=== PATIENT | male | born 1950 | race Caucasian/White ===

== ENCOUNTER 2018-06-03 07:09 | Inpatient (IN) | payer MEDICARE, SELFPAY ==
[2018-06-03] VITALS (13 sets, daily range): BP systolic 108–163; BP diastolic 67–101; PULSE 87–113; RESP 15–19; TEMP 36.8–37.1; O2SAT 96–99; BMI 24.3; BMI 32.4; BMI 32.5
--- NOTE | 2018-06-03 07:27 | EKG12_ITS ---
Test Reason : CP,BACK PAIN Blood Pressure : / mmHG Vent. Rate : 116 BPM Atrial Rate : 116 BPM P-R Int : 174 ms QRS Dur : 082 ms QT Int : 320 ms P-R-T Axes : 064 077 067 degrees QTc Int : 444 ms Sinus tachycardia Low Voltage QRS (Limb Leads) Nonspecific T-Wave Abnormality Confirmed by BOOM GLOVER, KWASI ([id number]), order editor RANI IRAHETA ([id number]) on 06/05/2018 1:26:34 PM Referred By: ILIR Confirmed By:KWASI NUR MD
--- NOTE | 2018-06-03 07:41 | ED.VISSUMM ---
- ER Visit Summary Date of Service: 06/03/18 Chief Complaint: Right shoulder and back pain History of Present Illness: The patient is a 67 M who presents with right shoulder and back pain that began today. Patient states the pain is a dull ache and is localized to the right scapular area. Patient is pain radiated across his upper back. Patient states the pain is mild at the present time. Patient states nothing makes it better or worse. Patient states he did have some cold sweats recently. Patient also admits to some nausea and vomiting yesterday with black emesis. Patient states she did have an episode of black stools 2 days ago but states his stools were normal yesterday. Patient admits to some increasing fatigue. Physical Examination: Vital signs are stable except for mild tachycardia of 113. Patient is afebrile. Patient is in no acute distress. Oral mucosa is pink and moist. Neck is supple. Trachea is midline. There is no JVD noted. Heart was regular rate and rhythm. Lungs are clear and equal bilateral. Abdomen is soft. Bowel sounds are normal. There is no tenderness. There is no guarding noted. Rectal exam showed good sphincter tone. There is brown stool noted. There are no masses palpated. Skin is warm dry.. Patient states she has a history of Raynauds disease. Radial pulses are equal bilaterally. Cranial nerves II through XII are intact. There are no focal motor or sensory deficits noted. The remaining physical exam is within normal limits. Test Results: EKG showed sinus tachycardia with a rate of 116. There are no acute ST or T wave changes. There are no prior EKGs available for comparison. CBC showed a mild anemia with a hemoglobin of 11.1 and hematocrit 33.6. BUN was 39 and creatinine was 1.46. There are no prior labs available for comparison. INR was 1.0 and PTT was 23. Troponin was normal. Emergency Department Course and Treatment: Patient was given IV fluids here. Patient refused nitroglycerin. Case was discussed with Dr. Augustine initially. She noted that the patient has seen Dr. Pedersen the past. Case was discussed with Dr. Pedersen. She is agreeable to admitting the patient here to the hospitalist service with her consulting. Case was discussed with Dr. Sun. He was in to evaluate the patient. He will admit the patient to his service. Patient understood and was agreeable with the plan. All questions were answered. Disposition: Admit to hospital Impression: Upper GI bleed This note was generated with [employer] dictation software. It may contain incorrect words, spelling, and punctuation that were not noted in review of the chart prior to signing ED Disposition - Plan for ED Patient: Disposition: Acute Care Hospital [facility] Diagnosis: Upper GI bleeding Referrals: Kwaku Price MD [Primary Care Provider] -
[2018-06-03 07:42] LABS: Absolute Lymphocyte Count 1.29 X10^3/ul (0.83-4.51); Absolute Neutrophil Count 10.3 X10^3/uL (2.0-7.7); Basophil# 0.02 X10^3/uL; Basophil% 0.2 % (0-1); Eosinophil# 0.05 X10^3/uL; Eosinophils% 0.4 % (0-5); Hematocrit 33.6 % (40-54); Hemoglobin 11.1 g/dl (13.0-16.5); Lymphocyte # 1.29 X10^3/ul (4.0); Lymphocyte % 10.2 % (19-41); Mean Corpuscular Hgb 31.9 pg (27.0-32.0); Mean Corpuscular Volume 96.6 fL (80-94); Mean Platelet Vol. 8.8 fl (6.2-12.0); Monocyte# 0.96 X10^3/uL; Monocyte% 7.6 % (0-10); Neutrophil # 10.26 X10^3/uL (2.7-7.7); Neutrophil % 81.4 % (47-70); Platelet Count 327 K/mm3 (150-450); Prothrombin Time (Protime)PT. 12.9 SECONDS (11.7-14.9); RBC Distribution Width CV 13.1 % (11.6-14.6); RBC Distribution Width SD 45.3 fl (35.1-43.9); Red Blood Count 3.48 M/mm3 (4.6-6.2); White Blood Count 12.6 K/mm3 (4.4-11.0)
[2018-06-03 07:50] LABS: AST(SGOT) 17 U/L (15-37); Alanine Aminotransfer ALT/SGPT 25 U/L (16-61); Albumin, Serum 3.6 g/dL (3.2-5.0); Alkaline Phosphatase 66 U/L (45-117); Anion Gap 7 (5-15); BUN 39 mg/dL (7-18); BUN/Creat Ratio 26.7 RATIO (10-20); Chloride 103 mmol/L (98-107); Creatinine, Serum 1.46 mg/dL (0.70-1.30); EST Glomerular Filtration Rate 51 mL/min (>60); Est Glom Filt Rate - Afr Amer 62 mL/min (>60); Globulin 3.5 g/dL (2.2-4.2); Glucose 170 mg/dL (74-106); Lipase 123 U/L (73-393); Protein, Total 7.1 g/dL (6.4-8.2); Sodium Level 137 mmol/L (136-145)
[2018-06-03 07:52] LABS: POSITIVE COUNT NO; POSITIVE DIFFERENTIAL NO; POSITIVE MORPHOLOGY NO
--- NOTE | 2018-06-03 08:06 | CT_ITS ---
STUDY: CT ABDOMEN AND PELVIS WITHOUT CONTRAST REASON FOR EXAM: Male, 67 years old. Back pain, dark stools, vomiting, tachycardia. History of hypertension. RADIATION DOSAGE (If Supplied By Facility): CTDIvol = ( 8.09 ) mGy, DLP = ( 396.69 ) mGycm TECHNIQUE: Transaxial images were obtained from the dome of the diaphragm to the symphysis pubis without oral contrast, and without intravenous contrast. Sagittal and coronal images were reconstructed. Individualized dose optimization techniques were used for this CT. COMPARISON: None. FINDINGS: The visualized lung bases demonstrate a few, small, scattered foci of subsegmental atelectasis. No pleural effusion. No pneumothorax. The visualized portions of the heart are within normal limits. Normal liver. Normal gallbladder and extrahepatic biliary system. Normal spleen. Normal pancreas. Normal bilateral adrenal glands. Normal right kidney. Normal left kidney. Normal visualized stomach. Normal small intestine. There are scattered, uncomplicated colonic diverticula, predominantly involving mildly redundant sigmoid colon. The appendix is visualized and appears normal. There is no free fluid. There is no free air. Normal abdominal aorta except for calcified plaque through visualized aortoiliac system.. Normal inferior vena cava. There is minimal nonspecific perinephric renal stranding bilaterally. Normal urinary bladder. Normal abdominal wall. There is no acute osseous abnormality. There is no suspicious lytic or blastic osseous finding. Moderate diffuse degenerative changes are identified throughout visualized spine. CT/Abdomen/Pelvis without Cont IMPRESSION: Diverticulosis without CT evidence of diverticulitis. No evident obstruction. No free fluid. No free air. Lung bases demonstrating a few, small, scattered foci of subsegmental atelectasis. Atherosclerotic peripheral vascular disease. No suspicious lytic or blastic osseous finding. Electronically Signed: Henry Brown MD at 9:04 EDT , Service support ,
[2018-06-03] MEDS: 0.9% Normal Saline 1,000 ML 1000 ML IV (08:15)
--- NOTE | 2018-06-03 10:21 | HP.PCM_ITS ---
Problem List (1) CHRONIC ALCOHOL USE DEPENDENCE Status: Acute (2) Acute kidney injury Status: Acute (3) Coronary artery disease Status: Chronic Comment: s/p 2 stents (4) Stroke Status: Chronic (5) Raynauds disease Status: Chronic History of Present Illness Date of Admission: 06/03/18 Chief Complaint: Upper GI bleed [ This is a 67 patient gentleman with history of coronary artery disease status post 2 stents, stroke no residual deficit couple years ago came to ED with right shoulder pain. Right shoulder pain which he thought angina equivalent and took 2 nitro and aspirin prior to arrival. prior to that, he had nausea, 2 times vomiting with black/brown stuff and black stool yesterday. He went to work and felt dizzy and diaphoretic on walking 50-100 feet and shoulder pain and EMS was called and nitro was given. EKG shows sinus tachycardia at 118 bpm. Vitals in ED is positive for orthostatic changes, heart rate went up from 94 - 111 upon standing up blood pressure dropped from 134/68 to 118/86 although he does not meet orthostatic hypotension criteria. Basic labs shows H&H 11.1/36.6, mild leukocytosis 2.6 thousand. Platelet count 3 27,000. BUN/creatinine 39/1.46. Troponin negative. patient denies previous history of GI bleed. No previous labs to compare with. Past Medical History Past Medical History (Chronic Problems): Chronic Problems Coronary artery disease (Chronic) s/p 2 stents Stroke (Chronic) Raynauds disease (Chronic) Allergies No Known Allergies Allergy (Verified 11/02/14 07:07) Home Medications: Ambulatory Orders Medication Instructions Recorded Lovastatin [Mevacor] 20 mg PO DAILY 11/02/14 Metoprolol Tartrate [Lopressor 50 mg PO BID 11/02/14 (Beta Cely)] Smoking Status: Former smoker - *Family History Paternal History Items: Cancer - doesn't know type and organ Review of Systems Constitutional: Denies: Chills, Fever, Weight Change HEENT: Denies: Head Aches, Sinus Congestion, Sinus Drainage Cardiovascular: Reports: Light Headedness. Denies: Chest Pain, Palpitations Respiratory: Reports: Shortness of breath upon exertion. Denies: Cough, Shortness of breath at rest, Sputum production Gastrointestinal: Reports: Hematemesis, Melena. Denies: Abdominal Pain, Nausea, Vomiting Genitourinary: Denies: Dysuria Musculoskeletal: Reports: Shoulder Pain. Denies: Joint Pain, Joint Tenderness Skin: Denies: Rash, Wounds Neurological: Denies: Numbness, Tingling, Focal weakness Psychiatric: Denies: Anxiety, Depression, Homicidal Ideations, Suicidal Ideations Hematologic/ Lymphatic: Denies: Easy Bruising, Easy Bleeding VTE Information - Inpt Only VTE Present on Admission: No VTE Mechan Device Prophylaxis: SCD's VTE Pharm Prophylaxis ordered?: No Reason prophylaxis not ordered:: Medical Contraindication Patient Problems: Active and Suspected Problems Upper GI bleeding (Acute) CHRONIC ALCOHOL USE DEPENDENCE (Acute) Acute kidney injury (Acute) - Physical Exam General: Alert, Oriented x3, Cooperative HEENT: Atraumatic, PERRLA, EOMI, Normocephalic Neck: Supple, No JVD, Negative Carotid Bruits Lungs: Clear to auscultation, No rhonchi, No wheeze, No rales, Diminished - Air emtry slightly diminished in bilateral lung bases Cardiovascular: Regular rate, Regular Rhythm, Normal S1, Normal S2, No murmurs Abdomen: Bowel Sounds Present, Soft, Non Tender, Non-Distended Extremities: No edema, Capillary Refill Less than 3 Seconds Skin: No rashes, No breakdown Musculoskeletal: No Tenderness to Palpation of Joints or Extremities, Arthritic Changes Lymphatic: No Cervical, Supraclavicular, or Inguinal Adenopathy Neurological: Cranial nerves II-XII grossly intact, Deep Tendon Reflexes 2+/4 and Symmetrical, Neuro grossly intact, Motor Exam 5/5 strength throughout Psych/Mental Status: Normal Affect, Appropriate Vital Signs Temp Pulse Resp BP Pulse Ox 98.3 F 87 18 163/80 H 99 06/03/18 07:10 06/03/18 09:15 06/03/18 09:15 06/03/18 09:15 06/03/18 09:15 Oxygen Delivery Method Room Air Weight: 160 lb Body Mass Index (BMI) 24.3 Microbiology Past 72 Hours 06/03/18 07:35 Stool Occult Blood (JESSICA) - Final Stool Occult Blood Positive Laboratory Tests Past 24 Hrs 06/03/18 06/03/18 06/03/18 07:15 07:15 07:15 WBC 12.6 H RBC 3.48 L Hgb 11.1 L Hct 33.6 L MCV 96.6 H MCH 31.9 MCHC 33.0 RDW 13.1 RDW Differential 45.3 H Plt Count 327 MPV 8.8 Immature Gran % (Auto) 0.200 Neut % (Auto) 81.4 H Lymph % (Auto) 10.2 L [place] % (Auto) 7.6 Eos % (Auto) 0.4 Baso % (Auto) 0.2 Absolute Neuts (auto) 10.3 H Absolute Lymphs (auto) 1.29 Total Counted Not Reportable PT 12.9 INR 1.0 APTT 23.0 L Sodium 137 Potassium 4.0 Chloride 103 Carbon Dioxide 27.0 Anion Gap 7 BUN 39 H Creatinine 1.46 H Estim Creat Clear Calc 46.20 Est GFR (MDRD) Af Amer 62 Est GFR (MDRD) Non-Af 51 L BUN/Creatinine Ratio 26.7 H Glucose 170 H Calcium 9.0 Total Bilirubin 0.80 AST 17 ALT 25 Alkaline Phosphatase 66 Troponin I < 0.015 Total Protein 7.1 Albumin 3.6 Globulin 3.5 Albumin/Globulin Ratio 1.0 Lipase 123 Assessment/Plan All Active Problems Upper GI bleeding (Acute) CHRONIC ALCOHOL USE DEPENDENCE (Acute) Acute kidney injury (Acute) This is a 67 patient gentleman with history of coronary artery disease status post 2 stents, stroke with no residual deficit couple years ago came to ED with right shoulder pain. Right shoulder pain which he thought angina equivalent and took 2 nitro and aspirin prior to arrival. Prior to that, he had nausea, 2 times vomiting with black/brown stuff and black stool yesterday. He went to work and felt dizzy and diaphoretic on walking 50-100 feet and shoulder pain and EMS was called and nitro was given. EKG shows sinus tachycardia at 118 bpm. Vitals in ED is positive for orthostatic changes, heart rate went up from 94 - 111 upon standing up blood pressure dropped from 134/68 to 118/86 although he does not meet orthostatic hypotension criteria. Surgeon Dr. Smith was called by ER physician Basic labs shows H&H 11.1/36.6, mild leukocytosis 2.6 thousand. Platelet count 3 27,000. BUN/creatinine 39/1.46. Troponin negative. 1. Near syncope secondary to upper GI bleed: Stable. IV fluid normal saline. 2. Upper GI bleed: Patient said he had colonoscopy with 2 times but never had upper endoscopy. Dr. Pedersen has been consulted and she saw the patient. Her consult reviewed and appreciated. Monitored H&H. 3. Rectal mass history 2014: Patient did not tell me about rectal mass but as per Dr. 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 Follow-up proctoscopy exam in March 2015 showed no lesion. No follow-up since then. 4. Chronic alcohol use and dependence: Liver profile reported as normal. Albumin 3.6. Transaminases and total bilirubin within normal limit. CT abdomen shows normal liver parenchyma, normal gallbladder and extrahepatic bloody system. 5. Acute kidney injury mostly secondary to upper GI bleed/hemorrhage/hypovolemia: IV fluid normal saline. Monitor kidney function electrolytes. 6. Other chronic comorbidities include coronary artery disease status post stent, history of a stroke and anoxic disease: Home medication reconciled. Will hold aspirin. DVT prophylaxis: Bilateral SCDs. Pharmacological prophylaxis contraindicated in view of GI hemorrhage Clinical Impression(s) from Imaging Studies Abdomen/Pelvis CT 06/03/18 08:06 IMPRESSION: Diverticulosis without CT evidence of diverticulitis. No evident obstruction. No free fluid. No free air. Lung bases demonstrating a few, small, scattered foci of subsegmental atelectasis. Atherosclerotic peripheral vascular disease. No suspicious lytic or blastic osseous finding. Code Visit Inpatient E&M: 30110 Init Hosp L3
[2018-06-03] MEDS: 0.9% Normal Saline 1,000 ML 150 ML IV ×2 (11:16→18:12)
--- NOTE | 2018-06-03 11:58 | CON.PCM_ITS ---
- Consult Date of Consult: 06/03/18 - Reason for Consult Chief Complaint: rectal bleeding, anemia History of Present Illness: 67 y/o WM presents with rectal bleeding and anemia. I have been asked by the hospitalists for consultation for upper and lower endoscopy. Has noted for weeks, but more recently, he has noted a larger amount. Transanal excision of rectal mass 2014 - pathology findings of: - Tubulovillous adenoma with extensive high-grade dysplasia and focus suspicious for invasion, The focus suspicious for invasion is obscured by marked thermal artifact, however, the architectural features are worrisome for invasion. Follow up proctoscopic examination Mar 2015 - no lesions seen. No follow up since then. Past Medical History: hypertension hyperlipidemia coronary artery disease, s/p placement of two stents Past Surgical History: transanal excision of rectal mass 12/03/14 colonoscopy Medications: lovastatin metoprolol Allergies: Has no known drug allergies Social history: TOB use denies Review of Systems: General - denies fevers Cardiovascular denies chest pain Pulmonary denies shortness of breath, denies coughing up blood Gastrointestinal as per HPI, denies abdominal pain at present Neurological denies seizures Genitourinary denies burning with urination, denies blood in urine Hematological denies spontaneous/prolonged bleeding Skin denies open non healing wounds Musculoskeletal has some back pain Endocrine denies diabetes Psychological denies hallucinations Physical examination: Vital signs Temp 98.3F HR 87 BP163/80 RR 18 General WD/WN WM in no apparent distress, alert and oriented, not septic appearing HEENT Normocephalic. EOM intact with sclera clear and no icterus noted. Wearing glasses. Neck is supple with no jugular venous distention noted. Trachea is midline. Lungs clear to auscultation. normal breath sounds. No rales/rhonchi/wheezing noted. No labored breathing noted, such as retractions. No cough heard. Heart regular. . Abdomen soft and benign. Normal bowel sounds No abdominal bruits noted. N o distention noted. Extremities no calf tenderness noted. No pitting edema noted. No obvious deformity noted. Genitourinary/Rectal deferred Skin normal skin integrity. Neurological non focal. Psychological normal affect, patient is calm and appropriate Labs - 12.6K, Hct 11.1 Impression: rectal bleeding, anemia Plan: patient has not had a colonoscopy since 2014. Had proctosigmoidoscopy in 2016, no follow up of possible foci of rectal malignancy since then. I have offered upper and lower endoscsopy. I have explained the procedures to the patient. I have explained the risks of the procedure, including but not limited to: infection, bleeding, perforation of the GI tract, inability to complete the procedure, injury to any internal organs such as liver/spleen, complications of anesthesia, etc. - the patient understands. He wishes to proceed. I have encouraged him to ask questions and I have answered them and he has no further questions.
[2018-06-03] MEDS: 0.9% Saline Lock 10 ML Syringe IV (13:31)
[2018-06-03 14:48] LABS: Hematocrit 26.9 % (40-54)
[2018-06-03] MEDS: Electrolyte Solution/Peg's 4000 ML PO (16:40)
[2018-06-03 20:50] LABS: Hemoglobin 8.8 g/dl (13.0-16.5)
[2018-06-04] VITALS (18 sets, daily range): BP systolic 101–160; BP diastolic 50–90; PULSE 76–95; RESP 12–16; TEMP 36.3–37.2; O2SAT 94–99; BMI 24.3
[2018-06-04] MEDS: 0.9% Normal Saline 1,000 ML 150 ML IV ×4 (00:57→17:57)
[2018-06-04 06:29] LABS: International Normalized Ratio 1.1
[2018-06-04 06:30] LABS: Absolute Lymphocyte Count 0.89 X10^3/ul (0.83-4.51); Absolute Neutrophil Count 3.3 X10^3/uL (2.0-7.7); Basophil# 0.03 X10^3/uL; Basophil% 0.6 % (0-1); Eosinophil# 0.11 X10^3/uL; Eosinophils% 2.3 % (0-5); Hematocrit 25.8 % (40-54); Hemoglobin 8.4 g/dl (13.0-16.5); Lymphocyte # 0.89 X10^3/ul (4.0); Lymphocyte % 18.4 % (19-41); Mean Corp Hgb Conc 32.6 g/gl (32-36); Mean Corpuscular Hgb 31.8 pg (27.0-32.0); Mean Corpuscular Volume 97.7 fL (80-94); Mean Platelet Vol. 8.2 fl (6.2-12.0); Monocyte# 0.49 X10^3/uL; Monocyte% 10.1 % (0-10); Neutrophil # 3.31 X10^3/uL (2.7-7.7); Neutrophil % 68.4 % (47-70); Partial Thromboplast Time 26.9 Seconds (24.1-36.2); Platelet Count 208 K/mm3 (150-450); RBC Distribution Width CV 13.2 % (11.6-14.6); RBC Distribution Width SD 47.2 fl (35.1-43.9); Red Blood Count 2.64 M/mm3 (4.6-6.2); White Blood Count 4.8 K/mm3 (4.4-11.0)
[2018-06-04 06:31] LABS: POSITIVE COUNT NO; POSITIVE DIFFERENTIAL NO; POSITIVE MORPHOLOGY NO
[2018-06-04 06:49] LABS: Anion Gap 4 (5-15); BUN 14 mg/dL (7-18); BUN/Creat Ratio 16.9 RATIO (10-20); Calcium,Total 7.7 mg/dL (8.5-10.1); Chloride 116 mmol/L (98-107); Creatinine, Serum 0.83 mg/dL (0.70-1.30); EST Glomerular Filtration Rate 98 mL/min (>60); Est Glom Filt Rate - Afr Amer 118 mL/min (>60); Estimated Creatinine Clearance 81.27 ml/min; Glucose 105 mg/dL (74-106); Potassium 4.2 mmol/L (3.5-5.1); Sodium Level 146 mmol/L (136-145)
--- NOTE | 2018-06-04 11:24 | CASEMGMT ---
Addendum entered by Denis Edwards 06/04/18 11:33: Noted chronic ETOH use in chart. DEON Hirsch updated. Piper BSN RN ACM Original Note: RN CM Assessment Presentation: Rectal Bleeding. For EGD and colonoscopy today. Intro role of CM and purpose of RN CM assessment to patient in room. Pt is awake, alert and able to participate in assessment. Demographics, PCP and Pharmacy verified. Pt states he continues to work and plans to return home as soon as possible. PCP: Dr. Price Specialists: Dr. Pedersen Preferred [facility]acy: [facility] Insurance: [facility] Prescription Benefit: yes LNOK: Son, Darren Spencer Living Arrangements: [facility] [place]. Step up into [facility], then one floor. Pt states he is independent in all ADL's. Does not use any ambulatory devices. No care needs identified. Transportation: drives DME: none HHC: none Patient DC goals: Home DC PLAN: Home on discharge. No needs identified.
--- NOTE | 2018-06-04 15:48 | PCM.PROGNOTE ---
<Jose F Gee - Last Filed: 06/04/18 15:48> Subjective: Resting comfortably in bed, prior to endoscopy, no acute issues. Liquid Bms clear now. No dizzy/LH. No abdominal pain. No hx ulcers. - Physical Exam General: Alert, Oriented x3, Cooperative HEENT: Atraumatic, PERRLA, EOMI, Normocephalic Neck: Supple, No JVD, Negative Carotid Bruits Lungs: Clear to auscultation, Normal air movement Cardiovascular: Regular rate, No murmurs Abdomen: Bowel Sounds Present, Soft, Non Tender Extremities: No edema, Capillary Refill Less than 3 Seconds Skin: No rashes, No breakdown Musculoskeletal: No Tenderness to Palpation of Joints or Extremities Neurological: Cranial nerves II-XII grossly intact Psych/Mental Status: Normal Affect, Appropriate, Alert and oriented to time, place, person, mood and affect Vital Signs Temp Pulse Resp BP Pulse Ox 99.0 F 85 16 155/87 H 98 06/04/18 13:09 06/04/18 15:00 06/04/18 13:09 06/04/18 13:09 06/04/18 13:09 Oxygen Delivery Method Room Air Weight: 159 lb 15.831 oz Body Mass Index (BMI) 24.3 Intake and Output for Last 24 Hours 06/02/18 06/03/18 06/04/18 23:59 23:59 23:59 Intake Total 5557 / 5557 2560 / 2560 Balance 5557 / 5557 2560 / 2560 Microbiology Past 72 Hours 06/03/18 07:35 Stool Occult Blood (JESSICA) - Final Stool Occult Blood Positive Laboratory Tests Past 24 Hrs 06/03/18 06/04/18 06/04/18 20:23 05:50 05:50 WBC 4.8 RBC 2.64 L Hgb 8.8 L 8.4 L Hct 27.0 L 25.8 L MCV 97.7 H MCH 31.8 MCHC 32.6 RDW 13.2 RDW Differential 47.2 H Plt Count 208 MPV 8.2 Immature Gran % (Auto) 0.200 Neut % (Auto) 68.4 Lymph % (Auto) 18.4 L Sutter % (Auto) 10.1 H Eos % (Auto) 2.3 Baso % (Auto) 0.6 Absolute Neuts (auto) 3.3 Absolute Lymphs (auto) 0.89 Total Counted Not Reportable PT INR APTT Sodium 146 H Potassium 4.2 Chloride 116 H Carbon Dioxide 26.0 Anion Gap 4 L BUN 14 Creatinine 0.83 Estim Creat Clear Calc 81.27 Est GFR (MDRD) Af Amer 118 Est GFR (MDRD) Non-Af 98 BUN/Creatinine Ratio 16.9 Glucose 105 Calcium 7.7 L Blood Type Antibody Screen 06/04/18 06/04/18 05:50 10:20 WBC RBC Hgb Hct MCV MCH MCHC RDW RDW Differential Plt Count MPV Immature Gran % (Auto) Neut % (Auto) Lymph % (Auto) Sutter % (Auto) Eos % (Auto) Baso % (Auto) Absolute Neuts (auto) Absolute Lymphs (auto) Total Counted PT 14.0 INR 1.1 APTT 26.9 Sodium Potassium Chloride Carbon Dioxide Anion Gap BUN Creatinine Estim Creat Clear Calc Est GFR (MDRD) Af Amer Est GFR (MDRD) Non-Af BUN/Creatinine Ratio Glucose Calcium Blood Type A POSITIVE Antibody Screen NEGATIVE Medical Necessity - Tobacco Use Smoking Status: Former smoker Assessment/Plan All Active Problems Upper GI bleeding (Acute) CHRONIC ALCOHOL USE DEPENDENCE (Acute) Acute kidney injury (Acute) 1. Acute GI bleed presumed upper - black stools / coffee ground emesis. T/S. Colon/EGD per Dr. Anne. Protonix. Asa/plavix held. INR 1.0. Pt is asymptomatic. LFTs normal. 2. AP - resolved with fluids. 3. CAD and CVA - hold asa/plavix. 4. Hx Reynauds DVT ppx: SCDs This patient was seen by Jose F Gee PA-C under the supervision of Doctor Heber. <Garrett Buck - Last Filed: 06/05/18 16:38> Subjective: Seen and examined. Patient is on colon prep for colonoscopy tomorrow. No abdominal pain, nausea or vomiting. - Physical Exam General: Alert, Oriented x3, Cooperative HEENT: Atraumatic, PERRLA, EOMI, Normocephalic Neck: Supple, No JVD, Negative Carotid Bruits Lungs: Clear to auscultation, Normal air movement Cardiovascular: Regular rate, Regular Rhythm, Normal S1, Normal S2, No murmurs Abdomen: Bowel Sounds Present, Soft, Non Tender, Non-Distended Extremities: No edema, Capillary Refill Less than 3 Seconds Skin: No rashes, No breakdown Musculoskeletal: No Tenderness to Palpation of Joints or Extremities, Arthritic Changes Neurological: Cranial nerves II-XII grossly intact, Deep Tendon Reflexes 2+/4 and Symmetrical, Neuro grossly intact Psych/Mental Status: Normal Affect, Appropriate Vital Signs Temp Pulse Resp BP Pulse Ox 98.8 F 88 16 165/83 H 97 06/05/18 09:45 06/05/18 10:41 06/05/18 09:45 06/05/18 09:45 06/05/18 09:45 Oxygen Delivery Method Room Air Weight: 159 lb 15.831 oz Body Mass Index (BMI) 24.3 Intake and Output for Last 24 Hours 06/03/18 06/04/18 06/05/18 23:59 23:59 23:59 Intake Total 5557 / 5557 5011 / 5011 2163 / 2163 Balance 5557 / 5557 5011 / 5011 2163 / 2163 Microbiology Past 72 Hours 06/03/18 07:35 Stool Occult Blood (JESSICA) - Final Stool Occult Blood Positive Laboratory Tests Past 24 Hrs 06/05/18 05:46 WBC 5.2 RBC 2.57 L Hgb 8.2 L Hct 25.3 L MCV 98.4 H MCH 31.9 MCHC 32.4 RDW 13.1 RDW Differential 46.4 H Plt Count 225 MPV 8.3 Immature Gran % (Auto) 0.000 Neut % (Auto) 70.4 H Lymph % (Auto) 18.0 L Sutter % (Auto) 8.1 Eos % (Auto) 2.9 Baso % (Auto) 0.6 Absolute Neuts (auto) 3.6 Absolute Lymphs (auto) 0.93 Total Counted Not Reportable Assessment/Plan This patient was seen in conjunction with Jose F DAMON. I have independently interviewed and examined the patient and reviewed pertinent history, examination findings, laboratory and plan of management. I have reviewed the note and agree with the documented findings with the few additional points. In brief, patient is 67 gentleman with history of coronary artery disease status post 2 stents, stroke with no residual deficit couple years ago came to ED with right shoulder pain. Right shoulder pain which he thought angina equivalent and took 2 nitro and aspirin prior to arrival. Prior to that, he had nausea, 2 times vomiting with black/brown stuff and black stool yesterday. He went to work and felt dizzy and diaphoretic on walking 50-100 feet and shoulder pain and EMS was called and nitro was given. EKG shows sinus tachycardia at 118 bpm. Vitals in ED is positive for orthostatic changes, heart rate went up from 94 -111 upon standing up blood pressure dropped from 134/68 to 118/86 although he does not meet orthostatic hypotension criteria. Surgeon Dr. anne was called by ER physician Basic labs shows H&H 11.1/36.6, mild leukocytosis 2.6 thousand. Platelet count 3 27,000. BUN/creatinine 39/1.46. Troponin negative. 1. Near syncope secondary to upper GI bleed: Stable. IV fluid normal saline. Letter on IV fluid discontinued after he is euvolemic. 2. Upper GI bleed: Patient said he had colonoscopy with 2 times but never had upper endoscopy. Dr. Anne has been consulted and she saw the patient. Her consult reviewed and appreciated. H&H was monitored. Hemoglobin stable between 8 to 9 g%. Scheduled for EGD and colonoscopy tomorrow a.m. 3. Rectal mass history 2014: Patient did not tell me about rectal mass but as per Dr. Anne note, he had transanal excision of rectal mass at 1215 and pathology showed tubovillous adenoma with extensive high-grade dysplasia focal suspicion for invasion which was obscured by marked thermal artifact. Follow-up proctoscopy exam in March 2015 showed no lesion. No follow-up since then. 4. Chronic alcohol use and dependence: Liver profile reported as normal. Albumin 3.6. Transaminases and total bilirubin within normal limit. CT abdomen shows normal liver parenchyma, normal gallbladder and extrahepatic bloody system. 5. Acute kidney injury mostly secondary to upper GI bleed/hemorrhage/hypovolemia: IV fluid normal saline. AP resolved. 6. Other chronic comorbidities include coronary artery disease status post stent, history of a stroke and anoxic disease: Home medication reconciled. Will hold aspirin. DVT prophylaxis: Bilateral SCDs. Pharmacological prophylaxis contraindicated in view of GI hemorrhage I have discussed my assessment with Jose F DAMON and orders have been reviewed. Code Visit Inpatient E&M: 70829 Subs Hosp L2
--- NOTE | 2018-06-04 16:00 | EGD_PTH ---
PATIENT: JAYA MIRANDA LOC: [facility] U#:[id number] AGE/SX: 67/M ROOM: [facility] RE06/03/[address]: Dr. Garrett Buck MD : [id number] BED: 1 DIS: 06/05/2018 SPEC #: [id number] RECD: 06/04/18 17:17 STATUS: SILVER RE #: [id number] MAYRA: 06/04/18 16:[address]: Inocencia Pedersen DEPT: SURGICAL PATHOLOGY RECD BY: Long Bunn ENTERED: 06/05/18 13:10 SP TYPE: EGD BIOPSY OTHR DR: MD Dr. Inocencia Paniagua MD Dr. Prakash Chand, MD Tissues: A - Gastric mucous membrane B - Rectum, NOS Procedures: PAS Fungus (control) Special Stain Group II Special Stain Group I Surgery Specimen Level IV Alcian Blue/PAS (control) Comments: @ Ordering doctor for SUIV edited from to @ by MILLIE at 06/05/18 1538 @ Submitting doctor edited from to DR.LWANG Alex by MILLIE at 06/05/18 1538 HEADER OPERATION: Colonoscopy, EGD ([facility] [place]) PRE-OP DIAGNOSIS: Rectal mass TISSUE SUBMITTED: A - GE junction biopsy, B - Rectal mass biopsy MICROSCOPIC DIAGNOSIS A. GE junction, biopsy: Fragments of gastroesophageal mucosa with ulceration, moderate to marked acute and chronic inflammation and granulation tissue reaction. Intestinal metaplasia (goblet cell metaplasia) is not identified. Special stain for fungi is negative for organisms; matched control is appropriate. See comment. B. Rectal mass, biopsy: Fragments of tubular adenoma with multifocal high grade dysplasia/carcinoma in situ. Negative for invasive carcinoma. KRAIG:bridger 06/06/18 COMMENT A. Alcian blue/PAS stain with matched control is used in the evaluation of the specimen. Correlation with clinical, endoscopic findings and appropriate follow up are necessary. Please make reference to previous specimen ([id number]) rectal mass, biopsy with diagnosis of fragments of tubular adenoma with focal high grade dysplasia/carcinoma in situ. Case has been reviewed in consultation with Dr. Bernard who concurs with the above diagnosis. IDC:AM MICROSCOPIC DESCRIPTION Slides are reviewed. GROSS DESCRIPTION A - Received in fixative is one container labeled with the patient's name and designated GE junction biopsy. The specimen consists of two irregular fragments of light irene soft tissue that in aggregate measure 0.4 x 0.2 x 0.1 cm. The specimen is totally submitted in one cassette. B - Received in fixative is one container labeled with the patient's name and designated rectal mass biopsy. The specimen consists of multiple irregular fragments of light irene soft tissue that in aggregate measure 1 x 0.4 x 0.1 cm. The specimen is totally submitted in one cassette. / SJ:bridger 06/05/18 TC:0 CPT: 31583 x2, 76180, 57289
--- NOTE | 2018-06-04 16:55 | OP.ENDO_ITS ---
06/04/2018 Kwaku Price Re : Upper GI endoscopy procedure for Alexander Spencer Dear Dee This procedure was performed on Monday, June 04, 2018. My impressions and recommendations are as follows: Impressions : - Normal first portion of the duodenum and second portion of the duodenum. - Normal stomach. - Z-line irregular. Biopsied. Recommendations : - Discharge patient to home (ambulatory). - Resume previous diet. - Continue present medications. - Await pathology results. - My office will telephone with pathology results in 1-2 weeks My findings are described in the full procedure note, which is enclosed. If I can be of further assistance, please feel free to contact me at Doctor phone number(s): , Work: . Sincerely, MD Inocencia Varner MD 06/04/2018 4:55:25 PM This report has been signed electronically.
--- NOTE | 2018-06-04 16:59 | OP.ENDO_ITS ---
06/04/2018 Kwaku Price Re : Colonoscopy procedure for Alexander Galicia Dee This procedure was performed on Monday, June 04, 2018. My impressions and recommendations are as follows: Impressions : - Rectal mass. - Diverticulosis in the sigmoid colon. - Likely malignant tumor in the rectum. Biopsied. - Malignant-appearing tumor in the colon. Recommendations : - Discharge patient to home (ambulatory). - Resume previous diet. - Continue present medications. - Await pathology results. - My office will telephone with pathology results in 1-2 weeks - Repeat colonoscopy is recommended for surveillance. The colonoscopy date will be determined after pathology results from today's exam become available for review. My findings are described in the full procedure note, which is enclosed. If I can be of further assistance, please feel free to contact me at Doctor phone number(s): , Work: . Sincerely, MD Inocencia Varner MD 06/04/2018 4:59:35 PM This report has been signed electronically.
--- NOTE | 2018-06-04 17:57 | PCM.PN.BLA ---
Progress Note EGD essentially normal, mild irregularity at GE junction Rectal mass noted, biopsies pending I will make referral for patient to be evaluated by a colorectal surgeon. Patient can be discharged to home.
[2018-06-05] VITALS (7 sets, daily range): BP systolic 124–181; BP diastolic 60–97; PULSE 74–125; RESP 14–16; TEMP 36.6–37.1; O2SAT 95–97
[2018-06-05] MEDS: 0.9% Normal Saline 1,000 ML 150 ML IV ×2 (00:53→08:07)
[2018-06-05 06:13] LABS: Absolute Lymphocyte Count 0.93 X10^3/ul (0.83-4.51); Absolute Neutrophil Count 3.6 X10^3/uL (2.0-7.7); Basophil# 0.03 X10^3/uL; Basophil% 0.6 % (0-1); Eosinophil# 0.15 X10^3/uL; Eosinophils% 2.9 % (0-5); Hematocrit 25.3 % (40-54); Hemoglobin 8.2 g/dl (13.0-16.5); Lymphocyte # 0.93 X10^3/ul (4.0); Mean Corp Hgb Conc 32.4 g/gl (32-36); Mean Corpuscular Hgb 31.9 pg (27.0-32.0); Mean Corpuscular Volume 98.4 fL (80-94); Mean Platelet Vol. 8.3 fl (6.2-12.0); Monocyte# 0.42 X10^3/uL; Monocyte% 8.1 % (0-10); Neutrophil # 3.64 X10^3/uL (2.7-7.7); Neutrophil % 70.4 % (47-70); Platelet Count 225 K/mm3 (150-450); RBC Distribution Width CV 13.1 % (11.6-14.6); RBC Distribution Width SD 46.4 fl (35.1-43.9); Red Blood Count 2.57 M/mm3 (4.6-6.2); White Blood Count 5.2 K/mm3 (4.4-11.0)
[2018-06-05 06:26] LABS: POSITIVE COUNT NO; POSITIVE DIFFERENTIAL NO; POSITIVE MORPHOLOGY NO
--- NOTE | 2018-06-05 11:29 | DCINST_ITS ---
- Discharge Diagnoses Current Active Problems: Current Active and Chronic Problems Upper GI bleeding (Acute) CHRONIC ALCOHOL USE DEPENDENCE (Acute) Acute kidney injury (Acute) Coronary artery disease (Chronic) s/p 2 stents Stroke (Chronic) Raynauds disease (Chronic) You will use the following diet at home:: Cardiac, Other - No alcohol Your food should be the consistency of: Regular Your liquids should be the consistency of: Regular/Thin Discharge Activity: Return to Normal Activity Additional Instructions: No NSAIDs Allergies/Adverse Reactions: Allergies No Known Allergies Allergy (Verified 11/02/14 07:07) Medications to take at Discharge Atorvastatin Calcium [Lipitor] 40 mg PO QHS 06/03/18 Folic Acid 0.8 mg PO DAILY@0800 06/03/18 Losartan Potassium [Cozaar] 50 mg PO DAILY 06/03/18 Nitroglycerin [Nitrostat] 0.4 mg SL PRN PRN 06/03/18 Sildenafil Citrate [Viagra] 25 mg PO DAILY PRN 06/03/18 traZODone [Desyrel] 50 - 100 mg PO QHS PRN 06/03/18 Pantoprazole Sodium [Protonix] 40 mg PO BID #60 tablet 06/05/18 The following prescriptions were given: Pantoprazole Sodium [Protonix] 40 mg PO BID #60 tablet Primary Care Physician: Kwaku Price MD [Primary Care Provider] - Please follow up with your Primary Care Physician in: 1-2 weeks Test Results: Test results from this visit will be discussed in further detail at your follow- up appointment, if applicable. Please Follow Up With: Inocencia Pedersen MD When: Call for appointment Proposed Discharge Date: 06/05/18
--- NOTE | 2018-06-05 16:00 | DS.PCM_ITS ---
<Jose F Gee - Last Filed: 06/05/18 15:55> Discharge Date and Diagnosis Date of Admission: 06/03/18 Date of Discharge: 06/05/18 - Primary Discharge Diagnosis Acute GI bleed 2/2 rectal mass, suspect malignancy AP resolved Hx CAD Hx CVA Hx Reynauds - Secondary Discharge Diagnosis Chronic Problems Coronary artery disease (Chronic) s/p 2 stents Stroke (Chronic) Raynauds disease (Chronic) Hospital Course and Treatment Imaging Results: CT/Abdomen/Pelvis without Cont IMPRESSION: Diverticulosis without CT evidence of diverticulitis. No evident obstruction. No free fluid. No free air. Lung bases demonstrating a few, small, scattered foci of subsegmental atelectasis. Atherosclerotic peripheral vascular disease. No suspicious lytic or blastic osseous finding. CONSULTS: Slava - Gen Surg Operations: None Procedures: Colonoscopy, EGD Summary of Care Provided: Hospital course: The patient is a 67 year old M with pmhx of CVA, CAD on asprin/plavix, reynauds who presented to the ER with vomiting coffee ground emesis and black stools. He was found to be anemic with Hemoglobin of 11.1. He also appeared to have AP with elevated BUN/Creatinine suspected 2/2 dehydration He was made NPO, given IV protonix, IV fluids, supportive care, and general surgery was consulted. He was taken for an EKG and colonoscopy. A rectal mass suspicious for malignancy was found. Biopsies taken. A small abnormality at the GE junction was found. His hemoglobin declined to 8.2. He had no further bleeding. He was transitioned to PO protonix, and advised not to take aspirin or plavix at [place]. He will need to follow up with Dr. Anne as directed for his biopsy results and for referral to a colorectal surgeon. He will need to follow up with his PCP in 1-2 weeks. He was discharged home in stable condition. This patient was seen by Jose F Gee PA-C under the supervision of Doctor Buck. [] - Physical Exam General: Alert, Oriented x3, Cooperative HEENT: Atraumatic, PERRLA, EOMI, Normocephalic Neck: Supple, No JVD, Negative Carotid Bruits Lungs: Clear to auscultation, Normal air movement Cardiovascular: Regular rate, No murmurs Abdomen: Bowel Sounds Present, Soft, Non Tender Extremities: No edema, Capillary Refill Less than 3 Seconds Skin: No rashes, No breakdown Musculoskeletal: No Tenderness to Palpation of Joints or Extremities Neurological: Cranial nerves II-XII grossly intact Psych/Mental Status: Normal Affect, Appropriate Vital Signs Temp Pulse Resp BP Pulse Ox 98.8 F 88 16 165/83 H 97 06/05/18 09:45 06/05/18 10:41 06/05/18 09:45 06/05/18 09:45 06/05/18 09:45 Oxygen Delivery Method Room Air Weight: 159 lb 15.831 oz Body Mass Index (BMI) 24.3 Intake and Output for Last 24 Hours 06/03/18 06/04/18 06/05/18 23:59 23:59 23:59 Intake Total 5557 / 5557 5011 / 5011 2163 / 2163 Balance 5557 / 5557 5011 / 5011 2163 / 2163 Microbiology Past 72 Hours 06/03/18 07:35 Stool Occult Blood (JESSICA) - Final Stool Occult Blood Positive Laboratory Tests Past 24 Hrs 06/05/18 05:46 WBC 5.2 RBC 2.57 L Hgb 8.2 L Hct 25.3 L MCV 98.4 H MCH 31.9 MCHC 32.4 RDW 13.1 RDW Differential 46.4 H Plt Count 225 MPV 8.3 Immature Gran % (Auto) 0.000 Neut % (Auto) 70.4 H Lymph % (Auto) 18.0 L Williamson % (Auto) 8.1 Eos % (Auto) 2.9 Baso % (Auto) 0.6 Absolute Neuts (auto) 3.6 Absolute Lymphs (auto) 0.93 Total Counted Not Reportable Discharge Diet: Low fat/ Low Cholesterol, 2000 mg Sodium Diet Discharge Activity: Return to Normal Activity Home Medications: Medications to take at Discharge Atorvastatin Calcium [Lipitor] 40 mg PO QHS 06/03/18 Folic Acid 0.8 mg PO DAILY@0800 06/03/18 Losartan Potassium [Cozaar] 50 mg PO DAILY 06/03/18 Nitroglycerin [Nitrostat] 0.4 mg SL PRN PRN 06/03/18 Sildenafil Citrate [Viagra] 25 mg PO DAILY PRN 06/03/18 traZODone [Desyrel] 50 - 100 mg PO QHS PRN 06/03/18 Pantoprazole Sodium [Protonix] 40 mg PO BID #60 tablet 06/05/18 Following Prescrptions Were Given to Patient: Pantoprazole Sodium [Protonix] 40 mg PO BID #60 tablet Primary Care Physician: Kwaku Price MD [Primary Care Provider] - Please follow up with your Primary Care Physician in: 1-2 weeks Please Follow Up With: Inocencia Anne MD When: Call for appointment Disposition: Home Patient Condition:: Stable Medical Necessity - Tobacco Use Smoking Status: Former smoker Meaningful Use Info Meaningful Use Diagnoses (Choose all that apply): None applicable <Garrett Buck - Last Filed: 06/05/18 16:41> Discharge Date and Diagnosis - Secondary Discharge Diagnosis Chronic Problems Coronary artery disease (Chronic) s/p 2 stents Stroke (Chronic) Raynauds disease (Chronic) Hospital Course and Treatment Summary of Care Provided: This patient was seen in conjunction with Jose F DAMON. I have independently interviewed and examined the patient and reviewed pertinent history, examination findings, laboratory and plan of management. I have reviewed the note and agree with the documented findings with the few additional points. In brief, patient is 67 gentleman with history of coronary artery disease status post 2 stents, stroke with no residual deficit couple years ago came to ED with right shoulder pain. Right shoulder pain which he thought angina equivalent and took 2 nitro and aspirin prior to arrival. Prior to that, he had nausea, 2 times vomiting with black/brown stuff and black stool yesterday. He went to work and felt dizzy and diaphoretic on walking 50-100 feet and shoulder pain and EMS was called and nitro was given. EKG shows sinus tachycardia at 118 bpm. Vitals in ED is positive for orthostatic changes, heart rate went up from 94 - 111 upon standing up blood pressure dropped from 134/68 to 118/86 although he does not meet orthostatic hypotension criteria. Surgeon Dr. anne was called by ER physician Basic labs shows H&H 11.1/36.6, mild leukocytosis 2.6 thousand. Platelet count 3 27,000. BUN/creatinine 39/1.46. Troponin negative. 1. Near syncope secondary to upper GI bleed: Stable. IV fluid normal saline. Letter on IV fluid discontinued after he is euvolemic. 2. Upper GI bleed: Patient said he had colonoscopy with 2 times but never had upper endoscopy. Dr. Anne has been consulted and she saw the patient. Her consult reviewed and appreciated. H&H was monitored. Hemoglobin stable between 8 to 9 g%. H&H remained stable. Patient had EGD and colonoscopy. EEG report reported Z line irregular otherwise normal stomach and first and second portion of duodenum. 3. Rectal mass history 2014: Patient did not tell me about rectal mass but as per Dr. Anne note, he had transanal excision of rectal mass at 1215 and pathology showed tubovillous adenoma with extensive high-grade dysplasia focal suspicion for invasion which was obscured by marked thermal artifact. Follow-up proctoscopy exam in March 2015 showed no lesion. No follow-up since then. Colonoscopy reported as rectal mass, diverticulosis in sigmoid colon. Likely malignant tumor in the rectum which was biopsied. Malignant appearing tumor in the colon. 4. Chronic alcohol use and dependence: Liver profile reported as normal. Albumin 3.6. Transaminases and total bilirubin within normal limit. CT abdomen shows normal liver parenchyma, normal gallbladder and extrahepatic bloody system. 5. Acute kidney injury mostly secondary to upper GI b leed/hemorrhage/hypovolemia: IV fluid normal saline. AP resolved. 6. Other chronic comorbidities include coronary artery disease status post stent, history of a stroke and anoxic disease: Home medication reconciled. Will hold aspirin. DVT prophylaxis: Bilateral SCDs. Pharmacological prophylaxis contraindicated in view of GI hemorrhage I have discussed my assessment with Jose F DAMON and orders have been reviewed. Discharge medication reconciliation done. Discharge follow-up instructions completed. Discharge process discussed with the patient and all questions were answered to patient's satisfaction. EGD and colonoscopy findings explained to the patient. Patient was advised to follow-up with Dr. Anne in 1 week to go through biopsy report. The patient might need referral to colorectal surgeon. Total time spent, exact 35 minutes on discharge meds reconciliation, examination, review of imaging and blood test and discussion with the patient on follow-up instructions. [] - Physical Exam Vital Signs Temp Pulse Resp BP Pulse Ox 98.8 F 88 16 165/83 H 97 06/05/18 09:45 06/05/18 10:41 06/05/18 09:45 06/05/18 09:45 06/05/18 09:45 Oxygen Delivery Method Room Air Weight: 159 lb 15.831 oz Body Mass Index (BMI) 24.3 Intake and Output for Last 24 Hours 06/03/18 06/04/18 06/05/18 23:59 23:59 23:59 Intake Total 5557 / 5557 5011 / 5011 2163 / 2163 Balance 5557 / 5557 5011 / 5011 2163 / 2163 Microbiology Past 72 Hours 06/03/18 07:35 Stool Occult Blood (JESSICA) - Final Stool Occult Blood Positive Laboratory Tests Past 24 Hrs 06/05/18 05:46 WBC 5.2 RBC 2.57 L Hgb 8.2 L Hct 25.3 L MCV 98.4 H MCH 31.9 MCHC 32.4 RDW 13.1 RDW Differential 46.4 H Plt Count 225 MPV 8.3 Immature Gran % (Auto) 0.000 Neut % (Auto) 70.4 H Lymph % (Auto) 18.0 L Williamson % (Auto) 8.1 Eos % (Auto) 2.9 Baso % (Auto) 0.6 Absolute Neuts (auto) 3.6 Absolute Lymphs (auto) 0.93 Total Counted Not Reportable Code Visit Inpatient E&M: 66742 Disch Hosp
== END 2018-06-05 12:36 | disposition home or self-care (01) | DRG 375 ==
LOC: ED 09:51 → PCU 16:56
PROVIDERS: Physician Assistant; Surgery; Admitting Provider Internal Medicine; Emergency Provider Emergency Medicine; Family Provider Family Medicine; PCP Family Medicine; Visit Provider Internal Medicine
PROC: 0DJD8ZZ Inspection of Lower Intestinal Tract, Via Natural or Artificial Opening Endoscopic (ICD-10-PCS; CPT 45378; principal; 2018-06-04 15:55)
DX: C20 Malignant neoplasm of rectum (principal); N17.9 Acute kidney failure, unspecified; I25.10 Atherosclerotic heart disease of native coronary artery without angina pectoris; Z95.5 Presence of coronary angioplasty implant and graft; Z86.73 Personal history of transient ischemic attack (TIA), and cerebral infarction without residual deficits; Z79.82 Long term (current) use of aspirin; Z79.02 Long term (current) use of antithrombotics/antiplatelets; D64.9 Anemia, unspecified; E86.0 Dehydration; Z87.891 Personal history of nicotine dependence
CPT/HCPCS: 36415; 74176; 80048; 80053; 82274; 83690; 84484; 85014; 85018; 85025; 85610; 85730; 86850; 86900; 88305; 88312; 88313; 93005; 97802; 99285; J7030; A4216

== ENCOUNTER 2020-07-31 20:28 | Emergency (ER) | payer MEDICARE, SELFPAY ==
[2018-08-07 11:34] VITALS: BMI 24.3
[2020-07-31 20:29] VITALS: BP 203/103; PULSE 103; RESP 20; TEMP 37.4; O2SAT 98; BMI 23.6
--- NOTE | 2020-07-31 20:45 | RAD_ITS ---
STUDY: X-RAY CHEST REASON FOR EXAM: Male, 69 years old. Palpitations TECHNIQUE: Single frontal view of the chest. COMPARISON: None. FINDINGS: The lungs are clear and expanded. There is no demonstrated pleural abnormality. Normal size heart. Normal mediastinum and charles. Normal visualized pulmonary arteries. Normal visualized aortic arch and descending thoracic aorta. Normal visualized thoracic spine. Multiple rib fractures on the right, age indeterminate. Old clavicles Fracture on the right. There is no demonstrated abnormality of the visualized soft tissue structures of the upper abdomen. RAD/Chest 1 View (Portable) IMPRESSION: Multiple right ribs fractures, age indeterminate. Otherwise no acute disease.. Electronically Signed: Santiago Gongora MD at 21:51 EDT , Service support ,
--- NOTE | 2020-07-31 20:46 | EKG12_ITS ---
Test Reason : GENERAL ILLNESS Blood Pressure : / mmHG Vent. Rate : 096 BPM Atrial Rate : 096 BPM P-R Int : 222 ms QRS Dur : 096 ms QT Int : 338 ms P-R-T Axes : 073 063 037 degrees QTc Int : 427 ms Sinus rhythm with 1st degree A-V block Septal infarct , age undetermined Abnormal ECG Confirmed by FRANKI GLOVER, FATOU ([id number]), supervising editor news reel RANI IRAHETA ([id number]) on 08/02/2020 10:44:39 A M Referred By: LOLA Confirmed By:SUSANNAH DOAN MD
--- NOTE | 2020-07-31 20:52 | EX.ED.DYSGE1 ---
HPI <Dr. Alfie Dennis DO - Last Filed: 07/31/20 22:58> History of Present Illness Chief Complaint: General Illness Informant: patient Onset/Context/Timing Onset: Today Context: Sudden Onset Timing: Continuous Quality: Lightheaded Location: Generalized Worsened by: Standing Relieved by: Nothing Narrative Narrative: Patient presents with dizziness that began today. Patient states he feels lightheaded. Patient states this is worse with standing. Patient states he remembered to take his blood pressure medicines approximately 1 to 2 hours prior to arrival. Patient states he normally takes them in the morning. Patient states he forgot to take them this morning. Patient states nothing seems to help with the symptoms. Patient denies any chest pain. Patient denies any shortness of breath. Patient denies any nausea or vomiting. Patient denies any headaches. PFSH <Dr. Alfie Dennis DO - Last Filed: 07/31/20 22:58> [facility] Medical History Acute kidney injury Alcohol abuse Atherosclerosis of coronary artery of [place] heart without angina pectoris Colon cancer Colon polyps (~2001) CVA (cerebral vascular accident) (~2014) Essential hypertension Gout Hyperlipidemia NSTEMI (non-ST elevated myocardial infarction) (~09/16/15) Raynauds disease Upper GI bleeding Home Medications atorvastatin 40 mg PO QHS 06/03/18 [History Last Taken Unknown] losartan 50 mg PO DAILY 06/03/18 [History Last Taken Unknown] sildenafil [Viagra] 25 mg PO DAILY PRN 06/03/18 [History Last Taken Unknown] Allergy/AdvReac Type Severity Reaction Status Date / Time No Known Allergies Allergy Verified 08/07/18 11:38 Family History Father , Age 67 Cancer Mother CVA (cerebral vascular accident) Surgical History History of benign colon tumor Presence of stent in coronary artery Social History Smoking Status: Former smoker how long ago did patient quit smokin alcohol intake: current alcohol intake frequency: 3 or more drinks per day Alcohol type: beer substance use type: does not use caffeine: Yes Type: coffee ROS <Dr. Alfie Dennis, DO - Last Filed: 07/31/20 22:58> ROS ED Constitutional Constitutional ED: Denies chills or fever(s) Eyes Eyes: Denies blurry vision or change in vision ENT ENT ED: Denies rhinorrhea or sore throat Cardiovascular Cardiovascular: Denies chest pain or palpitations Respiratory/Chest Respiratory/Chest: Denies cough or dyspnea Gastrointestinal Gastrointestinal: Denies nausea or vomiting Genitourinary Genitourinary ED: Denies dysuria or hematuria Musculoskeletal Musculoskeletal: Denies back pain or neck pain Integumentary Denies abscess or rash Neurologic Neurologic: Denies headache(s) or weakness Allergic/Immunologic Allergic/Immunologic ED: Denies mouth swelling or urticaria EXAM <Dr. Alfie Dennis, DO - Last Filed: 07/31/20 22:58> Physical Exam Const Vital Signs: 07/31/20 20:29 07/31/20 20:37 07/31/20 21:36 Temperature 99.4 F H Temperature Source Temporal Pulse Rate 103 H Pulse Rate [Lying] 86 Pulse Rate [Sitting] 86 Pulse Rate [Standing] 82 Respiratory Rate 20 H Respiratory Effort Normal Respiratory Pattern Normal Blood Pressure 203/103 H Blood Pressure [Lying] 190/101 H Blood Pressure [Sitting] 185/102 H Blood Pressure [Standing] 191/100 H Blood Pressure Mean 136 Blood Pressure Mean [Lying] 130 Blood Pressure Mean [Sitting] 129 Blood Pressure Mean [Standing] 130 Pulse Ox 98 Oxygen Delivery Method Room Air 07/31/20 21:37 07/31/20 22:27 07/31/20 23:21 Temperature Temperature Source Pulse Rate 86 83 78 Pulse Rate [Lying] Pulse Rate [Sitting] Pulse Rate [Standing] Respiratory Rate 20 H 15 21 H Respiratory Effort Respiratory Pattern Blood Pressure 190/100 H 180/92 H 174/95 H Blood Pressure [Lying] Blood Pressure [Sitting] Blood Pressure [Standing] Blood Pressure Mean 130 121 121 Blood Pressure Mean [Lying] Blood Pressure Mean [Sitting] Blood Pressure Mean [Standing] Pulse Ox 100 96 94 Oxygen Delivery Method Room Air Room Air Room Air 08/01/20 00:05 Temperature Temperature Source Pulse Rate 74 Pulse Rate [Lying] Pulse Rate [Sitting] Pulse Rate [Standing] Respiratory Rate 18 Respiratory Effort Respiratory Pattern Blood Pressure 178/100 H Blood Pressure [Lying] Blood Pressure [Sitting] Blood Pressure [Standing] Blood Pressure Mean Blood Pressure Mean [Lying] Blood Pressure Mean [Sitting] Blood Pressure Mean [Standing] Pulse Ox 96 Oxygen Delivery Method Positive well nourished and well developed General Appearance ED: well developed HEENT Reports moist mucous membranes Neck supple and no JVD Resp normal respiratory effort and clear to auscultation bilaterally Cardio regular rate, regular rhythm and no murmurs GI normal to inspection, nondistended, normoactive bowel sounds and non-tender Palpation: soft Extremity normal to inspection General Extremety ED: Negative for edema or tenderness General Extremity: Negative for edema Neuro oriented x3, CN's II-XII intact bilaterally and no sensory deficits noted Sensorium / Orientation: alert Motor Exam: strength 5/5 throughout Psych mental status grossly normal Skin no rashes or lesions noted <Dr. Chip Umanzor, DO - Last Filed: 08/01/20 04:23> Physical Exam Const Vital Signs: 07/31/20 20:29 07/31/20 20:37 07/31/20 21:36 Temperature 99.4 F H Temperature Source Temporal Pulse Rate 103 H Pulse Rate [Lying] 86 Pulse Rate [Sitting] 86 Pulse Rate [Standing] 82 Respiratory Rate 20 H Respiratory Effort Normal Respiratory Pattern Normal Blood Pressure 203/103 H Blood Pressure [Lying] 190/101 H Blood Pressure [Sitting] 185/102 H Blood Pressure [Standing] 191/100 H Blood Pressure Mean 136 Blood Pressure Mean [Lying] 130 Blood Pressure Mean [Sitting] 129 Blood Pressure Mean [Standing] 130 Pulse Ox 98 Oxygen Delivery Method Room Air 07/31/20 21:37 07/31/20 22:27 07/31/20 23:21 Temperature Temperature Source Pulse Rate 86 83 78 Pulse Rate [Lying] Pulse Rate [Sitting] Pulse Rate [Standing] Respiratory Rate 20 H 15 21 H Respiratory Effort Respiratory Pattern Blood Pressure 190/100 H 180/92 H 174/95 H Blood Pressure [Lying] Blood Pressure [Sitting] Blood Pressure [Standing] Blood Pressure Mean 130 121 121 Blood Pressure Mean [Lying] Blood Pressure Mean [Sitting] Blood Pressure Mean [Standing] Pulse Ox 100 96 94 Oxygen Delivery Method Room Air Room Air Room Air 08/01/20 00:05 Temperature Temperature Source Pulse Rate 74 Pulse Rate [Lying] Pulse Rate [Sitting] Pulse Rate [Standing] Respiratory Rate 18 Respiratory Effort Respiratory Pattern Blood Pressure 178/100 H Blood Pressure [Lying] Blood Pressure [Sitting] Blood Pressure [Standing] Blood Pressure Mean Blood Pressure Mean [Lying] Blood Pressure Mean [Sitting] Blood Pressure Mean [Standing] Pulse Ox 96 Oxygen Delivery Method [facility] <Dr. Alfie Dennis, DO - Last Filed: 07/31/20 22:58> [facility] Narrative Medical decision making narrative: Patient was given a dose of labetalol here. Patient's blood pressure improved to 190/100. CBC and comprehensive metabolic profile were obtained. Creatinine was slightly elevated at 1.49. Troponin was normal. Orthostatic vital signs were obtained and were within normal limits. Patient was given a repeat dose of labetalol. Portable chest x-ray was obtained. There is 1 view. On my interpretation, there is no acute cardiopulmonary process. The lungs are clear. There are old rib fractures on the right. Radiologist also interpreted the x-ray and agrees. EKG was obtained. On my interpretation, it showed a normal sinus rhythm with a first-degree AV block with a rate of 96. QRS interval and QTc intervals were all normal. [place] was normal. There are no acute ST or T wave changes. This was unchanged compared to previous EKG dated 06/03/2018. Patient's blood pressure was still elevated. Patient was given a dose of clonidine here. Care of the patient was turned over to the oncoming physician. If his blood pressure improves he will be able to be discharged home. If his blood pressure remains elevated he may need to be admitted for hypertensive urgency. Lab Data Attestation: I reviewed the patient's lab results. Labs: Laboratory Results - last 24 hr 07/31/20 07/31/20 20:35 20:35 WBC 6.6 RBC 4.12 L Hgb 13.1 Hct 40.7 MCV 98.8 H MCH 31.8 MCHC 32.2 RDW Std Deviation 45.8 H RDW Coeff of Jessi 12.4 Plt Count 329 MPV 8.3 Immature Gran % (Auto) 0.500 Neut % (Auto) 68.0 Lymph % (Auto) 16.8 L [place] % (Auto) 11.9 H Eos % (Auto) 2.3 Baso % (Auto) 0.5 Absolute Neuts (auto) 4.5 Absolute Lymphs (auto) 1.11 Nucleated RBC % 0 Sodium 137 Potassium 4.3 Chloride 101 Carbon Dioxide 28.0 Anion Gap 8 BUN 25 H Creatinine 1.49 H Estim Creat Clear Calc 43.99 Est GFR (MDRD) Af Amer 60 Est GFR (MDRD) Non-Af 49 L BUN/Creatinine Ratio 16.8 Glucose 143 H Calcium 8.9 Total Bilirubin 0.70 AST 17 ALT 25 Alkaline Phosphatase 92 Troponin I < 0.015 Total Protein 7.9 Albumin 3.8 Globulin 4.1 Albumin/Globulin Ratio 0.9 Radiography Chest X-Ray - ED: 1 View, Read by ED Physician, Read by Radiologist, No Acute Disease and Right Rib Fx (Multiple old right rib fractures) Diagnostic Testing: Radiology Impression Chest X-Ray 07/31/20 20:45 IMPRESSION: Multiple right ribs fractures, age indeterminate. Otherwise no acute disease.. Electronically Signed: Santiago Gongora MD at 21:51 EDT , Service support , EKG Initial EKG: Attestation: I personally reviewed and interpreted this EKG as follows: Interpretation: Sinus Rhythm (First-degree AV block with a rate of 96) and No Acute Injury Pattern Prior EKG tracings: available for review Prior: Unchanged (06/03/2018) <Dr. Chip Umanzor, DO - Last Filed: 08/01/20 04:23> [facility] MDM Narrative Medical decision making narrative: Patient signed out to me at shift change for follow-up on blood pressure control. Patient's blood pressure is now 178/100. I feel he is safe to be discharged home. Patient will follow up with his PCP to ensure that his blood pressure medications do not need to be adjusted. Lab Data Attestation: I reviewed the patient's lab results. Labs: Laboratory Results - last 24 hr 07/31/20 07/31/20 20:35 20:35 WBC 6.6 RBC 4.12 L Hgb 13.1 Hct 40.7 MCV 98.8 H MCH 31.8 MCHC 32.2 RDW Std Deviation 45.8 H RDW Coeff of Jessi 12.4 Plt Count 329 MPV 8.3 Immature Gran % (Auto) 0.500 Neut % (Auto) 68.0 Lymph % (Auto) 16.8 L [place] % (Auto) 11.9 H Eos % (Auto) 2.3 Baso % (Auto) 0.5 Absolute Neuts (auto) 4.5 Absolute Lymphs (auto) 1.11 Nucleated RBC % 0 Sodium 137 Potassium 4.3 Chloride 101 Carbon Dioxide 28.0 Anion Gap 8 BUN 25 H Creatinine 1.49 H Estim Creat Clear Calc 43.99 Est GFR (MDRD) Af Amer 60 Est GFR (MDRD) Non-Af 49 L BUN/Creatinine Ratio 16.8 Glucose 143 H Calcium 8.9 Total Bilirubin 0.70 AST 17 ALT 25 Alkaline Phosphatase 92 Troponin I < 0.015 Total Protein 7.9 Albumin 3.8 Globulin 4.1 Albumin/Globulin Ratio 0.9 Radiography Diagnostic Testing: Radiology Impression Chest X-Ray 07/31/20 20:45 IMPRESSION: Multiple right ribs fractures, age indeterminate. Otherwise no acute disease.. Electronically Signed: Santiago Gongora MD at 21:51 EDT , Service support , Discharge Plan Triage Chief Complaint: General Illness ED Provider: Alfie Dennis Dx/Rx/DC Orders Clinical Impression: Essential hypertension Instructions: ED High Blood Pressure ... Prescriptions: No Action losartan 50 MG tablet 50 mg PO DAILY RF: 0 atorvastatin 40 MG tablet 40 mg PO QHS RF: 0 sildenafil [Viagra] 25 MG tablet 25 mg PO DAILY PRN (Reason: ERECTILE) RF: 0 Primary Care Provider: Kwaku Price Referrals: Kwaku Price MD [Primary Care Provider] - 2 Days Disposition Discharge Date/Time: 08/01/20 00:06
[2020-07-31 20:59] LABS: Absolute Lymphocyte Count 1.11 X10^3/uL (0.83-4.51); Absolute Neutrophil Count 4.5 X10^3/uL (2.0-7.7); Basophil# 0.03 X10^3/uL; Basophil% 0.5 % (0-1); Eosinophil# 0.15 X10^3/uL; Eosinophils% 2.3 % (0-5); Hematocrit 40.7 % (40-54); Hemoglobin 13.1 g/dL (13.0-16.5); Lymphocyte # 1.11 X10^3/ul (0.83-4.51); Lymphocyte % 16.8 % (19-41); Mean Corp Hgb Conc 32.2 g/dL (32-36); Mean Corpuscular Hgb 31.8 pg (27.0-32.0); Mean Corpuscular Volume 98.8 fL (80-94); Mean Platelet Vol. 8.3 fl (6.2-12.0); Monocyte# 0.79 X10^3/uL; Monocyte% 11.9 % (0-10); NRBC Flagged by Analyzer 0 % (0-5); Neutrophil # 4.51 X10^3/uL (2.7-7.7); Platelet Count 329 K/mm3 (150-450); RBC Distribution Width CV 12.4 % (11.6-14.6); RBC Distribution Width SD 45.8 fl (35.1-43.9); Red Blood Count 4.12 M/mm3 (4.6-6.2); White Blood Count 6.6 K/mm3 (4.4-11.0)
[2020-07-31] MEDS: Labetalol (Prefilled) 20 MG/4 ML 10 MG IV ×2 (21:13→22:27)
[2020-07-31 21:14] LABS: ALB/GLOB Ratio 0.9 RATIO (0.9-2.4); AST(SGOT) 17 U/L (15-37); Alanine Aminotransfer ALT/SGPT 25 U/L (16-61); Albumin, Serum 3.8 g/dL (3.2-5.0); Alkaline Phosphatase 92 U/L (45-117); Anion Gap 8 (5-15); BUN 25 mg/dL (7-18); BUN/Creat Ratio 16.8 RATIO (10-20); Calcium,Total 8.9 mg/dL (8.5-10.1); Chloride 101 mmol/L (98-107); Creatinine, Serum 1.49 mg/dL (0.70-1.30); EST Glomerular Filtration Rate 49 mL/min (>60); Est Glom Filt Rate - Afr Amer 60 mL/min (>60); Estimated Creatinine Clearance 43.99 ml/min; Globulin 4.1 g/dL (2.2-4.2); Glucose 143 mg/dL (74-106); Potassium 4.3 mmol/L (3.5-5.1); Protein, Total 7.9 g/dL (6.4-8.2); Sodium Level 137 mmol/L (136-145)
[2020-07-31 21:36] VITALS: BP 185/102; BP 190/101; BP 191/100; PULSE 82; PULSE 86
[2020-07-31 21:37] VITALS: BP 190/100; PULSE 86; RESP 20; O2SAT 100
[2020-07-31 22:27] VITALS: BP 180/92; PULSE 83; RESP 15; O2SAT 96
[2020-07-31 23:21] VITALS: BP 174/95; PULSE 78; RESP 21; O2SAT 94
[2020-07-31] MEDS: cloNIDine HCl 0.1 MG Tablet PO (23:23)
[2020-08-01 00:05] VITALS: BP 178/100; PULSE 74; RESP 18; O2SAT 96
== END 2020-08-01 00:06 | disposition home or self-care (01) ==
LOC: ED 21:04
PROVIDERS: Emergency Provider Emergency Medicine; PCP Family Medicine
DX: I10 Essential (primary) hypertension (principal); I25.10 Atherosclerotic heart disease of native coronary artery without angina pectoris; E78.5 Hyperlipidemia, unspecified; Z87.891 Personal history of nicotine dependence; Z79.899 Other long term (current) drug therapy
CPT/HCPCS: 71045; 80053; 84484; 85025; 93005; 96374; 96376; 99285; A4216

== ENCOUNTER 2024-09-29 15:13 | Observation (INO) | payer OTHER, MEDICARE, SELFPAY ==
[2024-09-29] VITALS (11 sets, daily range): BP systolic 127–156; BP diastolic 75–94; PULSE 74–95; RESP 14–18; TEMP 36.1–36.8; O2SAT 94–99; BMI 25.9; BMI 25.7
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
[2024-09-29 15:44] LABS: Hematocrit 45.9 % (40-54); Hemoglobin 15.3 g/dL (13.0-16.5); Immature Granulocytes Count 0.040 X10^3/uL (0.0-0.0); Mean Corp Hgb Conc 33.3 g/dL (32-36); Mean Corpuscular Volume 94.3 fL (80-94); Mean Platelet Vol. 8.9 fl (6.2-12.0); NRBC Flagged by Analyzer 0 % (0-5); Platelet Count 269 K/mm3 (150-450); RBC Distribution Width CV 13.5 % (11.6-14.6); RBC Distribution Width SD 46.7 fl (35.1-43.9); Red Blood Count 4.87 M/mm3 (4.6-6.2); White Blood Count 9.3 K/mm3 (4.4-11.0)
--- NOTE | 2024-09-29 16:25 | RAD_ITS ---
PROCEDURE: CHEST 1 VIEW (PORTABLE) 09/29/2024 REASON FOR EXAM: PREOP CLEARANCE TECHNIQUE: Frontal view of the chest. COMPARISON: None. FINDINGS: Lungs/Pleura: Clear. No pneumothorax or sizable pleural effusion. Heart/Mediastinum: Top-normal in size. No vascular congestion. Bones/Soft tissues: Mild degenerative changes of the visualized spine. Old healed fracture deformities of the right midclavicle and multiple right posterolateral ribs. RAD/Chest 1 View (Portable) IMPRESSION: No acute cardiopulmonary disease. Reading Location: [id number]
--- NOTE | 2024-09-29 16:25 | RAD_ITS ---
PROCEDURE: LEFT ANKLE 2 VIEWS 09/29/2024 REASON FOR EXAM: INJURY/PAIN TECHNIQUE: LEFT ANKLE 2 VIEWS COMPARISON: None. FINDINGS: Acute fracture dislocation injury of the left ankle, including displaced transverse fracture of the medial malleolus. Laterally displaced/angulated fracture of the distal fibular shaft. Medial dislocation of the distal tibia with respect to the talar dome. Generalized soft tissue swelling about the ankle, with evidence of open soft tissue injury with scattered subcutaneous emphysema. No radiopaque foreign body. RAD/Ankle 2 Views IMPRESSION: Acute bimalleolar fracture-dislocation injury of the left ankle, as described. Reading Location: [id number]
[2024-09-29 16:41] LABS: Anion Gap 14 (5-15); BUN 24 mg/dL (4-19); BUN/Creat Ratio 18.8 RATIO (10-20); Calcium,Total 9.3 mg/dL (7.6-11.0); Carbon Dioxide 18.8 mmol/L (21.0-32.0); Chloride 104 mmol/L (98-108); Estimated Creatinine Clearance 47.87 ml/min (50-250); Glucose 118 mg/dL (70-99); Potassium 4.7 mmol/L (3.3-5.1)
[2024-09-29] MEDS: Cefazolin 2 GM in 0.9% Normal Saline (100mL Bag) 100 ML IV (17:04)
[2024-09-29] MEDS: 0.9% Normal Saline (1000mL) 1,000 ML 150 ML IV (17:05)
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
--- NOTE | 2024-09-29 19:16 | PCM.PRE.AN2 ---
ASA Classification* ASA Classification ASA Classification: 3 and E Assessment & Plan Anesthesia* Anesthesia Assessment Anesthesia Assessment: Discussed sedation and/or anesthesia options, risks, benefits, and alternatives with patient/parents/legal guardian/POA. Questions invited. The patient/parents/legal guardian/POA seems to understand and agrees to proceed with anesthesia plan. Reviewed the physical assessment, medical history, allergy history and patient home medications list prior to surgery/procedure/anesthetic and documented any changes. Performed airway and anesthesia risk assessments. Anesthesia Type Anesthesia Type: General History Source History Obtained from:: Patient and Chart Anesthesia Focused Assessment* Temperature: 98.2 F Pulse Rate: 89 Blood Pressure: 156/79 Respiratory Rate: 15 Pulse Ox: 97 Oxygen Delivery Method: Room Air Airway Assessment Mouth opens: >3 cm Mallampati Score: II Teeth Condition: Loose (Loose #24) and Missing (Missing one tooth) Neck Range of motion (ROM): Limited ROM (Slight decrease in extension) Labs Anesthesia Preop lab: CBC WBC 9.3 K/mm3 (4.4-11.0) 09/29/24 15:34 09/29/24 RBC 4.87 M/mm3 (4.6-6.2) 09/29/24 15:34 09/29/24 Hgb 15.3 g/dL (13.0-16.5) 09/29/24 15:34 09/29/24 Hct 45.9 % (40-54) 09/29/24 15:34 09/29/24 Plt Count 269 K/mm3 (150-450) 09/29/24 15:34 09/29/24 CHEMISTRY Potassium 4.7 mmol/L (3.3-5.1) 09/29/24 15:34 09/29/24 Sodium 137 mmol/L (133-145) 09/29/24 15:34 09/29/24 BUN 24 mg/dL (4-19) H 09/29/24 15:34 09/29/24 Creatinine 1.29 mg/dL (0.70-1.20) H 09/29/24 15:34 09/29/24 Glucose 118 mg/dL (70-99) H 09/29/24 15:34 09/29/24 COAG PT 14.0 SECONDS (11.7-14.9) 06/04/18 05:50 06/04/18 Pre-Assessment Diagnosis/Proposed Procedure Planned Operative Procedure(s): I & D Left ankle Anesthesia History 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 When Was Last Pacemaker Check QUESTION #4 FULL TEXT: You/Your Family Experience fever (hyperthermia) with Anesthesia Last Oral Intake Last Oral intake: Last Oral Intake NPO since Meds taken in AM with sips of water? 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 Female HX of Motion Sickness HX of N/V After Surgery Non-Smoker Duration of Surgery greater than 60 minutes Number of Risk Factors PONV Score Height & Weight Height & Weight: Anesthesia: Height & Weight Height 5 ft 8 in 09/29/24 15:14 Weight: 77.2 kg 09/29/24 15:14 Body Mass Index (BMI) 25.9 09/29/24 15:14 Respiratory Assessment Respiratory Assessment - heating equipment installer: Respiratory Tract Infection Hx - heating equipment installer Hx Respiratory Tract Infection No 11/02/14 07:09 STOP Sleep Apnea STOP Sleep Apnea - heating equipment installer: STOP Sleep Apnea - heating equipment installer Hx Hypertension Yes: ON METOPROLOL 06/03/18 10:33 Hx Sleep Apnea No 06/04/18 17:20 CPAP No 06/04/18 16:58 BIPAP No 06/03/18 10:33 Do you snore loudly (louder than talking or can be heard Do you often feel tired/ fatigued/ sleepy during daytime? Has anyone observed you stop breathing during sleep? STOP Results QUESTION #5 FULL TEXT : Do you snore loudly (louder than talking or can be heard through closed doors)? 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 Specify any problems Hx of Preganancy in last 3 Months Nurse Filling Out Transfusion & Questions: Date: Time: Patient unable to answer at this time (ie. confused, unrespo /Reproduction History /Reproductive History - heating equipment installer: /Reproductive Hx- heating equipment installer Hx Now Gestational Age (in weeks): EDC: Hx Hx Para Hx Section SAB Active Medications Active Medications: Current Medications Generic Name Dose Route Start Last Admin Trade Name Freq PRN Reason Stop Dose Admin Sodium Chloride 1,000 mls @ 150 mls/hr 09/29/24 15:30 09/29/24 17:05 IV 150 mls/hr .[id number] ELAINE Administration Cefazolin Sodium 2 gm/ Sodium 110 mls @ 200 mls/hr 09/29/24 18:48 Chloride IV 09/29/24 19:20 X1 [facility] Medical History (Updated 09/29/24 @ 19:[address] Maurisio Mukherjee MD) Colon cancer NSTEMI (non-ST elevated myocardial infarction) (~09/16/15) Gout Alcohol abuse CVA (cerebral vascular accident) (~2014) Hyperlipidemia Essential hypertension Colon polyps (~2001) Atherosclerosis of coronary artery of [place] heart without angina pectoris Raynauds disease Acute kidney injury Upper GI bleeding Home Medications ?Medication ?Instructions ?Recorded ?Last Taken ?Type atorvastatin 40 mg tablet 40 mg PO QHS CHOLESTEROL 06/03/18 09/29/24 History losartan 50 mg tablet 100 mg PO DAILY BLOOD PRESSURE 06/03/18 09/29/24 History sildenafil 25 mg tablet (Viagra) 25 mg PO DAILY PRN ERECTILE 06/03/18 Unknown History amlodipine 10 mg tablet 10 mg PO DAILY 09/29/24 09/29/24 History aspirin 81 mg tablet,delayed 81 mg PO DAILY 09/29/24 09/29/24 History release (Adult Aspirin Regimen) dapagliflozin propanediol 5 mg 5 mg PO DAILY 09/29/24 09/29/24 History tablet (Farxiga) ezetimibe 10 mg tablet 10 mg PO DAILY 09/29/24 09/29/24 History hydrochlorothiazide 12.5 mg capsule 12.5 mg PO QODAY 09/29/24 09/29/24 History pantoprazole 40 mg tablet,delayed 40 mg PO DAILY 09/29/24 09/29/24 History release Allergy/AdvReac Type Severity Reaction Status Date / Time No Known Allergies Allergy Verified 09/29/24 17:53 Family History Father , Age 67 Cancer Mother CVA (cerebral vascular accident) Surgical History History of benign colon tumor Presence of stent in coronary artery Social History Smoking Status: Former smoker how long ago did patient quit smokin alcohol intake: current alcohol intake frequency: 3 or more drinks per day Alcohol type: beer substance use type: does not use caffeine: Yes Type: coffee Review of Systems (Anesthesia) ROS Narrative System reviewed and no additional complaints, except as documented.
[2024-09-29] MEDS: Lactated Ringers 1,000 ML 1000 ML IV (19:26)
--- NOTE | 2024-09-29 19:30 | RAD_ITS ---
PROCEDURE: ANKLE 2 VIEWS 09/29/2024 REASON FOR EXAM: FX TECHNIQUE: Fluoro was provided COMPARISON: None FINDINGS: Fluoro time = 42.3 seconds, 10 images, 1.13 mGy RAD/Ankle 2 Views IMPRESSION: Fluoro was provided. Reading Location: [facility]
[2024-09-29] MEDS: Cefazolin 1 GM/5 ML Vial 2 GM IV (19:33)
[2024-09-29] MEDS: Lidocaine 1% (5 ml sdv) 5 ML Vial 3 ML IV (19:41)
--- NOTE | 2024-09-29 21:34 | PCM.OPRPT ---
Operative Report (Standard) Operative Information Date of Procedure: 09/29/24 Pre-Operative Diagnosis: Grade 2 open left bimalleolar ankle fracture Post-Operative Diagnosis: Grade 2 open left bimalleolar ankle fracture Surgery/Procedure Performed: 1. Open reduction subluxation left bimalleolar ankle fracture 2. Open reduction internal fixation left ankle syndesmosis 3. 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 Foundry Superintendant: Livan Newby Tasks completed by assistant men's lacrosse coach: Opening & closing, Removing tissue, Implanting device, Retracting and Other (Fracture reduction) Additional print shop assistant?: No Type of Anesthesia: General RN Documented Start/Stop Times: Operation Date: 09/29/24 19:20 Case Time Into Pre-Op 09/29/24 18:02 Anesthesia Start 09/29/24 19:26 Into Room 09/29/24 19:26 Procedure Start 09/29/24 20:03 Procedure Start Time: 20:03 Procedure Stop Time: 21:44 Select all DRAINS/GRAFTS/IMPLANTS that apply: Prosthetic device Prosthetic device details: [employer] one third tubular plate. [employer] syndesmotic fixation cable. [employer] cannulated screws medially Special Medications: Ancef Estimated Blood Loss: 30 mL Fluids Replaced: 1000 mL crystalloid Specimen collected: No Description of surgery: On the day of the procedure patient was seen and examined in the preoperative area. Patient's left lower extremity was marked. Patient was brought back to the operating room after fully consenting them and discussing medical comorbidities. Anesthesia reviewed the chart and agreed to proceed in an emergent fashion. After patient was transferred to the table anesthesia assumed controlled C-spine and airway and remained controlled throughout the remainder of the procedure. After patient was appropriately anesthetized all bony problems identified well-padded. Bump was placed underneath the left hip. Blankets underneath the left leg. Tourniquet was placed on the left upper thigh. Left lower extremity was then clipped of any residual hair that could be removed. Betadine prep was used and the left lower extremity was prepped while the surgeon scrubbed. After reentering the room the left lower extremity was draped in the standard orthopedic fashion. Timeout was called everyone agreed upon the side, the site, the procedure to be performed, patient's identity and antibiotics given. Incision was marked out laterally over the fibula medially the extension of the wound was marked out to expose the medial mall lateral fragment. Esmarch bandage was used to exsanguinate the extremity and tourniquet was placed up to 250 mmHg. We started medially and extend our incision down over the medial malleolus. We are able to expose the joint. There was dusky skin which was removed about 2 mm of skin both proximally and distally on the original wound along the border until we got to the point where we extended our incision. We debrided subcutaneous fatty tissue fascia and bone. We were able to identify the joint. There was a large area of cartilage removed from the joint as well as bony fragments removed in the joint. Once we did this in the wound was adequately debrided we carefully irrigated out the wound with 3 L of normal saline under low-pressure lavage. After debriding medially we carefully directed our attention laterally and made her lateral based incision. Incision was made through skin with sharp dissection and blunt dissection was taken down to the bony fragments. There is significant comminution. The only intact cortex was the medial cortex we carefully aligned the medial cortex and fix the bone using a plate to help keep it distracted. There was significant comminution anterior lateral and posterior. Once we had [id number] reduction over the medial cortex 1 screw was placed proximally and 1 screws placed distally holding the fracture reduction in her 8 hole plate. Live x-rays used to verify appropriate fracture reduction and plate placement. Once you are happy with this 2 additional screws were placed proximally into place distally. We directed our attention back to the medial side of the knee at this time and carefully reduced the medial malleolar fragment. Once this fragment was reduced using a pointed reduction clamp slight x-rays used to verify the reduction and the joint line remained reduced. At this time 2 pins were placed and measured in the medial malleolus. We then breached the cortex and placed the anterior and posterior screws with the fracture remained reduced. Once the screws were placed clamp was removed and the fracture remained stable. We then directed our attention towards the syndesmosis. The syndesmosis was not intact at this time based both on fracture pattern intraoperative testing. Syndesmosis was reduced with a clamp and the cable fixation from [employer] was used. We removed the most proximal screw in the distal portion of the plate as it was the appropriate position for the cable. The cable was placed using the technique from [employer] plates and the initial screw in the tibial cancellous bone and tightening down the cinch on the plate. Once this was completed 5 x-rays to verify fracture reduction and joint alignment which were all satisfactory. At this time the syndesmosis was tested and remained stable. We then directed our attention back laterally. There was significant comminution of the lateral anterior and posterior cortex based on this we elected to place some bone graft. Cancellous bone graft was packed into the fracture site after irrigating out the wound. Fascia was closed with 0 Vicryl skin was closed with 2-0 Vicryl and final skin closure was done with 4-0 nylon's. On the medial side we carefully used 2-0 nylon's to close the subcutaneous layer and used nylon to close superficial layer. Skin came together with minimal extra tension. Xeroform dressings were placed. Sterile dressing were placed. Compressive dressings were placed. Tourniquet was let down. Posterior splint was placed which was well-padded. Patient was awakened by anesthesia transferred PACU for recovery. Postop plan: 1. Weightbearing status: Nonweightbearing for total of 6 weeks with progression of weightbearing after that based on radiographic findings. 2. DVT prophylaxis: Aspirin 81 mg twice daily for 4 weeks 3. Discharge planning patient does live alone will have a meet with social work tomorrow for disposition. 4. Open fracture patient will be placed on 24 hours antibiotics. Surgical Findings: Stable radius fracture. Unstable syndesmosis. Wound was 7 cm x 3 cm. Complications Complications: No Admit VTE Documentation VTE Present on Admission: No VTE Mechan Device Prophylaxis: SCD's VTE Pharm Prophylaxis ordered?: Yes
[2024-09-29] MEDS: fentaNYL 100 MCG/2 ML Ampul IV (21:59)
--- NOTE | 2024-09-29 22:00 | PCM.POST.ANE ---
Anesthesia: Postop Eval I Current Vital Signs Temperature: 97 F Pulse Rate: 78 Blood Pressure: 138/94 Respiratory Rate: 16 Pulse Ox: 96 Oxygen Delivery Method: Room Air Assessment Airway patent: Yes Spontaneous unlabored respirations: Yes Mental status: Awake and Calm nausea: No Vomiting: No Anesthesia Complication: No Fluid Hydration Crystalloid volume administer (ml): 1,000 Total IV fluid infused: 1,000 Progress Note Anesthesia document: Postop Eval 1 completed: Yes
--- NOTE | 2024-09-29 22:10 | RAD_ITS ---
PROCEDURE: ANKLE 2 VIEWS 09/29/2024 REASON FOR EXAM: FRX TECHNIQUE: ANKLE 2 VIEWS Laterality: Left FINDINGS: The patient is status post open reduction and internal fixation of medial and lateral malleolar fractures in adequate alignment. There has been interval taoism of the stability of the ankle joint. The alignment is in good anatomical position. A posterior cast has been placed. Normal visualized talus. Normal visualized calcaneus. The visualized subtalar, talonavicular, calcaneocuboid and tarsal articulations are normal. RAD/Ankle 2 Views IMPRESSION: Status post open reduction and internal fixation of bimalleolar fractures in ad equate alignment. Reading Location: [facility]
--- NOTE | 2024-09-29 22:51 | PCM.POSTANE2 ---
Anesthesia Postop Eval I Sum Postop Eval Completion status Anesthesia document: Postop Eval 1 completed: Yes Anesthesia Postop Eval I Summary Anesthesia Postop Eval I Summary: Anesthesia Postop Eval I: Assessment Summary Airway patent Yes 09/29/24 22:04 Spontaneous unlabored Yes 09/29/24 22:04 respirations Mental status Awake,Calm 09/29/24 22:04 nausea No 09/29/24 22:04 Vomiting No 09/29/24 22:04 Anesthesia Postop Eval I: Fluid Summary Crystalloid volume administer 1,000 09/29/24 22:04 (ml) Colloids volume administered ( ml) Blood Product volume administered (ml) Total IV fluid infused 1,000 09/29/24 22:04 Anesthesia Postop Eval I: Summary Notes Anesthesia Complication No 09/29/24 22:04 Anesthesia Complication Comment: Post-operative progress note Anesthesia: Postop Eval II Evaluation Mental status: Awake and Calm Pain Level: 4 nausea: No Vomiting: No Complications Anesthesia Complication: No
[2024-09-29] MEDS: Lactated Ringers 1,000 ML 100 ML IV (23:09)
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
--- NOTE | 2024-09-29 23:51 | CPS ---
smi placed in room -pt not arrived yet.
--- OUTSIDE RECORDS SUMMARY | 2024-09-29 23:52 | XMS RPT_ITS | CCD ---
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 circulatory disease (10 sources) History of cerebrovascular accident 10-05-2021 Episodic Other circulatory disease (1 source) History of transient ischemic attack; Translations: [Personal history of transient ischemic attack (TIA), and cerebral infarction without residual deficits] Episodic Other eye disorders (8 sources) Eye symptom 05-29-2022 Episodic Other inflammatory condition of skin (8 sources) 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 Other screening for suspected conditions (not mental disorders or infectious disease) (12 sources) Raised prostate specific antigen; Translations: [Elevated prostate specific antigen [PSA]] Onset: 05-29-2023 10-19-2021 Episodic Residual codes; unclassified (11 sources) Insomnia 12-10-2018 Episodic Residual codes; unclassified (8 sources) Difficulty sleeping 07-11-2022 Episodic Residual codes; unclassified (8 sources) Impaired exercise tolerance 05-29-2022 Episodic Screening and history of mental health and substance abuse codes (9 sources) Tobacco use and exposure - finding 02-08-2022 Chronic Unclassified (10 sources) Long-term current use of proton pump inhibitor therapy 10-05-2021 Results Test Name Value Interpretation Reference Range Facility Absolute lymphocyte countOrd ered By: Andrew Cruz on 09-29-2024 Lymphocytes Auto (Unsp spec) [#/Vol] 1.07 10*3/uL 0.83-4.[address] [facility] Absolute neutrophil countOrd ered By: Andrew Cruz on 09-29-2024 Neutrophils (Bld) [#/Vol] 7.2 10*3/uL 2.0-7.[address] [facility] Anion gap in Serum or Plasma Ordered By: Andrew Cruz on 09-29-2024 Anion gap [Moles/Vol] 14 mmol/L 5-15 [facility] Automated lymphocyte count a s percentage of total leukocytesOrdered By: Andrew Cruz on 09-29-2024 Lymphocytes/100 WBC Auto (Unsp spec) 11.5 % Low 19-[address] [facility] BUN/creatinine ratioOrdered By: Andrew Cruz on 09-29-2024 Urea nitrogen/Creatinine [Mass ratio] 18.8 mg/mg 10-[address] [facility] Basophil percentageOrdered B y: Andrew Cruz on 09-29-2024 Basophils/100 WBC (Bld) 0.5 % 0-1 [facility] Carbon dioxide, total [Moles /volume] in Central venous bloodOrdered By: Andrew Cruz on 09-29-2024 CO2 [Moles/Vol] 18.8 mmol/L Low 21.0-32.[address] [facility] Chloride assayOrdered By: [facility] Cruz on 09-29-2024 Chloride [Moles/Vol] 104 mmol/L 98-108 [facility] Eosinophil percentageOrdered By: Andrew Cruz on 09-29-2024 Eosinophils/100 WBC (Bld) 1.1 % 0-[address] [facility] Erythrocyte distribution wid th ratioOrdered By: Andrew Cruz on 09-29-2024 Erythrocyte distribution width (RBC) [Ratio] 13.5 % 11.6-14.[address] [facility] Erythrocyte distribution wid th standard deviationOrdered By: Andrew Cruz on 09-29-2024 Erythrocyte distribution width (RBC) [Ratio] 46.7 fl High 35.1-43.[address] [facility] Glomerular filtration rate ( GFR) estimation/1.73 sq m using serum, plasma, or whole bOrdered By: Andrew Cruz on 09-29-2024 GFR/1.73 sq M.predicted among non-blacks MDRD (S/P/Bld) [Vol rate/Area] 58 mL/min/{1.73_m2} Low >[address] [facility] Comment on above: mL/min/1.73m2 CKD-EP I Creatinine Equation (2020) Hematocrit Auto (Bld) [Volum e fraction]Ordered By: Andrew Cruz on 09-29-2024 Hematocrit (Bld) [Volume fraction] 45.9 % 40-[address] [facility] Hemoglobin measurementOrdere d By: Andrew Cruz on 09-29-2024 Hemoglobin (Bld) [Mass/Vol] 15.3 g/dL 13.0-16.[address] [facility] Immature granulocytes/100 WB C Auto (Bld)Ordered By: Andrew Cruz on 09-29-2024 Immature granulocytes/100 WBC (Bld) 0.400 % 0.0-0.[address] [facility] Comment on above: IG% - Immature Granu locytes (promyelocytes, myelocytes and metamyelocytes) > 1% indicates that a LEFT SHIFT is Present. MCV (mean corpuscular volume ) determinationOrdered By: Andrew Baxtero on 09-29-2024 MCV (RBC) [Entitic vol] 94.3 fL High 80-94 [facility] Mean corpuscular hemoglobin (MCH) determinationOrdered By: Andrewrehan Baxtero on 09-29-2024 MCH (RBC) [Entitic mass] 31.4 pg 27.0-32.[address] [facility] Mean corpuscular hemoglobin concentration (MCHC) determinationOrdered By: Andrewrehan Baxtero on 09-29-2024 MCHC (RBC) [Mass/Vol] 33.3 g/dL 32-36 [facility] Mean platelet volume determi nationOrdered By: Andrewrehan Baxtero on 09-29-2024 Platelet mean volume (Bld) [Entitic vol] 8.9 fL 6.2-12.[address] [facility] Monocyte percentageOrdered B y: Andrewrehan Baxtero on 09-29-2024 Monocytes/100 WBC (Bld) 9.8 % 0-10 [facility] Neutrophil percentageOrdered By: [facility] on 09-29-2024 Neutrophils/100 WBC (Bld) 76.7 % High 47-[address] [facility] Nucleated red blood cell per centageOrdered By: Andrewrehan Baxtero on 09-29-2024 Nucleated RBC/100 WBC (Bld) [Ratio] 0 % 0-[address] [facility] Platelet countOrdered By: rehan Baxtero on 09-29-2024 Platelets (Bld) [#/Vol] 269 10*3/uL 150-[address] [facility] Potassium measurement (mass/ volume)Or[facility] Potassium (Unsp spec) [Mass/Vol] 4.7 mmol/L 3.3-5.[address] [facility] Comment on above: Hemolysis present, R esults could be affected. RBC Auto (Bld) [#/Vol]Ordere d By: Andrewrehan Baxtero on 09-29-2024 RBC (Bld) [#/Vol] 4.87 10*6/uL 4.6-6.[address] [facility] Serum creatinine measurement (mass/volume)Ordered By: Andrew Cruz on 09-29-2024 Creatinine [Mass/Vol] 1.29 mg/dL High 0.70-1.20 [facility] Serum glucose measurement (m ass/volume)Ordered By: Andrew Cruz on 09-29-2024 Glucose [Mass/Vol] 118 mg/dL High 70-[address] [facility] Serum or plasma calcium foster urement (mass/volume)Ordered By: Andrew Cruz on 09-29-2024 Calcium [Mass/Vol] 9.3 mg/dL 7.6-11.[address] [facility] Serum or plasma urea nitroge n measurement (mass/volume)Ordered By: Andrew Cruz on 09-29-2024 Urea nitrogen [Mass/Vol] 24 mg/dL High 4-[address] [facility] Sodium levelOrdered By: Andrewrehan Cruz on 09-29-2024 Sodium [Moles/Vol] 137 mmol/L 133-[address] [facility] White blood cell (WBC) count Ordered By: Andrew Cruz on 09-29-2024 WBC (Bld) [#/Vol] 9.3 10*3/uL 4.4-11.[address] [facility] .Auto Diffon 07-08-2024 Basophil, Absolute 0.1 10 3/mcL Normal 0.0-0.3 [facility] Comment on above: Performed By: #### L IPID, BMP, URIC, GFR, A1C #### [address] [address] Basophils/100 WBC (Bld) 0.7 % Normal 0.0-2.5 [facility] Comment on above: Performed By: #### L IPID, BMP, URIC, GFR, A1C #### [address] [address] Eosinophil, Absolute 0.1 10 3/mcL Normal 0.0-0.7 [facility] Comment on above: Performed By: #### L IPID, BMP, URIC, GFR, A1C #### [address] [place] [place], [place] [address] Eosinophils/100 WBC (Bld) 0.8 % Normal 0.0-6.0 [facility] Comment on above: Performed By: #### L IPID, BMP, URIC, GFR, A1C #### [address] [address] Lymphocyte, Absolute 0.8 10 3/mcL Low 0.9-4.3 [facility] Comment on above: Performed By: #### L IPID, BMP, URIC, GFR, A1C #### [address] [address] Lymphocytes/100 WBC (Bld) 10.1 % Low 20.0-40.0 [facility] Comment on above: Performed By: #### L IPID, BMP, URIC, GFR, A1C #### [address] [address] Monocyte, Absolute 0.6 10 3/mcL Normal 0.1-1.4 [facility] Comment on above: Performed By: #### L IPID, BMP, URIC, GFR, A1C #### [address] [address] Monocytes/100 WBC (Bld) 8.3 % Normal 2.0-13.0 [facility] Comment on above: Performed By: #### L IPID, BMP, URIC, GFR, A1C #### [address] [address] Neutrophils/100 WBC (Bld) 80.1 % High 50.0-75.0 [facility] Comment on above: Performed By: #### L IPID, BMP, URIC, GFR, A1C #### [address] [address] .GFRon 07-08-2024 Estimated Glomerular Filtration Rate 56 ml/min/1.73sqm Normal [facility] Comment on above: Result Comment: Stages of Chronic Kidney Disease (CKD) Stage Description eGFR(ml/min/1.73 sq.m.) CKD 1 Normal kidney function or >=90 normal kindney function with possible kidney damage (ex. Proteinuria) CKD 2 Kidney damage with mild loss 60-89 of kidney function CKD 3a Mild to moderate loss of kidney 45-59 function CKD 3b Moderate to severe loss of 30-44 of kindey function CKD 4 Severe loss of kidney function 15-29 CKD 5 Kidney failure <15 Note: (go live 2024) the eGFR calculation was updated to the 2020 CKD-EPI creatinine equation without a race factor to calculate the eGFR results. Performed By: #### L IPID, BMP, URIC, GFR, A1C #### [address] [address] .MDWon 07-08-2024 Monocyte Distribution Width 15.34 Normal 0.00-20.00 [facility] Comment on above: Result Comment: For ED adult patients suspected of sepsis, MDW<=20.0 does not rule out sepsis or risk of sepsis Performed By: #### L IPID, BMP, URIC, GFR, A1C #### [address] [address] .NEUABSon 07-08-2024 Neutrophil, Absolute 6.0 10 3/mcL Normal 2.3-8.1 [facility] Comment on above: Performed By: #### L IPID, BMP, URIC, GFR, A1C #### [address] [address] BMPon 07-08-2024 BUN/Creatinine Ratio 28 ratio High 09-07 [facility] Comment on above: Performed By: #### L IPID, BMP, URIC, GFR, A1C #### [address] [address] Calcium [Mass/Vol] 9.2 mg/dL Normal 8.4-10.2 [facility] Comment on above: Performed By: #### L IPID, BMP, URIC, GFR, A1C #### [address] [address] Chloride [Moles/Vol] 104 mmol/L Normal 98-107 [facility] Comment on above: Performed By: #### L IPID, BMP, URIC, GFR, A1C #### [address] [address] CO2 [Moles/Vol] 23 mmol/L Normal 23-31 [facility] Comment on above: Performed By: #### L IPID, BMP, URIC, GFR, A1C #### [address] [address] Creatinine [Mass/Vol] 1.32 mg/dL High 0.67-1.17 [facility] Comment on above: Performed By: #### L IPID, BMP, URIC, GFR, A1C #### [address] [address] Electrolyte Balance 10.0 mEq/L Normal 4.0-15.0 [facility] Comment on above: Performed By: #### L IPID, BMP, URIC, GFR, A1C #### [address] [address] Glucose [Mass/Vol] 126 mg/dL High 83-110 [facility] Comment on above: Performed By: #### L IPID, BMP, URIC, GFR, A1C #### [address] [address] Potassium [Moles/Vol] 4.4 mmol/L Normal 3.5-5.1 [facility] Comment on above: Performed By: #### L IPID, BMP, URIC, GFR, A1C #### [address] [address] Sodium [Moles/Vol] 137 mmol/L Normal 136-145 [facility] Comment on above: Performed By: #### L IPID, BMP, URIC, GFR, A1C #### [address] [address] Urea nitrogen [Mass/Vol] 37 mg/dL High 7-18 [facility] Comment on above: Performed By: #### L IPID, BMP, URIC, GFR, A1C #### [address] [address] CBCon 07-08-2024 Erythrocyte distribution width (RBC) [Ratio] 14.6 % Normal 11.5-15.5 [facility] Comment on above: Performed By: #### L IPID, BMP, URIC, GFR, A1C #### [address] [address] Hematocrit (Bld) [Volume fraction] 44.0 % Normal 40.0-52.0 [facility] Comment on above: Performed By: #### L IPID, BMP, URIC, GFR, A1C #### [address] [address] Hgb 14.7 G/dL Normal 13.0-17.5 [facility] Comment on above: Performed By: #### L IPID, BMP, URIC, GFR, A1C #### [address] [address] MCH (RBC) [Entitic mass] 31.0 pg Normal 27.0-33.0 [facility] Comment on above: Performed By: #### L IPID, BMP, URIC, GFR, A1C #### [place] [address] MCHC 33.4 G/dL Normal 32.0-36.0 [facility] Comment on above: Performed By: #### L IPID, BMP, URIC, GFR, A1C #### [place] [id number] MCV (RBC) [Entitic vol] 92.9 fL Normal 81.0-100.0 [facility] Comment on above: Performed By: #### L IPID, BMP, URIC, GFR, A1C #### [address] [address] Platelet 268 10 3/mcL Normal 150-450 [facility] Comment on above: Performed By: #### L IPID, BMP, URIC, GFR, A1C #### [address] [address] Platelet mean volume (Bld) [Entitic vol] 6.6 fL Normal 6.4-10.5 [facility] Comment on above: Performed By: #### L IPID, BMP, URIC, GFR, A1C #### [address] [address] RBC 4.74 10 6/mcL Normal 4.50-6.00 [facility] Comment on above: Performed By: #### L IPID, BMP, URIC, GFR, A1C #### [facility] [address] [place], [place] [address] WBC 7.5 10 3/mcL Normal 4.5-10.8 [facility] Comment on above: Performed By: #### L IPID, BMP, URIC, GFR, A1C #### [facility] [address] [place], [place] [address] CT HEAD OR BRAIN W/O CONTRAS Ton 07-08-2024 CT HEAD OR BRAIN W/O CONTRAST ORIGINAL EXAMINATION: CT HEAD TECHNIQUE: Axial CT images from skull base to vertex without IV contrast. This exam was performed according to our departmental dose optimization program, and includes the following measures where applicable: automated exposure control, adjustment of the mAs and/or kVp according to patient size and/or exam, and an iterative reconstruction algorithm. COMPARISON: None HISTORY: ORDERING SYSTEM PROVIDED HISTORY: Reason for Exam: lightheaded FINDINGS: Parenchyma: No acute intracranial hemorrhage, midline shift, mass effect or acute ischemic infarct is demonstrated. The back-white matter junctions are preserved. No space occupying intra-axial masses or extra-axial fluid collections are seen. A remote transcortical infarct of the right inferior cerebellum is noted. Remote infarcts also involve the left basal ganglia. Mild parenchymal volume loss is noted. Scattered areas of decreased attenuation are identified in the subcortical, periventricular, and deep white matter statistically reflect mild chronic microvascular white matter ischemic disease. Ventricles: Enlarged 4th ventricle secondary to adjacent encephalomalacia. The rest of the ventricles are proportionally prominent to the sulci on the basis of parenchymal volume loss. Vessels: Atherosclerotic calcifications of the bilateral ICA siphons. Orbits: Unremarkable. Calvarium: Unremarkable. Paranasal sinuses: Completely opacified right maxillary sinus. Mastoid sinuses: Clear. IMPRESSION: 1. No acute intracranial pathology. 2. 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 3. Remote infarcts of the left basal ganglia. 4. Mild parenchymal volume loss and chronic microvascular white matter ischemic disease. 5. Completely opacified right maxillary sinus. Interpreted by: Luz Marina Pinzon MD Preliminary Report By: Luz Marina Pinzon MD Electronically signed By Luz Marina Pinzon MD Dictated Date: 07/08/2024 1:19:30 PM Prelim Date: 07/08/2024 1:22:00 PM Sign Date: 07/08/2024 1:22:00 PM Ordering Provider: DEREK Faustin [facility] By: SYSTEM SYSTEM on 07-08-2024 Basophils (Bld) [#/Vol] 0.1 103/mcL Normal 0.0 - 0.3 10^3/mcL AO Workflow SS Basophils/100 WBC (Bld) 0.7 % Normal 0.0 - 2.5 % AO Workflow SS Calcium [Mass/Vol] 9.2 mg/dL Normal 8.4 - 10. 2 mg/dL AO ADM SS Chloride [Moles/Vol] 104 mmol/L Normal 98 - 10 7 mmol/L AO ADM SS CO2 [Moles/Vol] 23 mmol/L Normal 23 - 31 mmol/L AO ADM SS Creatinine [Mass/Vol] 1.32 mg/dL High 0.67 - 1.17 mg/dL AO ADM SS Electrolyte Balance 10.0 mEq/L Normal 4.0 - 15 .0 mEq/L AO ADM SS Eosinophil, Absolute 0.1 103/mcL Normal 0.0 - 0 .7 10^3/mcL AO Workflow SS Eosinophils/100 WBC (Bld) 0.8 % Normal 0.0 - 6.0 % AO Workflow SS Erythrocyte distribution width (RBC) [Ratio] 14.6 % Normal 11.5 - 15.5 % AO Workflow SS Estimated Glomerular Filtration Rate 56 ml/min/1.73sqm Invalid Interpretation Code AO Chemistry S Comment on above: Interpretive Data: Stages of Chronic Kidney Disease (CKD) Stage Description eGFR(ml/min/1.73 sq.m.) CKD 1 Normal kidney function or >=90 normal kindney function with possible kidney damage (ex. Proteinuria) CKD 2 Kidney damage with mild loss 60-89 of kidney function CKD 3a Mild to moderate loss of kidney 45-59 function CKD 3b Moderate to severe loss of 30-44 of kindey function CKD 4 Severe loss of kidney function 15-29 CKD 5 Kidney failure <15 Note: (go live 2024) the eGFR calculation was updated to the 2020 CKD-EPI creatinine equation without a race factor to calculate the eGFR results. Glucose [Mass/Vol] 126 mg/dL High 83 - 110 mg/dL AO ADM SS Hematocrit (Bld) [Volume fraction] 44.0 % Normal 40.0 - 52.0 % AO Workflow SS Hemoglobin (Bld) [Mass/Vol] 14.7 G/dL Normal 13.0 - 17.5 G/dL AO Workflow SS Lymphocytes (Bld) [#/Vol] 0.8 103/mcL Low 0.9 - 4.3 10^3/mcL AO Workflow SS Lymphocytes/100 WBC (Bld) 10.1 % Low 20.0 - 40.0 % AO Workflow SS Magnesium [Mass/Vol] 2.1 mg/dL Normal 1.8 - 2 .4 mg/dL AO ADM SS MCH (RBC) [Entitic mass] 31.0 pg Normal 27.0 - 33.0 pg AO Workflow SS MCHC 33.4 G/dL Normal 32.0 - 36.0 G/dL AO Workflow SS MCV (RBC) [Entitic vol] 92.9 fL Normal 81.0 - 100.0 fL AO Workflow SS Monocyte distribution width Auto (Bld) [Entitic vol] 15.34 1 Normal 0.00 - 20.00 AO Workflow SS Comment on above: Result Comment: For ED adult patients suspected of sepsis, MDW<=20.0 does not rule out sepsis or risk of sepsis Monocytes (Bld) [#/Vol] 0.6 103/mcL Normal 0.1 - 1.4 10^3/mcL AO Workflow SS Monocytes/100 WBC (Bld) 8.3 % Normal 2.0 - 13.0 % AO Workflow SS Natriuretic peptide.B prohormone N-Terminal [Mass/Vol] 149 pg/mL Normal 0 - 450 pg/mL AO ADM SS Comment on above: Interpretive Data: N T-proBNP results of less than 300 pg/mL effectively rules out acute congestive heart failure with 99% negative predictive value. Neutrophils (Bld) [#/Vol] 6.0 103/mcL Normal 2.3 - 8.1 10^3/mcL AO Workflow SS Neutrophils/100 WBC (Bld) 80.1 % High 50.0 - 75.0 % AO Workflow SS Platelet mean volume (Bld) [Entitic vol] 6.6 fL Normal 6.4 - 10.5 fL AO Workflow SS Platelets (Bld) [#/Vol] 268 103/mcL Normal 150 - 450 10^3/mcL AO Workflow SS Potassium [Moles/Vol] 4.4 mmol/L Normal 3.5 - 5.1 mmol/L AO ADM SS RBC (Bld) [#/Vol] 4.74 106/mcL Normal 4.50 - 6.0 0 10^6/mcL AO Workflow SS Sodium [Moles/Vol] 137 mmol/L Normal 136 - 145 mmol/L AO ADM SS Troponin I.cardiac DL <= 0.01 ng/mL [Mass/Vol] 6 ng/L Normal 0 - 76 ng/L AO ADM SS Comment on above: Interpretive Data: H igh Sensitive Troponin I Reference Ranges: Female: 0-51 ng/L Male: 0-76 ng/L Testing performed on [employer] using a homogeneous sandwich chemiluminescent immunoassay based on [employer] technology. Urea nitrogen [Mass/Vol] 37 mg/dL High 7 - 18 mg/dL AO ADM SS Urea nitrogen/Creatinine [Mass ratio] 28 ratio High 7 - 27 ratio AO ADM SS WBC (Bld) [#/Vol] 7.5 103/mcL Normal 4.5 - 10.8 10^3/mcL AO Workflow SS MGon 07-08-2024 Magnesium [Mass/Vol] 2.1 mg/dL Normal 1.8-2.4 [facility] Comment on above: Performed By: #### M G #### [address] [address] [facility] Natriuretic peptide B (Bld) [Mass/Vol] 149 pg/mL Normal 0-450 [facility] Comment on above: Result Comment: NT-p roBNP results of less than 300 pg/mL effectively rules out acute congestive heart failure with 99% negative predictive value. Performed By: #### L IPID, BMP, URIC, GFR, A1C #### [address] [place], [place] [address] TROPHSon 07-08-2024 High Sensitivity Troponin I 6 ng/L Normal 0-76 [facility] Comment on above: Result Comment: High Sensitive Troponin I Reference Ranges: Female: 0-51 ng/L Male: 0-76 ng/L Testing performed on [employer] using a homogeneous sandwich chemiluminescent immunoassay based on [employer] technology. Performed By: #### L IPID, BMP, URIC, GFR, A1C #### [address] [place], [place] [address] XR CHEST 1 VIEWon 07-08-2024 XR CHEST 1 VIEW ORIGINAL EXAMINATION: ONE XRAY VIEW OF THE CHEST 07/08/2024 1:16 pm COMPARISON: 06/10/2015 HISTORY: ORDERING SYSTEM PROVIDED HISTORY: Reason for Exam: chest pain FINDINGS: Cardiomediastinal silhouette is within normal limits. There is no overt edema. No focal consolidation. No pleural effusion or pneumothorax. Multiple healed right-sided rib fracture deformities. Healed right mid clavicle fracture deformity. IMPRESSION: No acute cardiopulmonary process. Interpreted by: Grabiel Jaramillo Preliminary Report By: Grabiel Jaramillo Electronically signed By Grabiel Jaramillo Dictated Date: 07/08/2024 1:26:56 PM Prelim Date: 07/08/2024 1:35:35 PM Sign Date: 07/08/2024 1:35:35 PM Ordering Provider: DEREK QUINTERO Normal [facility] APOBon 05-15-2024 Apolipoprotein B [Mass/Vol] 109 mg/dL High <90 [facility] Comment on above: Result Comment: Thalia bañuelos < 90 Borderline High 90 - 99 High 100 - 130 Very High >130 ASCVD RISK THERAPEUTIC TARGET CATEGORY APO B (mg/dL) Very High Risk <80 (if extreme risk <70) High Risk <90 Moderate Risk <90 Performed At: [address] [id number] Raman Wallis MD Ph:[phone] Performed By: #### L IPID, BMP, URIC, GFR, A1C #### [address] [place] [place], [place] [address] A1Con 05-13-2024 Glucose [Mass/Vol] 120 mg/dL [facility] Comment on above: Result Comment: Erika mated Average Glucose calculated by equation ((28.7xA1C)-46.7) Estimated average glucose (eAG) is a calculated value from Hemoglobin A1C and is office services representative of the average blood glucose level in the last 2-3 month period. Normal range: less than 114 mg/dL Performed By: #### L IPID, BMP, URIC, GFR, A1C #### [place] [address] HbA1c (Bld) [Mass fraction] 5.8 % Normal 4.3-6.4 [facility] Comment on above: Performed By: #### L IPID, BMP, URIC, GFR, A1C #### [place] [address] .Auto Diffon 05-12-2024 Basophil, Absolute 0.1 10 3/mcL Normal 0.0-0.2 [facility] Comment on above: Performed By: #### V IDH, ANEU, URIC, CMP, [id number], ADIFF, CBC, GFR, LIPID, PSA, A1C, TSHR #### [place] [address] #### B12 #### [address] [address] Basophils/100 WBC (Bld) 0.6 % Normal 0.0-2.5 [facility] Comment on above: Performed By: #### V IDH, ANEU, URIC, CMP, [id number], ADIFF, CBC, GFR, LIPID, PSA, A1C, TSHR #### [place] [address] #### B12 #### [address] [address] Eosinophil, Absolute 0.1 10 3/mcL Normal 0.0-0.7 [facility] Comment on above: Performed By: #### V IDH, ANEU, URIC, CMP, [id number], ADIFF, CBC, GFR, LIPID, PSA, A1C, TSHR #### [place] [address] #### B12 #### [address] [address] Eosinophils/100 WBC (Bld) 1.5 % Normal 0.0-7.0 [facility] Comment on above: Performed By: #### V IDH, ANEU, URIC, CMP, [id number], ADIFF, CBC, GFR, LIPID, PSA, A1C, TSHR #### [address] [address] #### B12 #### [address] [address] Lymphocyte, Absolute 1.2 10 3/mcL Normal 0.9-4.3 [facility] Comment on above: Performed By: #### V IDH, ANEU, URIC, CMP, [id number], ADIFF, CBC, GFR, LIPID, PSA, A1C, TSHR #### [address] [address] #### B12 #### [address] [address] Lymphocytes/100 WBC (Bld) 13.6 % Low 20.0-40.0 [facility] Comment on above: Performed By: #### V IDH, ANEU, URIC, CMP, [id number], ADIFF, CBC, GFR, LIPID, PSA, A1C, TSHR #### [address] [address] #### B12 #### [address] [address] Monocyte, Absolute 0.7 10 3/mcL Normal 0.1-1.4 [facility] Comment on above: Performed By: #### V IDH, ANEU, URIC, CMP, [id number], ADIFF, CBC, GFR, LIPID, PSA, A1C, TSHR #### [address] [address] #### B12 #### [address] [address] Monocytes/100 WBC (Bld) 8.0 % Normal 2.0-13.0 [facility] Comment on above: Performed By: #### V IDH, ANEU, URIC, CMP, [id number], ADIFF, CBC, GFR, LIPID, PSA, A1C, TSHR #### [address] [address] #### B12 #### [address] [address] Neutrophils/100 WBC (Bld) 76.3 % High 50.0-75.0 [facility] Comment on above: Performed By: #### V IDH, ANEU, URIC, CMP, [id number], ADIFF, CBC, GFR, LIPID, PSA, A1C, TSHR #### [address] [address] #### B12 #### [address] [address] .GFRon 05-12-2024 Estimated Glomerular Filtration Rate 53 ml/min/1.73sqm Normal [facility] Comment on above: Result Comment: Stages of Chronic Kidney Disease (CKD) Stage Description eGFR(ml/min/1.73 sq.m.) CKD 1 Normal kidney function or >=90 normal kindney function with possible kidney damage (ex. Proteinuria) CKD 2 Kidney damage with mild loss 60-89 of kidney function CKD 3a Mild to moderate loss of kidney 45-59 function CKD 3b Moderate to severe loss of 30-44 of kindey function CKD 4 Severe loss of kidney function 15-29 CKD 5 Kidney failure <15 Note: (go live 2024) the eGFR calculation was updated to the 2020 CKD-EPI creatinine equation without a race factor to calculate the eGFR results. Performed By: #### L IPID, BMP, URIC, GFR, A1C #### [address] [address] .NEUABSon 05-12-2024 Neutrophil, Absolute 6.7 10 3/mcL Normal 2.3-8.1 [facility] Comment on above: Performed By: #### V IDH, ANEU, URIC, CMP, [id number], ADIFF, CBC, GFR, LIPID, PSA, A1C, TSHR #### [address] [address] #### B12 #### [address] [address] B12on 05-12-2024 Cobalamin (Vitamin B12) [Mass/Vol] 528 pg/mL Normal 211-911 [facility] Comment on above: Performed By: #### L IPID, BMP, URIC, GFR, A1C #### [address] [address] CBCon 05-12-2024 Erythrocyte distribution width (RBC) [Ratio] 13.5 % Normal 11.5-15.5 [facility] Comment on above: Performed By: #### V IDH, ANEU, URIC, CMP, [id number], ADIFF, CBC, GFR, LIPID, PSA, A1C, TSHR #### [place] [address] #### B12 #### [place] [address] Hematocrit (Bld) [Volume fraction] 46.3 % Normal 40.0-52.0 [facility] Comment on above: Performed By: #### V IDH, ANEU, URIC, CMP, [id number], ADIFF, CBC, GFR, LIPID, PSA, A1C, TSHR #### [place] [address] #### B12 #### [place] [address] Hgb 15.4 G/dL Normal 13.0-17.5 [facility] Comment on above: Performed By: #### V IDH, ANEU, URIC, CMP, [id number], ADIFF, CBC, GFR, LIPID, PSA, A1C, TSHR #### [place] [address] #### B12 #### [place] [address] MCH (RBC) [Entitic mass] 30.7 pg Normal 27.0-33.0 [facility] Comment on above: Performed By: #### V IDH, ANEU, URIC, CMP, [id number], ADIFF, CBC, GFR, LIPID, PSA, A1C, TSHR #### [place] [address] #### B12 #### [place] [address] MCHC 33.3 G/dL Normal 32.0-36.0 [facility] Comment on above: Performed By: #### V IDH, ANEU, URIC, CMP, [id number], ADIFF, CBC, GFR, LIPID, PSA, A1C, TSHR #### [address] [address] #### B12 #### [address] [address] MCV (RBC) [Entitic vol] 92.3 fL Normal 81.0-100.0 [facility] Comment on above: Performed By: #### V IDH, ANEU, URIC, CMP, [id number], ADIFF, CBC, GFR, LIPID, PSA, A1C, TSHR #### [place] [address] #### B12 #### [place] [address] Platelet 315 10 3/mcL Normal 150-450 [facility] Comment on above: Performed By: #### V IDH, ANEU, URIC, CMP, 636907, ADIFF, CBC, GFR, LIPID, PSA, A1C, TSHR #### [place] [address] #### B12 #### [place] [address] Platelet mean volume (Bld) [Entitic vol] 7.4 fL Normal 6.4-10.5 [facility] Comment on above: Performed By: #### V IDH, ANEU, URIC, CMP, [id number], ADIFF, CBC, GFR, LIPID, PSA, A1C, TSHR #### [place] [address] #### B12 #### [place] [address] RBC 5.01 10 6/mcL Normal 4.50-6.00 [facility] Comment on above: Performed By: #### V IDH, ANEU, URIC, CMP, [id number], ADIFF, CBC, GFR, LIPID, PSA, A1C, TSHR #### [place] [address] #### B12 #### [facility] [address] [place] [address] WBC 8.7 10 3/mcL Normal 4.5-10.8 [facility] Comment on above: Performed By: #### V IDH, ANEU, URIC, CMP, [id number], ADIFF, CBC, GFR, LIPID, PSA, A1C, TSHR #### [address] [address] #### B12 #### [place] [id number] [place] [address] CMPon 05-12-2024 Albumin Level 3.7 G/dL Normal 3.4-4.8 [facility] Comment on above: Performed By: #### L IPID, BMP, URIC, GFR, A1C #### [address] [address] Albumin/Globulin [Mass ratio] 0.9 {ratio} Low 1.1-2.5 [facility] Comment on above: Performed By: #### L IPID, BMP, URIC, GFR, A1C #### [address] [address] ALP [Catalytic activity/Vol] 105 U/L Normal 40-135 [facility] Comment on above: Performed By: #### L IPID, BMP, URIC, GFR, A1C #### [address] [address] ALT [Catalytic activity/Vol] 25 U/L Normal 16-63 [facility] Comment on above: Performed By: #### L IPID, BMP, URIC, GFR, A1C #### [address] [address] AST [Catalytic activity/Vol] 18 U/L Normal 10-40 [facility] Comment on above: Performed By: #### L IPID, BMP, URIC, GFR, A1C #### [address] [address] Bili Total 0.9 mg/dL Normal 0.2-1.0 [facility] Comment on above: Result Comment: Use of this assay is not recommended for patients undergoing treatment with eltrombopag due to the potential for falsely elevated results. Performed By: #### L IPID, BMP, URIC, GFR, A1C #### [place] [address] BUN/Creatinine Ratio 27 ratio Normal 7-27 [facility] Comment on above: Performed By: #### L IPID, BMP, URIC, GFR, A1C #### [place] [address] Calcium [Mass/Vol] 9.0 mg/dL Normal 8.4-10.2 [facility] Comment on above: Performed By: #### L IPID, BMP, URIC, GFR, A1C #### [place] [address] Chloride [Moles/Vol] 102 mmol/L Normal 98-107 [facility] Comment on above: Performed By: #### L IPID, BMP, URIC, GFR, A1C #### [place] [address] CO2 [Moles/Vol] 25 mmol/L Normal 23-31 [facility] Comment on above: Performed By: #### L IPID, BMP, URIC, GFR, A1C #### [place] [address] Creatinine [Mass/Vol] 1.38 mg/dL High 0.70-1.30 [facility] Comment on above: Result Comment: Test ing performed on Siemens Dimension EXL analyzer using a modified kinetic Morgan technique. Performed By: #### L IPID, BMP, URIC, GFR, A1C #### [place] [address] Electrolyte Balance 10.0 mEq/L Normal 4.0-15.0 [facility] Comment on above: Performed By: #### L IPID, BMP, URIC, GFR, A1C #### [place] [address] Globulin 4.0 G/dL High 1.5-3.8 [facility] Comment on above: Performed By: #### L IPID, BMP, URIC, GFR, A1C #### [address] [address] Glucose [Mass/Vol] 103 mg/dL Normal 83-110 [facility] Comment on above: Performed By: #### L IPID, BMP, URIC, GFR, A1C #### [address] [address] Potassium [Moles/Vol] 4.5 mmol/L Normal 3.5-5.1 [facility] Comment on above: Performed By: #### L IPID, BMP, URIC, GFR, A1C #### [address] [address] Sodium [Moles/Vol] 137 mmol/L Normal 136-145 [facility] Comment on above: Performed By: #### L IPID, BMP, URIC, GFR, A1C #### [address] [address] Total Protein 7.7 G/dL Normal 6.4-8.2 [facility] Comment on above: Performed By: #### L IPID, BMP, URIC, GFR, A1C #### [address] [address] Urea nitrogen [Mass/Vol] 37 mg/dL High 7-18 [facility] Comment on above: Performed By: #### L IPID, BMP, URIC, GFR, A1C #### [address] [address] LIPIDon 05-12-2024 Cholesterol [Mass/Vol] 187 mg/dL Normal 0-200 [facility] Comment on above: Result Comment: Chol esterol Reference Interval: Less than 200 Desirable 200-239 Borderline high risk 240 and above High risk Performed By: #### L IPID, BMP, URIC, GFR, A1C #### [address] [address] Cholesterol in HDL [Mass/Vol] 39 mg/dL Low 40-60 [facility] Comment on above: Performed By: #### L IPID, BMP, URIC, GFR, A1C #### [address] [address] Cholesterol in LDL [Mass/Vol] 98 mg/dL Normal 0-130 [facility] Comment on above: Performed By: #### L IPID, BMP, URIC, GFR, A1C #### [address] [address] Triglyceride [Mass/Vol] 250 mg/dL High 0-150 [facility] Comment on above: Result Comment: Trig lyceride Reference Interval: Less than 150 Normal 150-199 Borderline high risk 200-499 High risk 500 or higher Very high risk Performed By: #### L IPID, BMP, URIC, GFR, A1C #### [address] [address] PSAon 05-12-2024 Prostate Specific Antigen 2.35 ng/mL Normal 0.00-4.00 [facility] Comment on above: Performed By: #### L IPID, BMP, URIC, GFR, A1C #### [address] [address] TSHRon 05-12-2024 TSH Qn 1.48 m[IU]/L Normal 0.36-3.74 [facility] Comment on above: Performed By: #### L IPID, BMP, URIC, GFR, A1C #### [address] [address] URICon 05-12-2024 Uric Acid Lvl 7.0 mg/dL Normal 3.5-7.2 [facility] Comment on above: Performed By: #### L IPID, BMP, URIC, GFR, A1C #### [address] [address] VIDHon 05-12-2024 Vit. D 25-Hydroxy 13.5 ng/mL Normal [facility] Comment on above: Result Comment: Inte rpretive Values Based on Total 25(OH) Vitamin D: Deficient <20 ng/mL Insufficient 20 - <30 ng/mL Sufficient 30-100 ng/mL Performed By: #### L IPID, BMP, URIC, GFR, A1C #### [address] [address] .GFRon 12-26-2023 GFR 66 ml/min/1.73sqm Normal [facility] Comment on above: Result Comment: GFR Population mean for , Non- Americans Ages 20-29 = 116 mL/min/1.73 sq.m. Ages 30-39 = 107 mL/min/1.73 sq.m. Ages 40-49 = 99 mL/min/1.73 sq.m. Ages 50-59 = 93 mL/min/1.73 sq.m. Ages 60-69 = 85 mL/min/1.73 sq.m. Ages 70+ = 75 mL/min/1.73 sq.m. Chronic Kidney Disease: Less than 60 mL/min/1.73 square meters End Stage Renal Disease: Less than 15 mL/min/1.73 square meters Performed By: #### L IPID, BMP, URIC, GFR, A1C #### [address] [address] GFR Non- 54 ml/min/1.73sqm [facility] Comment on above: Result Comment: GFR Population mean for , Non- Americans Ages 20-29 = 116 mL/min/1.73 sq.m. Ages 30-39 = 107 mL/min/1.73 sq.m. Ages 40-49 = 99 mL/min/1.73 sq.m. Ages 50-59 = 93 mL/min/1.73 sq.m. Ages 60-69 = 85 mL/min/1.73 sq.m. Ages 70+ = 75 mL/min/1.73 sq.m. Chronic Kidney Disease: Less than 60 mL/min/1.73 square meters End Stage Renal Disease: Less than 15 mL/min/1.73 square meters Performed By: #### L IPID, BMP, URIC, GFR, A1C #### [address] [address] A1Con 12-26-2023 Glucose [Mass/Vol] 120 mg/dL Normal [facility] Comment on above: Result Comment: Erika mated Average Glucose calculated by equation ((28.7xA1C)-46.7) Estimated average glucose (eAG) is a calculated value from Hemoglobin A1C and is office services representative of the average blood glucose level in the last 2-3 month period. Normal range: less than 114 mg/dL Performed By: #### L IPID, BMP, URIC, GFR, A1C #### [address] [address] HbA1c (Bld) [Mass fraction] 5.8 % Normal 4.3-6.4 [facility] Comment on above: Performed By: #### L IPID, BMP, URIC, GFR, A1C #### [address] [address] BMPon 12-26-2023 BUN/Creatinine Ratio 17 ratio Normal 7-27 [facility] Comment on above: Performed By: #### L IPID, BMP, URIC, GFR, A1C #### [address] [address] Calcium [Mass/Vol] 9.5 mg/dL Normal 8.4-10.2 [facility] Comment on above: Performed By: #### L IPID, BMP, URIC, GFR, A1C #### [address] [address] Chloride [Moles/Vol] 105 mmol/L Normal 98-107 [facility] Comment on above: Performed By: #### L IPID, BMP, URIC, GFR, A1C #### [address] [address] CO2 [Moles/Vol] 26 mmol/L Normal 23-31 [facility] Comment on above: Performed By: #### L IPID, BMP, URIC, GFR, A1C #### [address] [address] Creatinine [Mass/Vol] 1.29 mg/dL Normal 0.70-1.30 [facility] Comment on above: Result Comment: Test ing performed on Siemens Dimension EXL analyzer using a modified kinetic Morgan technique. Performed By: #### L IPID, BMP, URIC, GFR, A1C #### [address] [address] Electrolyte Balance 10.0 mEq/L Normal 4.0-15.0 [facility] Comment on above: Performed By: #### L IPID, BMP, URIC, GFR, A1C #### [address] [address] Glucose [Mass/Vol] 111 mg/dL High 83-110 [facility] Comment on above: Performed By: #### L IPID, BMP, URIC, GFR, A1C #### [address] [address] Potassium [Moles/Vol] 4.8 mmol/L Normal 3.5-5.1 [facility] Comment on above: Performed By: #### L IPID, BMP, URIC, GFR, A1C #### [address] [address] Sodium [Moles/Vol] 141 mmol/L Normal 136-145 [facility] Comment on above: Performed By: #### L IPID, BMP, URIC, GFR, A1C #### [address] [address] Urea nitrogen [Mass/Vol] 22 mg/dL High 7-18 [facility] Comment on above: Performed By: #### L IPID, BMP, URIC, GFR, A1C #### [address] [address] LABORATORYOrdered By: SYSTEM SYSTEM on 12-26-2023 Calcium [Mass/Vol] 9.5 mg/dL Normal 8.4 - 10. 2 mg/dL AO ADM SS Chloride [Moles/Vol] 105 mmol/L Normal 98 - 10 7 mmol/L AO ADM [facility] CO2 [Moles/Vol] 26 mmol/L Normal 23 - 31 mmol/L AO ADM [facility] Creatinine [Mass/Vol] 1.29 mg/dL Normal 0.70 - 1.30 mg/dL AO AD[facility] Comment on above: Interpretive Data: T esting performed on Siemens Dimension EXL analyzer using a modified kinetic Morgan technique. Electrolyte Balance 10.0 mEq/L Normal 4.0 - 15 .0 mEq/L AO ADM SS GFR/1.73 sq M.predicted among blacks MDRD (S/P/Bld) [Vol rate/Area] 66 ml/min/1.73sqm Invalid Interpretation Code AO Chemistry S Comment on above: Interpretive Data: GFR Population mean for , Non- Americans Ages 20-29 = 116 mL/min/1.73 sq.m. Ages 30-39 = 107 mL/min/1.73 sq.m. Ages 40-49 = 99 mL/min/1.73 sq.m. Ages 50-59 = 93 mL/min/1.73 sq.m. Ages 60-69 = 85 mL/min/1.73 sq.m. Ages 70+ = 75 mL/min/1.73 sq.m. Chronic Kidney Disease: Less than 60 mL/min/1.73 square meters End Stage Renal Disease: Less than 15 mL/min/1.73 square meters GFR/1.73 sq M.predicted among non-blacks MDRD (S/P/Bld) [Vol rate/Area] 54 ml/min/1.73sqm Invalid Interpretation Code AO Chemistry S Comment on above: Interpretive Data: GFR Population mean for , Non- Americans Ages 20-29 = 116 mL/min/1.73 sq.m. Ages 30-39 = 107 mL/min/1.73 sq.m. Ages 40-49 = 99 mL/min/1.73 sq.m. Ages 50-59 = 93 mL/min/1.73 sq.m. Ages 60-69 = 85 mL/min/1.73 sq.m. Ages 70+ = 75 mL/min/1.73 sq.m. Chronic Kidney Disease: Less than 60 mL/min/1.73 square meters End Stage Renal Disease: Less than 15 mL/min/1.73 square meters Glucose [Mass/Vol] 111 mg/dL High 83 - 110 mg/dL AO ADM SS Glucose [Mass/Vol] 120 mg/dL Invalid Interpretation Code AO Chemistry S Comment on above: Interpretive Data: E stimated average glucose (eAG) is a calculated value from Hemoglobin A1C and is office services representative of the average blood glucose level in the last 2-3 month period. Normal range: less than 114 mg/dL HbA1c (Bld) [Mass fraction] 5.8 % Normal 4.3 - 6.4 % AO ADM SS Potassium [Moles/Vol] 4.8 mmol/L Normal 3.5 - 5.1 mmol/L AO ADM SS Sodium [Moles/Vol] 141 mmol/L Normal 136 - 145 mmol/L AO ADM SS Urea nitrogen [Mass/Vol] 22 mg/dL High 7 - 18 mg/dL AO ADM SS Urea nitrogen/Creatinine [Mass ratio] 17 ratio Normal 7 - 27 ratio AO ADM SS Uric Acid Lvl 5.4 mg/dL Normal 3.5 - 7.2 mg/dL AO ADM SS LABORATORYOrdered By: Maximiliano Drummond on 12-26-2023 Cholesterol [Mass/Vol] 160 mg/dL Normal 0 - 2 00 mg/dL AO ADM SS Comment on above: Interpretive Data: C holesterol Reference Interval: Less than 200 Desirable 200-239 Borderline high risk 240 and above High risk Cholesterol in HDL [Mass/Vol] 43 mg/dL Normal 40 - 60 mg/dL AO ADM SS Cholesterol in LDL [Mass/Vol] 97 mg/dL Normal 0 - 130 mg/dL AO ADM SS Triglyceride [Mass/Vol] 102 mg/dL Normal 0 - 150 mg/dL AO ADM SS Comment on above: Interpretive Data: T riglyceride Reference Interval: Less than 150 Normal 150-199 Borderline high risk 200-499 High risk 500 or higher Very high risk LIPIDon 12-26-2023 Cholesterol [Mass/Vol] 160 mg/dL Normal 0-200 [facility] Comment on above: Result Comment: Chol esterol Reference Interval: Less than 200 Desirable 200-239 Borderline high risk 240 and above High risk Performed By: #### L IPID, BMP, URIC, GFR, A1C #### [address] [address] Cholesterol in HDL [Mass/Vol] 43 mg/dL Normal 40-60 [facility] Comment on above: Performed By: #### L IPID, BMP, URIC, GFR, A1C #### [address] [address] Cholesterol in LDL [Mass/Vol] 97 mg/dL Normal 0-130 [facility] Comment on above: Performed By: #### L IPID, BMP, URIC, GFR, A1C #### [address] [address] Triglyceride [Mass/Vol] 102 mg/dL Normal 0-150 [facility] Comment on above: Result Comment: Trig lyceride Reference Interval: Less than 150 Normal 150-199 Borderline high risk 200-499 High risk 500 or higher Very high risk Performed By: #### L IPID, BMP, URIC, GFR, A1C #### [facility] [address] [place], [place] [address] URICon 12-26-2023 Uric Acid Lvl 5.4 mg/dL Normal 3.5-7.2 [facility] Comment on above: Performed By: #### L IPID, BMP, URIC, GFR, A1C #### [place] [address] [place], [place] [address] BD BONE DENSITY DEXA AXIAL S BLAISE 10-08-2023 BD BONE DENSITY DEXA AXIAL SKELETON ORIGINAL EXAMINATION: BONE DENSITOMETRY 10/08/2023 2:30 pm TECHNIQUE: A bone density dual x-ray absorptiometry (DEXA) scan was performed of the axial (e.g. hips, spine) and/or appendicular (e.g. radius) skeleton as appropriate. COMPARISON: None available HISTORY: ORDERING SYSTEM PROVIDED HISTORY: Reason for Exam: Osteoporosis Screening FINDINGS: BMD (g/cm2) Lumbar Spine: 0.921. T Score Lumbar Spine: -1.5 BMD (g/cm2) Left Femoral Neck: 0.683. T Score Left Femoral Neck: -1.8 BMD (g/cm2) Left Hip: 0.745. T Score Left Hip: -1.9 FRAX: 10 year fracture risk assessment Major osteoporotic fracture: 7.8% Hip fracture: 2.6% IMPRESSION: Osteopenia by WHO criteria. World Health Organization criteria: (Comparing with young normal sex matched population) - Normal: T-score at or above -1 SD (standard deviation) - Osteopenia: T-score between -1 and -2.5 SD - Osteoporosis: T-score at or below -2.5 SD The NOF recommends that FDA-approved medical therapies be considered in post-menopausal women and men age >/= 50 years with a: * Hip or vertebral fracture, or * T-score of /= 20% for major osteoporotic fractures or * >/= 3% for hip fractures All treatment decisions require clinical judgement and consideration of individual patient factors, including patient preferences, comorbidities, previous drug use, risk factors not captured in the FRAX registered model (e.g., frailty, falls, vitamin D deficiency, increased bone turnover, interval significant decline in bone density) and possible under- or over-estimation of fracture risk by FRAX. I have personally reviewed the images of this examination and agree with the resident's findings and interpretation. Interpreted by: Blaise Bautista DO Preliminary Report By: Kristopher Orta Electronically signed By Blaise Bautista DO Dictated Date: 10/08/2023 3:17:46 PM Prelim Date: 10/08/2023 3:26:35 PM Sign Date: 10/08/2023 3:26:35 PM Ordering Provider: AVILA HWANG [facility] ([place]) .GFRon 08-31-2023 GFR 69 ml/min/1.73sqm [facility] ([place]) Comment on above: Result Comment: GFR Population mean for , Non- Americans Ages 20-29 = 116 mL/min/1.73 sq.m. Ages 30-39 = 107 mL/min/1.73 sq.m. Ages 40-49 = 99 mL/min/1.73 sq.m. Ages 50-59 = 93 mL/min/1.73 sq.m. Ages 60-69 = 85 mL/min/1.73 sq.m. Ages 70+ = 75 mL/min/1.73 sq.m. Chronic Kidney Disease: Less than 60 mL/min/1.73 square meters End Stage Renal Disease: Less than 15 mL/min/1.73 square meters Performed By: #### C BC, LIPID, CMP, ANEU, FT4, TSH, PSA, URIC, ADIFF, A1C, GFR #### [address] [address] #### B12 #### [address] [address] GFR Non- 57 ml/min/1.73sqm [facility] ([place]) Comment on above: Result Comment: GFR Population mean for , Non- Americans Ages 20-29 = 116 mL/min/1.73 sq.m. Ages 30-39 = 107 mL/min/1.73 sq.m. Ages 40-49 = 99 mL/min/1.73 sq.m. Ages 50-59 = 93 mL/min/1.73 sq.m. Ages 60-69 = 85 mL/min/1.73 sq.m. Ages 70+ = 75 mL/min/1.73 sq.m. Chronic Kidney Disease: Less than 60 mL/min/1.73 square meters End Stage Renal Disease: Less than 15 mL/min/1.73 square meters Performed By: #### C BC, LIPID, CMP, ANEU, FT4, TSH, PSA, URIC, ADIFF, A1C, GFR #### [address] [address] #### B12 #### [address] [address] [facility] HbA1c (Bld) [Mass fraction] 5.9 % Normal 4.3-6.4 [facility] ([place]) Comment on above: Performed By: #### C BC, LIPID, CMP, ANEU, FT4, TSH, PSA, URIC, ADIFF, A1C, GFR #### [address] [address] #### B12 #### [address] [address] BMPon 08-31-2023 BUN/Creatinine Ratio 19 ratio Normal 7-27 [facility] ([place]) Comment on above: Performed By: #### C BC, LIPID, CMP, ANEU, FT4, TSH, PSA, URIC, ADIFF, A1C, GFR #### [address] [address] #### B12 #### [address] [address] Calcium [Mass/Vol] 9.3 mg/dL Normal 8.4-10.2 [facility] ([place]) Comment on above: Performed By: #### C BC, LIPID, CMP, ANEU, FT4, TSH, PSA, URIC, ADIFF, A1C, GFR #### [address] [address] #### B12 #### [address] [address] Chloride [Moles/Vol] 103 mmol/L Normal 98-107 [facility] ([place]) Comment on above: Performed By: #### C BC, LIPID, CMP, ANEU, FT4, TSH, PSA, URIC, ADIFF, A1C, GFR #### [place] [address] #### B12 #### [place] [address] CO2 [Moles/Vol] 27 mmol/L Normal 23-31 [facility] ([place]) Comment on above: Performed By: #### C BC, LIPID, CMP, ANEU, FT4, TSH, PSA, URIC, ADIFF, A1C, GFR #### [place] [address] #### B12 #### [place] [address] Creatinine [Mass/Vol] 1.24 mg/dL Normal 0.70-1.30 [facility] ([place]) Comment on above: Performed By: #### C BC, LIPID, CMP, ANEU, FT4, TSH, PSA, URIC, ADIFF, A1C, GFR #### [place] [address] #### B12 #### [place] [address] Electrolyte Balance 8.0 mEq/L Normal 4.0-15.0 [facility] ([place]) Comment on above: Performed By: #### C BC, LIPID, CMP, ANEU, FT4, TSH, PSA, URIC, ADIFF, A1C, GFR #### [place] [address] #### B12 #### [place] [address] Glucose [Mass/Vol] 118 mg/dL High 83-110 [facility] ([place]) Comment on above: Performed By: #### C BC, LIPID, CMP, ANEU, FT4, TSH, PSA, URIC, ADIFF, A1C, GFR #### [address] [address] #### B12 #### [address] [address] Potassium [Moles/Vol] 4.6 mmol/L Normal 3.5-5.1 [facility] ([place]) Comment on above: Performed By: #### C BC, LIPID, CMP, ANEU, FT4, TSH, PSA, URIC, ADIFF, A1C, GFR #### [address] [address] #### B12 #### [address] [address] Sodium [Moles/Vol] 138 mmol/L Normal 136-145 [facility] ([place]) Comment on above: Performed By: #### C BC, LIPID, CMP, ANEU, FT4, TSH, PSA, URIC, ADIFF, A1C, GFR #### [address] [address] #### B12 #### [address] [address] Urea nitrogen [Mass/Vol] 23 mg/dL High 7-18 [facility] ([place]) Comment on above: Performed By: #### C BC, LIPID, CMP, ANEU, FT4, TSH, PSA, URIC, ADIFF, A1C, GFR #### [address] [address] #### B12 #### [address] [address] DLDLon 08-31-2023 Direct LDL Cholesterol 117 mg/dL High 0-99 [facility] ([place]) Comment on above: Result Comment: Dire ct LDL Cholesterol Reference Interval: Optimal: <100 mg/dL Near Optimal/above optimal: 100-129 mg/dL Borderline high: 130-159 mg/dL High: 160-189 mg/dL Very high: >=190 mg/dL Performed By: #### C BC, LIPID, CMP, ANEU, FT4, TSH, PSA, URIC, ADIFF, A1C, GFR #### [address] [address] #### B12 #### [place] [address] Osvaldo 08-31-2023 Ferritin [Mass/Vol] 27.0 ng/mL Normal 26.0-388.0 [facility] ([place]) Comment on above: Performed By: #### C BC, LIPID, CMP, ANEU, FT4, TSH, PSA, URIC, ADIFF, A1C, GFR #### [place] [address] #### B12 #### [place] [address] FESon 08-31-2023 Iron [Mass/Vol] 51 ug/dL Low 65-175 [facility] ([place]) Comment on above: Performed By: #### C BC, LIPID, CMP, ANEU, FT4, TSH, PSA, URIC, ADIFF, A1C, GFR #### [place] [address] #### B12 #### [place] [address] Iron Sat 12 % Normal [facility] ([place]) Comment on above: Performed By: #### C BC, LIPID, CMP, ANEU, FT4, TSH, PSA, URIC, ADIFF, A1C, GFR #### [place] [address] #### B12 #### [place] [address] TIBC 410 mcg/dL Normal 250-450 [facility] ([place]) Comment on above: Performed By: #### C BC, LIPID, CMP, ANEU, FT4, TSH, PSA, URIC, ADIFF, A1C, GFR #### [place] [address] #### B12 #### [place] [address] FOLon 08-31-2023 Folate 15.06 ng/mL Normal 5.38-24.00 [facility] ([place]) Comment on above: Performed By: #### C BC, LIPID, CMP, ANEU, FT4, TSH, PSA, URIC, ADIFF, A1C, GFR #### [place] [id number] [place], [place] [address] #### B12 #### [address] [address] LABORATORYOrdered By: Carline Berrios on 08-31-2023 Cholesterol in LDL [Mass/Vol] 117 mg/dL High 0 - 99 mg/dL AO ADM SS Comment on above: Interpretive Data: D irect LDL Cholesterol Reference Interval: Optimal: <100 mg/dL Near Optimal/above optimal: 100-129 mg/dL Borderline high: 130-159 mg/dL High: 160-189 mg/dL Very high: >=190 mg/dL Cholesterol [Mass/Vol] 199 mg/dL Normal 0 - 2 00 mg/dL AO ADM SS Comment on above: Interpretive Data: C holesterol Reference Interval: Less than 200 Desirable 200-239 Borderline high risk 240 and above High risk Cholesterol in HDL [Mass/Vol] 43 mg/dL Normal 40 - 60 mg/dL AO ADM SS Cholesterol in LDL [Mass/Vol] 116 mg/dL Normal 0 - 130 mg/dL AO ADM SS Triglyceride [Mass/Vol] 199 mg/dL High 0 - 150 mg/dL AO ADM SS Comment on above: Interpretive Data: T riglyceride Reference Interval: Less than 150 Normal 150-199 Borderline high risk 200-499 High risk 500 or higher Very high risk LABORATORYOrdered By: SYSTEM SYSTEM on 08-31-2023 25-hydroxyvitamin D3 [Mass/Vol] 23.4 ng/mL Invalid Interpretation Code AO ADM SS Comment on above: Interpretive Data: I nterpretive Values Based on Total 25(OH) Vitamin D: Deficient <20 ng/mL Insufficient 20 - <30 ng/mL Sufficient 30-100 ng/mL Calcium [Mass/Vol] 9.3 mg/dL Normal 8.4 - 10. 2 mg/dL AO ADM SS Chloride [Moles/Vol] 103 mmol/L Normal 98 - 10 7 mmol/L AO ADM SS CO2 [Moles/Vol] 27 mmol/L Normal 23 - 31 mmol/L AO ADM SS Creatinine [Mass/Vol] 1.24 mg/dL Normal 0.70 - 1.30 mg/dL AO ADM SS Electrolyte Balance 8.0 mEq/L Normal 4.0 - 15 .0 mEq/L AO ADM SS Ferritin [Mass/Vol] 27.0 ng/mL Normal 26.0 - 3 88.0 ng/mL AO ADM SS Folate [Mass/Vol] 15.06 ng/mL Normal 5.38 - 24. 00 ng/mL AH ADM SS GFR/1.73 sq M.predicted among blacks MDRD (S/P/Bld) [Vol rate/Area] 69 ml/min/1.73sqm Invalid Interpretation Code AO Chemistry S Comment on above: Interpretive Data: GFR Population mean for , Non- Americans Ages 20-29 = 116 mL/min/1.73 sq.m. Ages 30-39 = 107 mL/min/1.73 sq.m. Ages 40-49 = 99 mL/min/1.73 sq.m. Ages 50-59 = 93 mL/min/1.73 sq.m. Ages 60-69 = 85 mL/min/1.73 sq.m. Ages 70+ = 75 mL/min/1.73 sq.m. Chronic Kidney Disease: Less than 60 mL/min/1.73 square meters End Stage Renal Disease: Less than 15 mL/min/1.73 square meters GFR/1.73 sq M.predicted among non-blacks MDRD (S/P/Bld) [Vol rate/Area] 57 ml/min/1.73sqm Invalid Interpretation Code AO Chemistry S Comment on above: Interpretive Data: GFR Population mean for , Non- Americans Ages 20-29 = 116 mL/min/1.73 sq.m. Ages 30-39 = 107 mL/min/1.73 sq.m. Ages 40-49 = 99 mL/min/1.73 sq.m. Ages 50-59 = 93 mL/min/1.73 sq.m. Ages 60-69 = 85 mL/min/1.73 sq.m. Ages 70+ = 75 mL/min/1.73 sq.m. Chronic Kidney Disease: Less than 60 mL/min/1.73 square meters End Stage Renal Disease: Less than 15 mL/min/1.73 square meters Glucose [Mass/Vol] 118 mg/dL High 83 - 110 mg/dL AO ADM SS HbA1c (Bld) [Mass fraction] 5.9 % Normal 4.3 - 6.4 % AO ADM SS Iron [Mass/Vol] 51 ug/dL Low 65 - 175 mcg/dL AO ADM SS Iron binding capacity [Mass/Vol] 410 mcg/dL Normal 250 - 450 mcg/dL AO ADM SS Iron Sat 12 % Invalid Interpretation Code AO ADM SS Potassium [Moles/Vol] 4.6 mmol/L Normal 3.5 - 5.1 mmol/L AO ADM SS Sodium [Moles/Vol] 138 mmol/L Normal 136 - 145 mmol/L AO ADM SS Urea nitrogen [Mass/Vol] 23 mg/dL High 7 - 18 mg/dL AO ADM SS Urea nitrogen/Creatinine [Mass ratio] 19 ratio Normal 7 - 27 ratio AO ADM SS LIPIDon 08-31-2023 Cholesterol [Mass/Vol] 199 mg/dL Normal 0-200 [facility] ([place]) Comment on above: Result Comment: Chol esterol Reference Interval: Less than 200 Desirable 200-239 Borderline high risk 240 and above High risk Performed By: #### C BC, LIPID, CMP, ANEU, FT4, TSH, PSA, URIC, ADIFF, A1C, GFR #### [address] [address] #### B12 #### [address] [address] Cholesterol in HDL [Mass/Vol] 43 mg/dL Normal 40-60 [facility] ([place]) Comment on above: Performed By: #### C BC, LIPID, CMP, ANEU, FT4, TSH, PSA, URIC, ADIFF, A1C, GFR #### [address] [address] #### B12 #### [address] [address] Cholesterol in LDL [Mass/Vol] 116 mg/dL Normal 0-130 [facility] ([place]) Comment on above: Performed By: #### C BC, LIPID, CMP, ANEU, FT4, TSH, PSA, URIC, ADIFF, A1C, GFR #### [address] [address] #### B12 #### [address] [address] Triglyceride [Mass/Vol] 199 mg/dL High 0-150 [facility] ([place]) Comment on above: Result Comment: Trig lyceride Reference Interval: Less than 150 Normal 150-199 Borderline high risk 200-499 High risk 500 or higher Very high risk Performed By: #### C BC, LIPID, CMP, ANEU, FT4, TSH, PSA, URIC, ADIFF, A1C, GFR #### [place] [address] #### B12 #### [place] [address] VIDHon 08-31-2023 Vit. D 25-Hydroxy 23.4 ng/mL Normal [facility] ([place]) Comment on above: Result Comment: Inte rpretive Values Based on Total 25(OH) Vitamin D: Deficient <20 ng/mL Insufficient 20 - <30 ng/mL Sufficient 30-100 ng/mL Performed By: #### C BC, LIPID, CMP, ANEU, FT4, TSH, PSA, URIC, ADIFF, A1C, GFR #### [place] [address] #### B12 #### [place] [address] .Auto Diffon 05-29-2023 Basophil, Absolute 0.1 10 3/mcL Normal 0.0-0.2 [facility] ([place]) Comment on above: Performed By: #### C BC, LIPID, CMP, ANEU, FT4, TSH, PSA, URIC, ADIFF, A1C, GFR #### [place] [address] #### B12 #### [place] [address] Basophils/100 WBC (Bld) 0.9 % Normal 0.0-2.5 [facility] ([place]) Comment on above: Performed By: #### C BC, LIPID, CMP, ANEU, FT4, TSH, PSA, URIC, ADIFF, A1C, GFR #### [place] [address] #### B12 #### [place] [address] Eosinophil, Absolute 0.2 10 3/mcL Normal 0.0-0.4 [facility] ([place]) Comment on above: Performed By: #### C BC, LIPID, CMP, ANEU, FT4, TSH, PSA, URIC, ADIFF, A1C, GFR #### [address] [address] #### B12 #### [address] [address] Eosinophils/100 WBC (Bld) 3.0 % Normal 0.0-7.0 [facility] ([place]) Comment on above: Performed By: #### C BC, LIPID, CMP, ANEU, FT4, TSH, PSA, URIC, ADIFF, A1C, GFR #### [address] [address] #### B12 #### [address] [address] Lymphocyte, Absolute 1.2 10 3/mcL Normal 0.8-3.9 [facility] ([place]) Comment on above: Performed By: #### C BC, LIPID, CMP, ANEU, FT4, TSH, PSA, URIC, ADIFF, A1C, GFR #### [address] [address] #### B12 #### [address] [address] Lymphocytes/100 WBC (Bld) 18.2 % Normal 10.0-50.0 [facility] ([place]) Comment on above: Performed By: #### C BC, LIPID, CMP, ANEU, FT4, TSH, PSA, URIC, ADIFF, A1C, GFR #### [address] [address] #### B12 #### [address] [address] Monocyte, Absolute 0.6 10 3/mcL Normal 0.2-1.0 [facility] ([place]) Comment on above: Performed By: #### C BC, LIPID, CMP, ANEU, FT4, TSH, PSA, URIC, ADIFF, A1C, GFR #### [place] [address] #### B12 #### [address] [address] Monocytes/100 WBC (Bld) 8.4 % Normal 1.7-13.0 [facility] ([place]) Comment on above: Performed By: #### C BC, LIPID, CMP, ANEU, FT4, TSH, PSA, URIC, ADIFF, A1C, GFR #### [address] [address] #### B12 #### [address] [address] Neutrophils/100 WBC (Bld) 69.5 % Normal 37.0-80.0 [facility] ([place]) Comment on above: Performed By: #### C BC, LIPID, CMP, ANEU, FT4, TSH, PSA, URIC, ADIFF, A1C, GFR #### [address] [address] #### B12 #### [address] [address] .GFRon 05-29-2023 GFR 55 ml/min/1.73sqm Normal [facility] ([place]) Comment on above: Result Comment: GFR Population mean for , Non- Americans Ages 20-29 = 116 mL/min/1.73 sq.m. Ages 30-39 = 107 mL/min/1.73 sq.m. Ages 40-49 = 99 mL/min/1.73 sq.m. Ages 50-59 = 93 mL/min/1.73 sq.m. Ages 60-69 = 85 mL/min/1.73 sq.m. Ages 70+ = 75 mL/min/1.73 sq.m. Chronic Kidney Disease: Less than 60 mL/min/1.73 square meters End Stage Renal Disease: Less than 15 mL/min/1.73 square meters Performed By: #### C BC, LIPID, CMP, ANEU, FT4, TSH, PSA, URIC, ADIFF, A1C, GFR #### [address] [address] #### B12 #### [address] [address] GFR Non- 45 ml/min/1.73sqm Normal [facility] ([place]) Comment on above: Result Comment: GFR Population mean for , Non- Americans Ages 20-29 = 116 mL/min/1.73 sq.m. Ages 30-39 = 107 mL/min/1.73 sq.m. Ages 40-49 = 99 mL/min/1.73 sq.m. Ages 50-59 = 93 mL/min/1.73 sq.m. Ages 60-69 = 85 mL/min/1.73 sq.m. Ages 70+ = 75 mL/min/1.73 sq.m. Chronic Kidney Disease: Less than 60 mL/min/1.73 square meters End Stage Renal Disease: Less than 15 mL/min/1.73 square meters Performed By: #### C BC, LIPID, CMP, ANEU, FT4, TSH, PSA, URIC, ADIFF, A1C, GFR #### [address] [address] #### B12 #### [address] [address] .NEUABSon 05-29-2023 Neutrophil, Absolute 4.6 10 3/mcL Normal 2.9-6.2 [facility] ([place]) Comment on above: Performed By: #### C BC, LIPID, CMP, ANEU, FT4, TSH, PSA, URIC, ADIFF, A1C, GFR #### [address] [address] #### B12 #### [address] [address] A1Con 05-29-2023 HbA1c (Bld) [Mass fraction] 5.8 % Normal 4.3-6.4 [facility] ([place]) Comment on above: Performed By: #### C BC, LIPID, CMP, ANEU, FT4, TSH, PSA, URIC, ADIFF, A1C, GFR #### [address] [address] #### B12 #### [address] [address] B12on 05-29-2023 Cobalamin (Vitamin B12) [Mass/Vol] 343 pg/mL Normal 211-911 [facility] ([place]) Comment on above: Performed By: #### C BC, LIPID, CMP, ANEU, FT4, TSH, PSA, URIC, ADIFF, A1C, GFR #### [address] [address] #### B12 #### [address] [address] CBCon 05-29-2023 Erythrocyte distribution width (RBC) [Ratio] 13.9 % Normal 11.5-14.5 [facility] ([place]) Comment on above: Performed By: #### C BC, LIPID, CMP, ANEU, FT4, TSH, PSA, URIC, ADIFF, A1C, GFR #### [address] [address] #### B12 #### [address] [address] Hematocrit (Bld) [Volume fraction] 44.9 % Normal 42.0-52.0 [facility] ([place]) Comment on above: Performed By: #### C BC, LIPID, CMP, ANEU, FT4, TSH, PSA, URIC, ADIFF, A1C, GFR #### [address] [address] #### B12 #### [address] [address] Hgb 15.1 G/dL Normal 14.0-18.0 [facility] ([place]) Comment on above: Performed By: #### C BC, LIPID, CMP, ANEU, FT4, TSH, PSA, URIC, ADIFF, A1C, GFR #### [address] [address] #### B12 #### [address] [address] MCH (RBC) [Entitic mass] 32.0 pg High 27.0-31.2 [facility] ([place]) Comment on above: Performed By: #### C BC, LIPID, CMP, ANEU, FT4, TSH, PSA, URIC, ADIFF, A1C, GFR #### [place] [address] #### B12 #### [place] [address] MCHC 33.6 G/dL Normal 31.8-35.4 [facility] ([place]) Comment on above: Performed By: #### C BC, LIPID, CMP, ANEU, FT4, TSH, PSA, URIC, ADIFF, A1C, GFR #### [place] [address] #### B12 #### [place] [address] MCV (RBC) [Entitic vol] 95.2 fL High 80.0-94.0 A [facility] ([place]) Comment on above: Performed By: #### C BC, LIPID, CMP, ANEU, FT4, TSH, PSA, URIC, ADIFF, A1C, GFR #### [place] [address] #### B12 #### [place] [address] Platelet 297 10 3/mcL Normal 130-400 [facility] ([place]) Comment on above: Performed By: #### C BC, LIPID, CMP, ANEU, FT4, TSH, PSA, URIC, ADIFF, A1C, GFR #### [place] [address] #### B12 #### [place] [address] Platelet mean volume (Bld) [Entitic vol] 7.7 fL Normal 7.4-10.4 [facility] ([place]) Comment on above: Performed By: #### C BC, LIPID, CMP, ANEU, FT4, TSH, PSA, URIC, ADIFF, A1C, GFR #### [place] [address] #### B12 #### [place] [address] RBC 4.72 10 6/mcL Normal 4.04-6.13 [facility] ([place]) Comment on above: Performed By: #### C BC, LIPID, CMP, ANEU, FT4, TSH, PSA, URIC, ADIFF, A1C, GFR #### [address] [address] #### B12 #### [address] [address] WBC 6.7 10 3/mcL Normal 4.6-10.8 [facility] ([place]) Comment on above: Performed By: #### C BC, LIPID, CMP, ANEU, FT4, TSH, PSA, URIC, ADIFF, A1C, GFR #### [address] [address] #### B12 #### [address] 05-29-2023 Albumin Level 4.0 G/dL Normal 3.4-4.8 [facility] ([place]) Comment on above: Performed By: #### C BC, LIPID, CMP, ANEU, FT4, TSH, PSA, URIC, ADIFF, A1C, GFR #### [place] [address] #### B12 #### [address] [address] Albumin/Globulin [Mass ratio] 1.1 {ratio} Normal 1.1-2.5 [facility] ([place]) Comment on above: Performed By: #### C BC, LIPID, CMP, ANEU, FT4, TSH, PSA, URIC, ADIFF, A1C, GFR #### [place] [address] #### B12 #### [address] [address] ALP [Catalytic activity/Vol] 113 U/L Normal 40-135 [facility] ([place]) Comment on above: Performed By: #### C BC, LIPID, CMP, ANEU, FT4, TSH, PSA, URIC, ADIFF, A1C, GFR #### [address] [address] #### B12 #### [place] [id number] ALT [Catalytic activity/Vol] 43 U/L Normal 16-63 [facility] ([place]) Comment on above: Performed By: #### C BC, LIPID, CMP, ANEU, FT4, TSH, PSA, URIC, ADIFF, A1C, GFR #### [address] [address] #### B12 #### [address] [address] AST [Catalytic activity/Vol] 22 U/L Normal 10-40 [facility] ([place]) Comment on above: Performed By: #### C BC, LIPID, CMP, ANEU, FT4, TSH, PSA, URIC, ADIFF, A1C, GFR #### [address] [address] #### B12 #### [address] [address] Bili Total 0.7 mg/dL Normal 0.2-1.0 [facility] ([place]) Comment on above: Result Comment: Use of this assay is not recommended for patients undergoing treatment with eltrombopag due to the potential for falsely elevated results. Performed By: #### C BC, LIPID, CMP, ANEU, FT4, TSH, PSA, URIC, ADIFF, A1C, GFR #### [place] [address] #### B12 #### [address] [address] BUN/Creatinine Ratio 25 ratio Normal 7-27 [facility] ([place]) Comment on above: Performed By: #### C BC, LIPID, CMP, ANEU, FT4, TSH, PSA, URIC, ADIFF, A1C, GFR #### [address] [address] #### B12 #### [address] [address] Calcium [Mass/Vol] 9.2 mg/dL Normal 8.4-10.2 [facility] ([place]) Comment on above: Performed By: #### C BC, LIPID, CMP, ANEU, FT4, TSH, PSA, URIC, ADIFF, A1C, GFR #### [address] [address] #### B12 #### [address] [address] Chloride [Moles/Vol] 105 mmol/L Normal 98-107 [facility] ([place]) Comment on above: Performed By: #### C BC, LIPID, CMP, ANEU, FT4, TSH, PSA, URIC, ADIFF, A1C, GFR #### [place] [address] #### B12 #### [place] [address] CO2 [Moles/Vol] 26 mmol/L Normal 23-31 [facility] ([place]) Comment on above: Performed By: #### C BC, LIPID, CMP, ANEU, FT4, TSH, PSA, URIC, ADIFF, A1C, GFR #### [place] [address] #### B12 #### [place] [address] Creatinine [Mass/Vol] 1.51 mg/dL High 0.70-1.30 [facility] ([place]) Comment on above: Performed By: #### C BC, LIPID, CMP, ANEU, FT4, TSH, PSA, URIC, ADIFF, A1C, GFR #### [place] [address] #### B12 #### [place] [address] Electrolyte Balance 10.0 mEq/L Normal 4.0-15.0 [facility] ([place]) Comment on above: Performed By: #### C BC, LIPID, CMP, ANEU, FT4, TSH, PSA, URIC, ADIFF, A1C, GFR #### [place] [address] #### B12 #### [place] [address] Globulin 3.7 G/dL Normal [facility] ([place]) Comment on above: Performed By: #### C BC, LIPID, CMP, ANEU, FT4, TSH, PSA, URIC, ADIFF, A1C, GFR #### [address] [address] #### B12 #### [address] [address] Glucose [Mass/Vol] 150 mg/dL High 83-110 [facility] ([place]) Comment on above: Performed By: #### C BC, LIPID, CMP, ANEU, FT4, TSH, PSA, URIC, ADIFF, A1C, GFR #### [place] [address] #### B12 #### [address] [address] Potassium [Moles/Vol] 4.7 mmol/L Normal 3.5-5.1 [facility] ([place]) Comment on above: Performed By: #### C BC, LIPID, CMP, ANEU, FT4, TSH, PSA, URIC, ADIFF, A1C, GFR #### [place] [address] #### B12 #### [address] [address] Sodium [Moles/Vol] 141 mmol/L Normal 136-145 [facility] ([place]) Comment on above: Performed By: #### C BC, LIPID, CMP, ANEU, FT4, TSH, PSA, URIC, ADIFF, A1C, GFR #### [place] [address] #### B12 #### [address] [address] Total Protein 7.7 G/dL Normal 6.4-8.2 [facility] ([place]) Comment on above: Performed By: #### C BC, LIPID, CMP, ANEU, FT4, TSH, PSA, URIC, ADIFF, A1C, GFR #### [place] [address] #### B12 #### [address] [address] Urea nitrogen [Mass/Vol] 37 mg/dL High 7-18 [facility] ([place]) Comment on above: Performed By: #### C BC, LIPID, CMP, ANEU, FT4, TSH, PSA, URIC, ADIFF, A1C, GFR #### [place] [address] [place], [place] [address] #### B12 #### [address] [address] FT4on 05-29-2023 Free T4 [Mass/Vol] 0.79 ng/dL Normal 0.76-1.46 [facility] ([place]) Comment on above: Performed By: #### C BC, LIPID, CMP, ANEU, FT4, TSH, PSA, URIC, ADIFF, A1C, GFR #### [place] [address] [place], [place] [address] #### B12 #### [address] [address] LABORATORYOrdered By: SYSTEM SYSTEM on 05-29-2023 Albumin BCP dye [Mass/Vol] 4.0 G/dL Normal 3.4 - 4.8 G/dL AO ADM SS Albumin/Globulin [Mass ratio] 1.1 {ratio} Normal 1.1 - 2.5 ratio AO ADM SS ALP [Catalytic activity/Vol] 113 U/L Normal 40 - 135 U/L AO ADM SS ALT With P-5'-P [Catalytic activity/Vol] 43 U/L Normal 16 - 63 U/L AO ADM SS AST With P-5'-P [Catalytic activity/Vol] 22 U/L Normal 10 - 40 U/L AO ADM SS Basophil, Absolute 0.1 103/mcL Normal 0.0 - 0.2 10^3/mcL AO Workflow SS Basophils/100 WBC (Bld) 0.9 % Normal 0.0 - 2.5 % AO Workflow SS Bilirubin [Mass/Vol] 0.7 mg/dL Normal 0.2 - 1 .0 mg/dL AO ADM SS Comment on above: Interpretive Data: U se of this assay is not recommended for patients undergoing treatment with eltrombopag due to the potential for falsely elevated results. Calcium [Mass/Vol] 9.2 mg/dL Normal 8.4 - 10. 2 mg/dL AO ADM SS Chloride [Moles/Vol] 105 mmol/L Normal 98 - 10 7 mmol/L AO ADM SS CO2 [Moles/Vol] 26 mmol/L Normal 23 - 31 mmol/L AO ADM SS Cobalamin (Vitamin B12) [Mass/Vol] 343 pg/mL Normal 211 - 911 pg/mL AH ADM SS Creatinine [Mass/Vol] 1.51 mg/dL High 0.70 - 1.30 mg/dL AO ADM SS Electrolyte Balance 10.0 mEq/L Normal 4.0 - 15 .0 mEq/L AO ADM SS Eosinophil, Absolute 0.2 103/mcL Normal 0.0 - 0 .4 10^3/mcL AO Workflow SS Eosinophils/100 WBC (Bld) 3.0 % Normal 0.0 - 7.0 % AO Workflow SS Erythrocyte distribution width (RBC) [Ratio] 13.9 % Normal 11.5 - 14.5 % AO Workflow SS Free T4 [Mass/Vol] 0.79 ng/dL Normal 0.76 - 1. 46 ng/dL AO ADM SS GFR/1.73 sq M.predicted among blacks MDRD (S/P/Bld) [Vol rate/Area] 55 ml/min/1.73sqm Invalid Interpretation Code AO Chemistry S Comment on above: Interpretive Data: GFR Population mean for , Non- Americans Ages 20-29 = 116 mL/min/1.73 sq.m. Ages 30-39 = 107 mL/min/1.73 sq.m. Ages 40-49 = 99 mL/min/1.73 sq.m. Ages 50-59 = 93 mL/min/1.73 sq.m. Ages 60-69 = 85 mL/min/1.73 sq.m. Ages 70+ = 75 mL/min/1.73 sq.m. Chronic Kidney Disease: Less than 60 mL/min/1.73 square meters End Stage Renal Disease: Less than 15 mL/min/1.73 square meters GFR/1.73 sq M.predicted among non-blacks MDRD (S/P/Bld) [Vol rate/Area] 45 ml/min/1.73sqm Invalid Interpretation Code AO Chemistry S Comment on above: Interpretive Data: GFR Population mean for , Non- Americans Ages 20-29 = 116 mL/min/1.73 sq.m. Ages 30-39 = 107 mL/min/1.73 sq.m. Ages 40-49 = 99 mL/min/1.73 sq.m. Ages 50-59 = 93 mL/min/1.73 sq.m. Ages 60-69 = 85 mL/min/1.73 sq.m. Ages 70+ = 75 mL/min/1.73 sq.m. Chronic Kidney Disease: Less than 60 mL/min/1.73 square meters End Stage Renal Disease: Less than 15 mL/min/1.73 square meters Globulin 3.7 G/dL Invalid Interpretation Code AO ADM SS Glucose [Mass/Vol] 150 mg/dL High 83 - 110 mg/dL AO ADM SS HbA1c (Bld) [Mass fraction] 5.8 % Normal 4.3 - 6.4 % AO ADM SS Hematocrit (Bld) [Volume fraction] 44.9 % Normal 42.0 - 52.0 % AO Workflow SS Hemoglobin (Bld) [Mass/Vol] 15.1 G/dL Normal 14.0 - 18.0 G/dL AO Workflow SS Lymphocyte, Absolute 1.2 103/mcL Normal 0.8 - 3 .9 10^3/mcL AO Workflow SS Lymphocytes/100 WBC (Bld) 18.2 % Normal 10.0 - 50.0 % AO Workflow SS MCH (RBC) [Entitic mass] 32.0 pg High 27.0 - 31.2 pg AO Workflow SS MCHC 33.6 G/dL Normal 31.8 - 35.4 G/dL AO Workflow SS MCV (RBC) [Entitic vol] 95.2 fL High 80.0 - 94.0 fL AO Workflow SS Monocyte, Absolute 0.6 103/mcL Normal 0.2 - 1.0 10^3/mcL AO Workflow SS Monocytes/100 WBC (Bld) 8.4 % Normal 1.7 - 13.0 % AO Workflow SS Neutrophil, Absolute 4.6 103/mcL Normal 2.9 - 6 .2 10^3/mcL AO Workflow SS Neutrophils/100 WBC (Bld) 69.5 % Normal 37.0 - 80.0 % AO Workflow SS Platelet mean volume (Bld) [Entitic vol] 7.7 fL Normal 7.4 - 10.4 fL AO Workflow SS Platelets (Bld) [#/Vol] 297 103/mcL Normal 130 - 400 10^3/mcL AO Workflow SS Potassium [Moles/Vol] 4.7 mmol/L Normal 3.5 - 5.1 mmol/L AO ADM SS Prostate specific Ag [Mass/Vol] 1.82 ng/mL Normal 0.00 - 4.00 ng/mL AO ADM SS Protein [Mass/Vol] 7.7 G/dL Normal 6.4 - 8.2 G/dL AO ADM SS RBC (Bld) [#/Vol] 4.72 106/mcL Normal 4.04 - 6.1 3 10^6/mcL AO Workflow SS Sodium [Moles/Vol] 141 mmol/L Normal 136 - 145 mmol/L AO ADM SS TSH Qn 2.85 m[IU]/L Normal 0.36 - 3.74 mcIU/mL AO ADM SS Urea nitrogen [Mass/Vol] 37 mg/dL High 7 - 18 mg/dL AO ADM SS Urea nitrogen/Creatinine [Mass ratio] 25 ratio Normal 7 - 27 ratio AO ADM SS Uric Acid Lvl 5.1 mg/dL Normal 3.5 - 7.2 mg/dL AO ADM SS WBC (Bld) [#/Vol] 6.7 103/mcL Normal 4.6 - 10.8 10^3/mcL AO Workflow SS LABORATORYOrdered By: David Clarke on 05-29-2023 Cholesterol [Mass/Vol] 133 mg/dL Normal 0 - 2 00 mg/dL AO ADM SS Comment on above: Interpretive Data: C holesterol Reference Interval: Less than 200 Desirable 200-239 Borderline high risk 240 and above High risk Cholesterol in HDL [Mass/Vol] 33 mg/dL Low 40 - 60 mg/dL AO ADM SS Cholesterol in LDL [Mass/Vol] 58 mg/dL Normal 0 - 130 mg/dL AO ADM SS Triglyceride [Mass/Vol] 209 mg/dL High 0 - 150 mg/dL AO ADM SS Comment on above: Interpretive Data: T riglyceride Reference Interval: Less than 150 Normal 150-199 Borderline high risk 200-499 High risk 500 or higher Very high risk Albumin DL <= 20 mg/L (U) [Mass/Vol] 1605 mcg/dL Invalid Interpretation Code AO ADM SS Albumin/Creatinine DL <= 20 mg/L (U) [Mass ratio] 13 mcg/mg Normal 0 - 30 mcg/mg AO ADM SS Creatinine (U) [Mass/Vol] 125.6 mg/dL Normal 39.0 - 259.0 mg/dL AO ADM SS LIPIDon 05-29-2023 Cholesterol [Mass/Vol] 133 mg/dL Normal 0-200 [facility] ([place]) Comment on above: Result Comment: Chol esterol Reference Interval: Less than 200 Desirable 200-239 Borderline high risk 240 and above High risk Performed By: #### C BC, LIPID, CMP, ANEU, FT4, TSH, PSA, URIC, ADIFF, A1C, GFR #### [address] [address] #### B12 #### [address] [address] Cholesterol in HDL [Mass/Vol] 33 mg/dL Low 40-60 [facility] ([place]) Comment on above: Performed By: #### C BC, LIPID, CMP, ANEU, FT4, TSH, PSA, URIC, ADIFF, A1C, GFR #### [address] [address] #### B12 #### [address] [address] Cholesterol in LDL [Mass/Vol] 58 mg/dL Normal 0-130 [facility] ([place]) Comment on above: Performed By: #### C BC, LIPID, CMP, ANEU, FT4, TSH, PSA, URIC, ADIFF, A1C, GFR #### [address] [address] #### B12 #### [address] [address] Triglyceride [Mass/Vol] 209 mg/dL High 0-150 [facility] ([place]) Comment on above: Result Comment: Trig lyceride Reference Interval: Less than 150 Normal 150-199 Borderline high risk 200-499 High risk 500 or higher Very high risk Performed By: #### C BC, LIPID, CMP, ANEU, FT4, TSH, PSA, URIC, ADIFF, A1C, GFR #### [address] [address] [address] #### B12 #### [address] [address] MALBRon 05-29-2023 U Creatinine 125.6 mg/dL Normal 39.0-259.0 [facility] ([place]) Comment on above: Performed By: #### C BC, LIPID, CMP, ANEU, FT4, TSH, PSA, URIC, ADIFF, A1C, GFR #### [address] [address] #### B12 #### [address] [address] U Microalb 1605 mcg/dL Normal [facility] ([place]) Comment on above: Performed By: #### C BC, LIPID, CMP, ANEU, FT4, TSH, PSA, URIC, ADIFF, A1C, GFR #### [address] [address] #### B12 #### [place] [address] U Ratio Alb/Cre 13 mcg/mg Normal 0-30 [facility] ([place]) Comment on above: Performed By: #### C BC, LIPID, CMP, ANEU, FT4, TSH, PSA, URIC, ADIFF, A1C, GFR #### [place] [address] #### B12 #### [place] [address] PSAon 05-29-2023 Prostate Specific Antigen 1.82 ng/mL Normal 0.00-4.00 [facility] ([place]) Comment on above: Performed By: #### C BC, LIPID, CMP, ANEU, FT4, TSH, PSA, URIC, ADIFF, A1C, GFR #### [place] [address] #### B12 #### [place] [address] TSHon 05-29-2023 TSH Qn 2.85 m[IU]/L Normal 0.36-3.74 [facility] ([place]) Comment on above: Performed By: #### C BC, LIPID, CMP, ANEU, FT4, TSH, PSA, URIC, ADIFF, A1C, GFR #### [place] [address] #### B12 #### [address] [address] URICon 05-29-2023 Uric Acid Lvl 5.1 mg/dL Normal 3.5-7.2 [facility] ([place]) Comment on above: Performed By: #### C BC, LIPID, CMP, ANEU, FT4, TSH, PSA, URIC, ADIFF, A1C, GFR #### [address] [address] #### B12 #### [place] [address] .Auto Diffon 01-16-2023 Basophil, Absolute 0.1 10 3/mcL Normal 0.0-0.2 [facility] ([place]) Comment on above: Performed By: #### C BC, LIPID, CMP, ANEU, FT4, TSH, PSA, URIC, ADIFF, A1C, GFR #### [address] [address] #### B12 #### [place] [address] Basophils/100 WBC (Bld) 0.7 % Normal 0.0-2.5 [facility] ([place]) Comment on above: Performed By: #### C BC, LIPID, CMP, ANEU, FT4, TSH, PSA, URIC, ADIFF, A1C, GFR #### [address] [address] #### B12 #### [place] [address] Eosinophil, Absolute 0.1 10 3/mcL Normal 0.0-0.4 [facility] ([place]) Comment on above: Performed By: #### C BC, LIPID, CMP, ANEU, FT4, TSH, PSA, URIC, ADIFF, A1C, GFR #### [address] [address] #### B12 #### [address] [address] Eosinophils/100 WBC (Bld) 1.6 % Normal 0.0-7.0 [facility] ([place]) Comment on above: Performed By: #### C BC, LIPID, CMP, ANEU, FT4, TSH, PSA, URIC, ADIFF, A1C, GFR #### [place] [address] #### B12 #### [address] [address] Lymphocyte, Absolute 1.4 10 3/mcL Normal 0.8-3.9 [facility] ([place]) Comment on above: Performed By: #### C BC, LIPID, CMP, ANEU, FT4, TSH, PSA, URIC, ADIFF, A1C, GFR #### [place] [address] #### B12 #### [address] [address] Lymphocytes/100 WBC (Bld) 14.7 % Normal 10.0-50.0 [facility] ([place]) Comment on above: Performed By: #### C BC, LIPID, CMP, ANEU, FT4, TSH, PSA, URIC, ADIFF, A1C, GFR #### [place] [address] #### B12 #### [address] [address] Monocyte, Absolute 1.1 10 3/mcL High 0.2-1.0 [facility] ([place]) Comment on above: Performed By: #### C BC, LIPID, CMP, ANEU, FT4, TSH, PSA, URIC, ADIFF, A1C, GFR #### [place] [address] #### B12 #### [address] [address] Monocytes/100 WBC (Bld) 11.8 % Normal 1.7-13.0 [facility] ([place]) Comment on above: Performed By: #### C BC, LIPID, CMP, ANEU, FT4, TSH, PSA, URIC, ADIFF, A1C, GFR #### [place] [address] #### B12 #### [address] [address] Neutrophils/100 WBC (Bld) 71.2 % Normal 37.0-80.0 [facility] ([place]) Comment on above: Performed By: #### C BC, LIPID, CMP, ANEU, FT4, TSH, PSA, URIC, ADIFF, A1C, GFR #### [address] [address] #### B12 #### [address] [address] .GFRon 01-16-2023 GFR 50 ml/min/1.73sqm Normal [facility] ([place]) Comment on above: Result Comment: GFR Population mean for , Non- Americans Ages 20-29 = 116 mL/min/1.73 sq.m. Ages 30-39 = 107 mL/min/1.73 sq.m. Ages 40-49 = 99 mL/min/1.73 sq.m. Ages 50-59 = 93 mL/min/1.73 sq.m. Ages 60-69 = 85 mL/min/1.73 sq.m. Ages 70+ = 75 mL/min/1.73 sq.m. Chronic Kidney Disease: Less than 60 mL/min/1.73 square meters End Stage Renal Disease: Less than 15 mL/min/1.73 square meters Performed By: #### C BC, LIPID, CMP, ANEU, FT4, TSH, PSA, URIC, ADIFF, A1C, GFR #### [address] [address] #### B12 #### [address] [address] GFR Non- 42 ml/min/1.73sqm Normal [facility] ([place]) Comment on above: Result Comment: GFR Population mean for , Non- Americans Ages 20-29 = 116 mL/min/1.73 sq.m. Ages 30-39 = 107 mL/min/1.73 sq.m. Ages 40-49 = 99 mL/min/1.73 sq.m. Ages 50-59 = 93 mL/min/1.73 sq.m. Ages 60-69 = 85 mL/min/1.73 sq.m. Ages 70+ = 75 mL/min/1.73 sq.m. Chronic Kidney Disease: Less than 60 mL/min/1.73 square meters End Stage Renal Disease: Less than 15 mL/min/1.73 square meters Performed By: #### C BC, LIPID, CMP, ANEU, FT4, TSH, PSA, URIC, ADIFF, A1C, GFR #### [address] [address] #### B12 #### [address] [address] .NEUABSon 01-16-2023 Neutrophil, Absolute 6.6 10 3/mcL High 2.9-6.2 [facility] ([place]) Comment on above: Performed By: #### C BC, LIPID, CMP, ANEU, FT4, TSH, PSA, URIC, ADIFF, A1C, GFR #### [address] [address] #### B12 #### [place] [address] A1Con 01-16-2023 HbA1c (Bld) [Mass fraction] 6.0 % Normal 4.3-6.4 [facility] ([place]) Comment on above: Performed By: #### C BC, LIPID, CMP, ANEU, FT4, TSH, PSA, URIC, ADIFF, A1C, GFR #### [address] [address] #### B12 #### [address] [address] CBCon 01-16-2023 Erythrocyte distribution width (RBC) [Ratio] 14.6 % High 11.5-14.5 [facility] ([place]) Comment on above: Performed By: #### C BC, LIPID, CMP, ANEU, FT4, TSH, PSA, URIC, ADIFF, A1C, GFR #### [address] [address] #### B12 #### [place] [address] Hematocrit (Bld) [Volume fraction] 43.3 % Normal 42.0-52.0 [facility] ([place]) Comment on above: Performed By: #### C BC, LIPID, CMP, ANEU, FT4, TSH, PSA, URIC, ADIFF, A1C, GFR #### [place] [address] #### B12 #### [place] [address] Hgb 14.3 G/dL Normal 14.0-18.0 [facility] ([place]) Comment on above: Performed By: #### C BC, LIPID, CMP, ANEU, FT4, TSH, PSA, URIC, ADIFF, A1C, GFR #### [place] [address] #### B12 #### [place] [address] MCH (RBC) [Entitic mass] 31.5 pg High 27.0-31.2 [facility] ([place]) Comment on above: Performed By: #### C BC, LIPID, CMP, ANEU, FT4, TSH, PSA, URIC, ADIFF, A1C, GFR #### [place] [address] #### B12 #### [place] [address] MCHC 33.0 G/dL Normal 31.8-35.4 [facility] ([place]) Comment on above: Performed By: #### C BC, LIPID, CMP, ANEU, FT4, TSH, PSA, URIC, ADIFF, A1C, GFR #### [place] [address] #### B12 #### [place] [address] MCV (RBC) [Entitic vol] 95.4 fL High 80.0-94.0 A [facility] ([place]) Comment on above: Performed By: #### C BC, LIPID, CMP, ANEU, FT4, TSH, PSA, URIC, ADIFF, A1C, GFR #### [place] [address] #### B12 #### [place] [address] Platelet 366 10 3/mcL Normal 130-400 [facility] ([place]) Comment on above: Performed By: #### C BC, LIPID, CMP, ANEU, FT4, TSH, PSA, URIC, ADIFF, A1C, GFR #### [address] [address] #### B12 #### [place] [address] Platelet mean volume (Bld) [Entitic vol] 6.8 fL Low 7.4-10.4 [facility] ([place]) Comment on above: Performed By: #### C BC, LIPID, CMP, ANEU, FT4, TSH, PSA, URIC, ADIFF, A1C, GFR #### [place] [address] #### B12 #### [place] [address] RBC 4.53 10 6/mcL Normal 4.04-6.13 [facility] ([place]) Comment on above: Performed By: #### C BC, LIPID, CMP, ANEU, FT4, TSH, PSA, URIC, ADIFF, A1C, GFR #### [place] [address] #### B12 #### [place] [address] WBC 9.2 10 3/mcL Normal 4.6-10.8 [facility] ([place]) Comment on above: Performed By: #### C BC, LIPID, CMP, ANEU, FT4, TSH, PSA, URIC, ADIFF, A1C, GFR #### [place] [address] #### B12 #### [place] [address] CMPon 01-16-2023 Albumin Level 4.0 G/dL Normal 3.4-4.8 [facility] ([place]) Comment on above: Performed By: #### C BC, LIPID, CMP, ANEU, FT4, TSH, PSA, URIC, ADIFF, A1C, GFR #### [place] [address] #### B12 #### [place] [address] Albumin/Globulin [Mass ratio] 0.9 {ratio} Low 1.1-2.5 [facility] ([place]) Comment on above: Performed By: #### C BC, LIPID, CMP, ANEU, FT4, TSH, PSA, URIC, ADIFF, A1C, GFR #### [place] [address] #### B12 #### [place] [address] ALP [Catalytic activity/Vol] 107 U/L Normal 40-135 [facility] ([place]) Comment on above: Performed By: #### C BC, LIPID, CMP, ANEU, FT4, TSH, PSA, URIC, ADIFF, A1C, GFR #### [place] [address] #### B12 #### [place] [address] ALT [Catalytic activity/Vol] 30 U/L Normal 16-63 [facility] ([place]) Comment on above: Performed By: #### C BC, LIPID, CMP, ANEU, FT4, TSH, PSA, URIC, ADIFF, A1C, GFR #### [place] [address] #### B12 #### [place] [address] AST [Catalytic activity/Vol] 17 U/L Normal 10-40 [facility] ([place]) Comment on above: Performed By: #### C BC, LIPID, CMP, ANEU, FT4, TSH, PSA, URIC, ADIFF, A1C, GFR #### [place] [address] #### B12 #### [place] [address] Bili Total 0.8 mg/dL Normal 0.2-1.0 [facility] ([place]) Comment on above: Result Comment: Use of this assay is not recommended for patients undergoing treatment with eltrombopag due to the potential for falsely elevated results. Performed By: #### C BC, LIPID, CMP, ANEU, FT4, TSH, PSA, URIC, ADIFF, A1C, GFR #### [address] [address] #### B12 #### [address] [address] BUN/Creatinine Ratio 19 ratio Normal 7-27 [facility] ([place]) Comment on above: Performed By: #### C BC, LIPID, CMP, ANEU, FT4, TSH, PSA, URIC, ADIFF, A1C, GFR #### [address] [address] #### B12 #### [address] [address] Calcium [Mass/Vol] 9.8 mg/dL Normal 8.4-10.2 [facility] ([place]) Comment on above: Performed By: #### C BC, LIPID, CMP, ANEU, FT4, TSH, PSA, URIC, ADIFF, A1C, GFR #### [place] [address] #### B12 #### [address] [address] Chloride [Moles/Vol] 100 mmol/L Normal 98-107 [facility] ([place]) Comment on above: Performed By: #### C BC, LIPID, CMP, ANEU, FT4, TSH, PSA, URIC, ADIFF, A1C, GFR #### [place] [address] #### B12 #### [address] [address] CO2 [Moles/Vol] 25 mmol/L Normal 23-31 [facility] ([place]) Comment on above: Performed By: #### C BC, LIPID, CMP, ANEU, FT4, TSH, PSA, URIC, ADIFF, A1C, GFR #### [place] [address] #### B12 #### [place] [address] Creatinine [Mass/Vol] 1.63 mg/dL High 0.70-1.30 [facility] ([place]) Comment on above: Performed By: #### C BC, LIPID, CMP, ANEU, FT4, TSH, PSA, URIC, ADIFF, A1C, GFR #### [address] [address] #### B12 #### [address] [address] Electrolyte Balance 12.0 mEq/L Normal 4.0-15.0 [facility] ([place]) Comment on above: Performed By: #### C BC, LIPID, CMP, ANEU, FT4, TSH, PSA, URIC, ADIFF, A1C, GFR #### [place] [address] #### B12 #### [address] [address] Globulin 4.3 G/dL Normal [facility] ([place]) Comment on above: Performed By: #### C BC, LIPID, CMP, ANEU, FT4, TSH, PSA, URIC, ADIFF, A1C, GFR #### [place] [address] #### B12 #### [address] [address] Glucose [Mass/Vol] 137 mg/dL High 83-110 [facility] ([place]) Comment on above: Performed By: #### C BC, LIPID, CMP, ANEU, FT4, TSH, PSA, URIC, ADIFF, A1C, GFR #### [place] [address] #### B12 #### [address] [address] Potassium [Moles/Vol] 4.9 mmol/L Normal 3.5-5.1 [facility] ([place]) Comment on above: Performed By: #### C BC, LIPID, CMP, ANEU, FT4, TSH, PSA, URIC, ADIFF, A1C, GFR #### [place] [address] #### B12 #### [address] [address] Sodium [Moles/Vol] 137 mmol/L Normal 136-145 [facility] ([place]) Comment on above: Performed By: #### C BC, LIPID, CMP, ANEU, FT4, TSH, PSA, URIC, ADIFF, A1C, GFR #### [address] [address] #### B12 #### [address] [address] Total Protein 8.3 G/dL High 6.4-8.2 [facility] ([place]) Comment on above: Performed By: #### C BC, LIPID, CMP, ANEU, FT4, TSH, PSA, URIC, ADIFF, A1C, GFR #### [address] [address] #### B12 #### [place] [address] Urea nitrogen [Mass/Vol] 31 mg/dL High 7-18 [facility] ([place]) Comment on above: Performed By: #### C BC, LIPID, CMP, ANEU, FT4, TSH, PSA, URIC, ADIFF, A1C, GFR #### [address] [address] #### B12 #### [address] [address] LABORATORYOrdered By: SYSTEM SYSTEM on 01-16-2023 Albumin BCP dye [Mass/Vol] 4.0 G/dL Normal 3.4 - 4.8 G/dL AO ADM SS Albumin/Globulin [Mass ratio] 0.9 {ratio} Low 1.1 - 2.5 ratio AO ADM SS ALP [Catalytic activity/Vol] 107 U/L Normal 40 - 135 U/L AO ADM SS ALT With P-5'-P [Catalytic activity/Vol] 30 U/L Normal 16 - 63 U/L AO ADM SS AST With P-5'-P [Catalytic activity/Vol] 17 U/L Normal 10 - 40 U/L AO ADM SS Basophil, Absolute 0.1 103/mcL Normal 0.0 - 0.2 10^3/mcL AO Workflow SS Basophils/100 WBC (Bld) 0.7 % Normal 0.0 - 2.5 % AO Workflow SS Bilirubin [Mass/Vol] 0.8 mg/dL Normal 0.2 - 1 .0 mg/dL AO ADM SS Comment on above: Interpretive Data: U se of this assay is not recommended for patients undergoing treatment with eltrombopag due to the potential for falsely elevated results. Calcium [Mass/Vol] 9.8 mg/dL Normal 8.4 - 10. 2 mg/dL AO ADM SS Chloride [Moles/Vol] 100 mmol/L Normal 98 - 10 7 mmol/L AO ADM SS CO2 [Moles/Vol] 25 mmol/L Normal 23 - 31 mmol/L AO ADM SS Creatinine [Mass/Vol] 1.63 mg/dL High 0.70 - 1.30 mg/dL AO ADM SS Electrolyte Balance 12.0 mEq/L Normal 4.0 - 15 .0 mEq/L AO ADM SS Eosinophil, Absolute 0.1 103/mcL Normal 0.0 - 0 .4 10^3/mcL AO Workflow SS Eosinophils/100 WBC (Bld) 1.6 % Normal 0.0 - 7.0 % AO Workflow SS Erythrocyte distribution width (RBC) [Ratio] 14.6 % High 11.5 - 14.5 % AO Workflow SS GFR/1.73 sq M.predicted among blacks MDRD (S/P/Bld) [Vol rate/Area] 50 ml/min/1.73sqm Invalid Interpretation Code AO Chemistry S Comment on above: Interpretive Data: GFR Population mean for , Non- Americans Ages 20-29 = 116 mL/min/1.73 sq.m. Ages 30-39 = 107 mL/min/1.73 sq.m. Ages 40-49 = 99 mL/min/1.73 sq.m. Ages 50-59 = 93 mL/min/1.73 sq.m. Ages 60-69 = 85 mL/min/1.73 sq.m. Ages 70+ = 75 mL/min/1.73 sq.m. Chronic Kidney Disease: Less than 60 mL/min/1.73 square meters End Stage Renal Disease: Less than 15 mL/min/1.73 square meters GFR/1.73 sq M.predicted among non-blacks MDRD (S/P/Bld) [Vol rate/Area] 42 ml/min/1.73sqm Invalid Interpretation Code AO Chemistry S Comment on above: Interpretive Data: GFR Population mean for , Non- Americans Ages 20-29 = 116 mL/min/1.73 sq.m. Ages 30-39 = 107 mL/min/1.73 sq.m. Ages 40-49 = 99 mL/min/1.73 sq.m. Ages 50-59 = 93 mL/min/1.73 sq.m. Ages 60-69 = 85 mL/min/1.73 sq.m. Ages 70+ = 75 mL/min/1.73 sq.m. Chronic Kidney Disease: Less than 60 mL/min/1.73 square meters End Stage Renal Disease: Less than 15 mL/min/1.73 square meters Globulin 4.3 G/dL Invalid Interpretation Code AO ADM SS Glucose [Mass/Vol] 137 mg/dL High 83 - 110 mg/dL AO ADM SS HbA1c (Bld) [Mass fraction] 6.0 % Normal 4.3 - 6.4 % AO ADM SS Hematocrit (Bld) [Volume fraction] 43.3 % Normal 42.0 - 52.0 % AO Workflow SS Hemoglobin (Bld) [Mass/Vol] 14.3 G/dL Normal 14.0 - 18.0 G/dL AO Workflow SS Lymphocyte, Absolute 1.4 103/mcL Normal 0.8 - 3 .9 10^3/mcL AO Workflow SS Lymphocytes/100 WBC (Bld) 14.7 % Normal 10.0 - 50.0 % AO Workflow SS MCH (RBC) [Entitic mass] 31.5 pg High 27.0 - 31.2 pg AO Workflow SS MCHC 33.0 G/dL Normal 31.8 - 35.4 G/dL AO Workflow SS MCV (RBC) [Entitic vol] 95.4 fL High 80.0 - 94.0 fL AO Workflow SS Monocyte, Absolute 1.1 103/mcL High 0.2 - 1.0 10^3/mcL AO Workflow SS Monocytes/100 WBC (Bld) 11.8 % Normal 1.7 - 13.0 % AO Workflow SS Neutrophil, Absolute 6.6 103/mcL High 2.9 - 6 .2 10^3/mcL AO Workflow SS Neutrophils/100 WBC (Bld) 71.2 % Normal 37.0 - 80.0 % AO Workflow SS Platelet mean volume (Bld) [Entitic vol] 6.8 fL Low 7.4 - 10.4 fL AO Workflow SS Platelets (Bld) [#/Vol] 366 103/mcL Normal 130 - 400 10^3/mcL AO Workflow SS Potassium [Moles/Vol] 4.9 mmol/L Normal 3.5 - 5.1 mmol/L AO ADM SS Prostate specific Ag [Mass/Vol] 3.43 ng/mL Normal 0.00 - 4.00 ng/mL AO ADM SS Protein [Mass/Vol] 8.3 G/dL High 6.4 - 8.2 G/dL AO ADM SS RBC (Bld) [#/Vol] 4.53 106/mcL Normal 4.04 - 6.1 3 10^6/mcL AO Workflow SS Sodium [Moles/Vol] 137 mmol/L Normal 136 - 145 mmol/L AO ADM SS Urea nitrogen [Mass/Vol] 31 mg/dL High 7 - 18 mg/dL AO ADM SS Urea nitrogen/Creatinine [Mass ratio] 19 ratio Normal 7 - 27 ratio AO ADM SS WBC (Bld) [#/Vol] 9.2 103/mcL Normal 4.6 - 10.8 10^3/mcL AO Workflow SS PSAon 01-16-2023 Prostate Specific Antigen 3.43 ng/mL Normal 0.00-4.00 [facility] ([place]) Comment on above: Performed By: #### C BC, LIPID, CMP, ANEU, FT4, TSH, PSA, URIC, ADIFF, A1C, GFR #### [address] [address] #### B12 #### [place] [address] LABORATORYOrdered By: SYSTEM SYSTEM on 05-18-2022 Albumin BCP dye [Mass/Vol] 4.3 G/dL Invalid Interpretation Code 3.4 - 4.8 G/dL AO ADM SS Albumin/Globulin [Mass ratio] 1.1 {ratio} Invalid Interpretation Code 1.1 - 2.5 ratio AO ADM SS ALP [Catalytic activity/Vol] 101 U/L Invalid Interpretation Code 40 - 135 U/L AO ADM SS ALT With P-5'-P [Catalytic activity/Vol] 32 U/L Invalid Interpretation Code 16 - 63 U/L AO ADM SS AST With P-5'-P [Catalytic activity/Vol] 20 U/L Invalid Interpretation Code 10 - 40 U/L AO ADM SS Bilirubin [Mass/Vol] 0.8 mg/dL Invalid Interpretation Code 0.2 - 1.0 mg/dL AO ADM SS Calcium [Mass/Vol] 9.9 mg/dL Invalid Interpretation Code 8.4 - 10.2 mg/dL AO ADM SS Chloride [Moles/Vol] 101 mmol/L Invalid Interpretation Code 98 - 107 mmol/L AO ADM SS CO2 [Moles/Vol] 25 mmol/L Invalid Interpretation Code 23 - 31 mmol/L AO ADM SS Creatinine [Mass/Vol] 1.39 mg/dL Invalid Interpretation Code 0.70 - 1.30 mg/dL AO ADM SS Electrolyte Balance 12.0 mEq/L Invalid Interpretation Code 4.0 - 15.0 mEq/L AO ADM SS Free T4 [Mass/Vol] 0.91 ng/dL Invalid Interpretation Code 0.76 - 1.46 ng/dL AO ADM SS GFR 61 ml/min/1.73sqm Invalid Interpretation Code AO Chemistry S GFR Non- 50 ml/min/1.73sqm Invalid Interpretation Code AO Chemistry S Globulin 4.0 G/dL Invalid Interpretation Code AO ADM SS Glucose [Mass/Vol] 97 mg/dL Invalid Interpretation Code 83 - 110 mg/dL AO ADM SS HbA1c (Bld) [Mass fraction] 6.0 % Invalid Interpretation Code 4.3 - 6.4 % AO ADM SS Potassium [Moles/Vol] 5.3 mmol/L Invalid Interpretation Code 3.5 - 5.1 mmol/L AO ADM SS Prostate specific Ag [Mass/Vol] 3.45 ng/mL Invalid Interpretation Code 0.00 - 4.00 ng/mL AO ADM SS Protein [Mass/Vol] 8.3 G/dL Invalid Interpretation Code 6.4 - 8.2 G/dL AO ADM SS Sodium [Moles/Vol] 138 mmol/L Invalid Interpretation Code 136 - 145 mmol/L AO ADM SS TSH Qn 2.89 m[IU]/L Invalid Interpretation Code 0.36 - 3.74 mcIU/mL AO ADM SS Urea nitrogen [Mass/Vol] 24 mg/dL Invalid Interpretation Code 7 - 18 mg/dL AO ADM SS Urea nitrogen/Creatinine [Mass ratio] 17 ratio Invalid Interpretation Code 7 - 27 ratio AO ADM SS LABORATORYOrdered By: Carline Berrios on 05-18-2022 Basophil, Absolute 0.1 103/mcL Invalid Interpretation Code 0.0 - 0.2 10^3/mcL AO Workflow SS Basophils/100 WBC (Bld) 0.7 % Invalid Interpretation Code 0.0 - 2.5 % AO Workflow SS Eosinophil, Absolute 0.2 103/mcL Invalid Interpretation Code 0.0 - 0.4 10^3/mcL AO Workflow SS Eosinophils/100 WBC (Bld) 2.1 % Invalid Interpretation Code 0.0 - 7.0 % AO Workflow SS Erythrocyte distribution width (RBC) [Ratio] 13.8 % Invalid Interpretation Code 11.5 - 14.5 % AO Workflow SS Hematocrit (Bld) [Volume fraction] 42.6 % Invalid Interpretation Code 42.0 - 52.0 % AO Workflow SS Hemoglobin (Bld) [Mass/Vol] 14.0 G/dL Invalid Interpretation Code 14.0 - 18.0 G/dL AO Workflow SS Lymphocyte, Absolute 1.2 103/mcL Invalid Interpretation Code 0.8 - 3.9 10^3/mcL AO Workflow SS Lymphocytes/100 WBC (Bld) 14.6 % Invalid Interpretation Code 10.0 - 50.0 % AO Workflow SS MCH (RBC) [Entitic mass] 30.4 pg Invalid Interpretation Code 27.0 - 31.2 pg AO Workflow SS MCHC 32.8 G/dL Invalid Interpretation Code 31.8 - 35.4 G/dL AO Workflow SS MCV (RBC) [Entitic vol] 92.6 fL Invalid Interpretation Code 80.0 - 94.0 fL AO Workflow SS Monocyte, Absolute 0.7 103/mcL Invalid Interpretation Code 0.2 - 1.0 10^3/mcL AO Workflow SS Monocytes/100 WBC (Bld) 8.4 % Invalid Interpretation Code 1.7 - 13.0 % AO Workflow SS Neutrophil, Absolute 6.2 103/mcL Invalid Interpretation Code 2.9 - 6.2 10^3/mcL AO Workflow SS Neutrophils/100 WBC (Bld) 74.2 % Invalid Interpretation Code 37.0 - 80.0 % AO Workflow SS Platelet mean volume (Bld) [Entitic vol] 7.3 fL Invalid Interpretation Code 7.4 - 10.4 fL AO Workflow SS Platelets (Bld) [#/Vol] 366 103/mcL Invalid Interpretation Code 130 - 400 10^3/mcL AO Workflow SS RBC (Bld) [#/Vol] 4.60 106/mcL Invalid Interpretation Code 4.04 - 6.13 10^6/mcL AO Workflow SS WBC (Bld) [#/Vol] 8.3 103/mcL Invalid Interpretation Code 4.6 - 10.8 10^3/mcL AO Workflow SS LABORATORYOrdered By: Barby Pulliam on 05-18-2022 Cholesterol [Mass/Vol] 183 mg/dL Invalid Interpretation Code 0 - 200 mg/dL AO ADM SS Cholesterol in HDL [Mass/Vol] 45 mg/dL Invalid Interpretation Code 40 - 60 mg/dL AO ADM SS Cholesterol in LDL [Mass/Vol] 104 mg/dL Invalid Interpretation Code 0 - 130 mg/dL AO ADM SS Triglyceride [Mass/Vol] 172 mg/dL Invalid Interpretation Code 0 - 150 mg/dL AO ADM SS LABORATORYOrdered By: Barby Cross on 11-24-2021 Albumin DL <= 20 mg/L (U) [Mass/Vol] 2457 mcg/dL Invalid Interpretation Code AO ADM SS Albumin/Creatinine DL <= 20 mg/L (U) [Mass ratio] 31 mcg/mg Invalid Interpretation Code 0 - 30 mcg/mg AO ADM SS Creatinine (U) [Mass/Vol] 79.2 mg/dL Invalid Interpretation Code 39.0 - 259.0 mg/dL AO ADM SS Prostate specific Ag [Mass/Vol] 4.15 ng/mL Invalid Interpretation Code 0.00 - 4.00 ng/mL AO ADM SS LABORATORYOrdered By: Roma Julien on 03-16-2021 Albumin BCP dye [Mass/Vol] 4.4 G/dL Invalid Interpretation Code 3.4 - 4.8 G/dL AO ADM SS Albumin/Globulin [Mass ratio] 1.2 {ratio} Invalid Interpretation Code 1.1 - 2.5 ratio AO ADM SS ALP [Catalytic activity/Vol] 83 U/L Invalid Interpretation Code 40 - 135 U/L AO ADM SS ALT With P-5'-P [Catalytic activity/Vol] 31 U/L Invalid Interpretation Code 16 - 63 U/L AO ADM SS AST With P-5'-P [Catalytic activity/Vol] 19 U/L Invalid Interpretation Code 10 - 40 U/L AO ADM SS Bilirubin [Mass/Vol] 1.6 mg/dL Invalid Interpretation Code 0.2 - 1.0 mg/dL AO ADM SS Calcium [Mass/Vol] 9.6 mg/dL Invalid Interpretation Code 8.4 - 10.2 mg/dL AO ADM SS Chloride [Moles/Vol] 100 mmol/L Invalid Interpretation Code 98 - 107 mmol/L AO ADM SS Cholesterol [Mass/Vol] 164 mg/dL Invalid Interpretation Code 0 - 200 mg/dL AO ADM SS Cholesterol in HDL [Mass/Vol] 54 mg/dL Invalid Interpretation Code 40 - 60 mg/dL AO ADM SS Cholesterol in LDL [Mass/Vol] 89 mg/dL Invalid Interpretation Code 0 - 130 mg/dL AO ADM SS CO2 [Moles/Vol] 28 mmol/L Invalid Interpretation Code 23 - 31 mmol/L AO ADM SS Creatinine [Mass/Vol] 1.72 mg/dL Invalid Interpretation Code 0.70 - 1.30 mg/dL AO ADM SS Electrolyte Balance 11.0 mEq/L Invalid Interpretation Code 4.0 - 15.0 mEq/L AO ADM SS Globulin 3.6 G/dL Invalid Interpretation Code AO ADM SS Glucose [Mass/Vol] 114 mg/dL Invalid Interpretation Code 83 - 110 mg/dL AO ADM SS Potassium [Moles/Vol] 4.7 mmol/L Invalid Interpretation Code 3.5 - 5.1 mmol/L AO ADM SS Protein [Mass/Vol] 8.0 G/dL Invalid Interpretation Code 6.4 - 8.2 G/dL AO ADM SS Sodium [Moles/Vol] 139 mmol/L Invalid Interpretation Code 136 - 145 mmol/L AO ADM SS Triglyceride [Mass/Vol] 105 mg/dL Invalid Interpretation Code 0 - 150 mg/dL AO ADM SS Urea nitrogen [Mass/Vol] 39 mg/dL Invalid Interpretation Code 7 - 18 mg/dL AO ADM SS Urea nitrogen/Creatinine [Mass ratio] 23 ratio Invalid Interpretation Code 7 - 27 ratio AO ADM SS LABORATORYOrdered By: Oneil Valadez on 03-16-2021 Basophil, Absolute 0.10 103/mcL Invalid Interpretation Code 0.00 - 0.19 10^3/mcL AO Auto Heme SS Basophils/100 WBC (Bld) 0.8 % Invalid Interpretation Code 0.0 - 2.5 % AO Auto Heme SS Eosinophil, Absolute 0.10 103/mcL Invalid Interpretation Code 0.00 - 0.40 10^3/mcL AO Auto Heme SS Eosinophils/100 WBC (Bld) 1.4 % Invalid Interpretation Code 0.0 - 7.0 % AO Auto Heme SS Erythrocyte distribution width (RBC) [Ratio] 13.5 % Invalid Interpretation Code 11.5 - 14.5 % AO Auto Heme SS Hematocrit (Bld) [Volume fraction] 44.1 % Invalid Interpretation Code 42.0 - 52.0 % AO Auto Heme SS Hemoglobin (Bld) [Mass/Vol] 14.9 G/dL Invalid Interpretation Code 14.0 - 18.0 G/dL AO Auto Heme SS Lymphocyte, Absolute 1.20 103/mcL Invalid Interpretation Code 0.77 - 3.85 10^3/mcL AO Auto Heme SS Lymphocytes/100 WBC (Bld) 13.6 % Invalid Interpretation Code 10.0 - 50.0 % AO Auto Heme SS MCH (RBC) [Entitic mass] 32.3 pg Invalid Interpretation Code 27.0 - 31.2 pg AO Auto Heme SS MCHC (RBC) [Mass/Vol] 33.8 G/dL Invalid Interpretation Code 31.8 - 35.4 G/dL AO Auto Heme SS MCV (RBC) [Entitic vol] 95.5 fL Invalid Interpretation Code 80.0 - 94.0 fL AO Auto Heme SS Monocyte, Absolute 0.70 103/mcL Invalid Interpretation Code 0.15 - 1.00 10^3/mcL AO Auto Heme SS Monocytes/100 WBC (Bld) 8.6 % Invalid Interpretation Code 1.7 - 13.0 % AO Auto Heme SS Neutrophil, Absolute 6.40 103/mcL Invalid Interpretation Code 2.85 - 6.16 10^3/mcL AO Auto Heme SS Neutrophils/100 WBC (Bld) 75.6 % Invalid Interpretation Code 37.0 - 80.0 % AO Auto Heme SS Platelet mean volume (Bld) [Entitic vol] 6.9 fL Invalid Interpretation Code 7.4 - 10.4 fL AO Auto Heme SS Platelets (Bld) [#/Vol] 368 103/mcL Invalid Interpretation Code 130 - 400 10^3/mcL AO Auto Heme SS RBC (Bld) [#/Vol] 4.62 106/mcL Invalid Interpretation Code 4.04 - 6.13 10^6/mcL AO Auto Heme SS WBC (Bld) [#/Vol] 8.50 103/mcL Invalid Interpretation Code 4.60 - 10.80 10^3/mcL AO Auto Heme SS LABORATORYOrdered By: SYSTEM SYSTEM on 03-16-2021 GFR 48 ml/min/1.73sqm Invalid Interpretation Code AO Chemistry S GFR Non- 39 ml/min/1.73sqm Invalid Interpretation Code AO Chemistry S 12 Lead EKGon 07-31-[address] [facility] Cardi[facility] Services [address] [place] [address] 12 Lead EKG 07/31/20 2100 MR#: [id number] Acct: [id number] Name: ALEXANDER MIRANDA Rep #: [id number] : 1950 69 From: Arabella Reinoso MD Attending Dr: Status: DEP ER Ordering Dr: Alfie Dennis DO Date: 07/31/20 Location: ED Sex: M C Admitted: Test Reason : GENERAL ILLNESS Blood Pressure : / mmHG Vent. Rate : 096 BPM Atrial Rate : 096 BPM P-R Int : 222 ms QRS Dur : 096 ms QT Int : 338 ms P-R-T Axes : 073 063 037 degrees QTc Int : 427 ms Sinus rhythm with 1st degree A-V block Septal infarct , age undetermined Abnormal ECG Confirmed by FRANKI GLOVER, FATOU ([id number]), newspaper editor managing ROMA IRAHETA ([id number]) on 08/02/2020 10:44:39 AM Referred By: JW Confirmed By:SUSANNAH REINOSO MD 08/02/20 1044 Date Arabella Reinoso MD CC: Dr. Judah Price MD; Dr. Alfie Dennis DO Signed Normal [facility] CBC W/Diff, Automatedon 07-13 Absolute Lymph 1.11 X10 3/uL Normal 0.83-4.[address] [facility] Comment on above: Performed By: #### L 500.4050, L501.4010, L100.0100 #### [facility] [address] [place], [address] Absolute Neut 4.5 X10 3/uL Normal 2.0-7.[address] [facility] Comment on above: Performed By: #### L 500.4050, L501.4010, L100.0100 #### [facility] [address] [place], [address] Basophils/100 WBC (Bld) 0.5 % Normal 0-1 [facility] Comment on above: Performed By: #### L 500.4050, L501.4010, L100.0100 #### [facility] [address] [place], [address] Eosinophils/100 WBC (Bld) 2.3 % Normal 0-[address] [facility] Comment on above: Performed By: #### L 500.4050, L501.4010, L100.0100 #### [facility] [address] [place], [address] Erythrocyte distribution width (RBC) [Ratio] 12.4 % Normal 11.6-14.[address] [facility] Comment on above: Performed By: #### L 500.4050, L501.4010, L100.0100 #### [facility] [address] [place], [address] Hematocrit (Bld) [Volume fraction] 40.7 % Normal 40-[address] [facility] Comment on above: Performed By: #### L 500.4050, L501.4010, L100.0100 #### [facility] [address] [place], [address] Hemoglobin (Bld) [Mass/Vol] 13.1 g/dL Normal 13.0-16.[address] [facility] Comment on above: Performed By: #### L 500.4050, L501.4010, L100.0100 #### [facility] [address] [place], [address] IG% 0.500 Normal 0.0-0.[address] [facility] Comment on above: Result Comment: IG% - Immature Granulocytes (promyelocytes, myelocytes and metamyelocytes) > 1% indicates that a LEFT SHIFT is Present. Performed By: #### L 500.4050, L501.4010, L100.0100 #### [facility] [address] [place], [address] Lymphocytes/100 WBC (Bld) 16.8 % Low 19-[address] [facility] Comment on above: Performed By: #### L 500.4050, L501.4010, L100.0100 #### [facility] [address] [place], [address] MCH (RBC) [Entitic mass] 31.8 pg Normal 27.0-32.[address] [facility] Comment on above: Performed By: #### L 500.4050, L501.4010, L100.0100 #### [facility] [address] [place], [address] MCHC (RBC) [Mass/Vol] 32.2 g/dL Normal 32-36 [facility] Comment on above: Performed By: #### L 500.4050, L501.4010, L100.0100 #### [facility] [address] [place], [address] MCV (RBC) [Entitic vol] 98.8 fL High 80-94 [facility] Comment on above: Performed By: #### L 500.4050, L501.4010, L100.0100 #### [facility] [address] [place], [address] Monocytes/100 WBC (Bld) 11.9 % High 0-10 [facility] Comment on above: Performed By: #### L 500.4050, L501.4010, L100.0100 #### [facility] [address] [place], [address] Neutrophils/100 WBC (Bld) 68.0 % Normal 47-[address] [facility] Comment on above: Performed By: #### L 500.4050, L501.4010, L100.0100 #### [facility] [address] [place] [address] Nucleated RBC (Bld) [#/Vol] 0 10*3/uL Normal 0-[address] [facility] Comment on above: Performed By: #### L 500.4050, L501.4010, L100.0100 #### [facility] [address] [place], [address] Platelet mean volume (Bld) [Entitic vol] 8.3 fL Normal 6.2-12.[address] [facility] Comment on above: Performed By: #### L 500.4050, L501.4010, L100.0100 #### [facility] [address] [place], [address] Platelets (Bld) [#/Vol] 329 10*3/uL Normal 150-[address] [facility] Comment on above: Performed By: #### L 500.4050, L501.4010, L100.0100 #### [facility] [address] [place], [address] RBC (Bld) [#/Vol] 4.12 10*6/uL Low 4.6-6.[address] [facility] Comment on above: Performed By: #### L 500.4050, L501.4010, L100.0100 #### [facility] [address] [place], [address] RDW SD 45.8 fl High 35.1-43.[address] [facility] Comment on above: Performed By: #### L 500.4050, L501.4010, L100.0100 #### [facility] [address] [place], [address] WBC (Bld) [#/Vol] 6.6 10*3/uL Normal 4.4-11.[address] [facility] Comment on above: Performed By: #### L 500.4050, L501.4010, L100.0100 #### [facility] [address] [place], [address] Chest 1 View (Portable)on Chest 1 View (Portable) [facility] Imaging Services [address] [place] [address] Chest 1 View (Portable) MR#: [id number] Acct: [id number] Name: ALEXANDER MIRANDA Rep #: [id number] : 1950 M 69 From: Santiago Krueger PCP: Dr. Judah Price MD Status: [facility] ER Study: Chest 1 View (Portable) Date of Exam: 07/31/20 Exam# [id number] Ordering Dr: Alfie Dennis DO STUDY: X-RAY CHEST REASON FOR EXAM: Male, 69 years old. Palpitations TECHNIQUE: Single frontal view of the chest. COMPARISON: None. FINDINGS: The lungs are clear and expanded. There is no demonstrated pleural abnormality. Normal size heart. Normal mediastinum and charles. Normal visualized pulmonary arteries. Normal visualized aortic arch and descending thoracic aorta. Normal visualized thoracic spine. Multiple rib fractures on the right, age indeterminate. Old clavicles Fracture on the right. There is no demonstrated abnormality of the visualized soft tissue structures of the upper abdomen. RAD/Chest 1 View (Portable) IMPRESSION: Multiple right ribs fractures, age indeterminate. Otherwise no acute disease.. Electronically Signed: Santiago Gongora MD at 21:51 EDT , Service support , CC: Dr. Judah Price MD; Dr. Alfie Dennis DO Digital Commentator: Signed Normal [facility] Comprehensive Metabolic Prof ilon 07-31-2020 Albumin [Mass/Vol] 3.8 g/dL Normal 3.2-5.[address] [facility] Comment on above: Performed By: #### L 500.4050, L501.4010, L100.0100 #### [facility] [address] [place], [address] Albumin/Globulin [Mass ratio] 0.9 {ratio} Normal 0.9-2.[address] [facility] Comment on above: Performed By: #### L 500.4050, L501.4010, L100.0100 #### [facility] [address] [place], [address] ALK P 92 U/L Normal 45-[address] [facility] Comment on above: Performed By: #### L 500.4050, L501.4010, L100.0100 #### [facility] [address] [place], [address] ALT [Catalytic activity/Vol] 25 U/L Normal 16-[address] [facility] Comment on above: Performed By: #### L 500.4050, L501.4010, L100.0100 #### [facility] [address] [place], [address] AST [Catalytic activity/Vol] 17 U/L Normal 15-[address] [facility] Comment on above: Performed By: #### L 500.4050, L501.4010, L100.0100 #### [facility] [address] [place], [address] Bilirubin [Mass/Vol] 0.70 mg/dL Normal 0.20-1.00 [facility] Comment on above: Result Comment: For patients on eltrombopag therapy, use of Dimension [place] TBIL is not recommended. Performed By: #### L 500.4050, L501.4010, L100.0100 #### [facility] [address] [place], [address] BUN/CRE 16.8 RATIO Normal 10-[address] [facility] Comment on above: Performed By: #### L 500.4050, L501.4010, L100.0100 #### [facility] [address] [place], [address] CA,Total 8.9 mg/dL Normal 8.5-10.[address] [facility] Comment on above: Performed By: #### L 500.4050, L501.4010, L100.0100 #### [facility] [address] [place], [address] Chloride [Moles/Vol] 101 mmol/L Normal 98-107 [facility] Comment on above: Performed By: #### L 500.4050, L501.4010, L100.0100 #### [facility] [address] [place], [address] CO2 [Moles/Vol] 28.0 mmol/L Normal 21.0-32.[address] [facility] Comment on above: Performed By: #### L 500.4050, L501.4010, L100.0100 #### [facility] [address] [place], [address] Creatinine [Mass/Vol] 1.49 mg/dL High 0.70-1.30 [facility] Comment on above: Result Comment: The validity of the calculated GFR GFRAA in patients over 70 years has not been determined. Clinical correlation is essential. Performed By: #### L 500.4050, L501.4010, L100.0100 #### [facility] [address] [place], [address] ECRCL 43.99 ml/min Normal [facility] Comment on above: Performed By: #### L 500.4050, L501.4010, L100.0100 #### [facility] [address] [place], [address] EST GFR - AA 60 mL/min Normal >[address] [facility] Comment on above: Result Comment: Afri can [place] GFR Calc Performed By: #### L 500.4050, L501.4010, L100.0100 #### [facility] [address] [place], [address] GAP 8 Normal 5-[address] [facility] Comment on above: Performed By: #### L 500.4050, L501.4010, L100.0100 #### [facility] [address] [place], [address] GFR/1.73 sq M.predicted among non-blacks MDRD (S/P/Bld) [Vol rate/Area] 49 mL/min/{1.73_m2} Low >[address] [facility] Comment on above: Result Comment: Non- GFR Calc Performed By: #### L 500.4050, L501.4010, L100.0100 #### [facility] [address] [place], [address] Globulin (S) [Mass/Vol] 4.1 g/dL Normal 2.2-4.2 [facility] Comment on above: Performed By: #### L 500.4050, L501.4010, L100.0100 #### [facility] [address] [place], [address] Glucose [Mass/Vol] 143 mg/dL High 74-[address] [facility] Comment on above: Result Comment: Fast ing Glucose result greater than or equal to 126 mg/dL suggests DIABETES MELLITUS per A.D.A. criteria. Please note revised GLUCOSE reference range effective 2017. Performed By: #### L 500.4050, L501.4010, L100.0100 #### [facility] [address] [place], [address] Potassium [Moles/Vol] 4.3 mmol/L Normal 3.5-5.1 [facility] Comment on above: Performed By: #### L 500.4050, L501.4010, L100.0100 #### [facility] [address] [place], [address] Sodium [Moles/Vol] 137 mmol/L Normal 136-[address] [facility] Comment on above: Performed By: #### L 500.4050, L501.4010, L100.0100 #### [facility] [address] [place], [address] T PROT 7.9 g/dL Normal 6.4-8.[address] [facility] Comment on above: Performed By: #### L 500.4050, L501.4010, L100.0100 #### [facility] [address] [place], [address] Urea nitrogen [Mass/Vol] 25 mg/dL High 7-[address] [facility] Comment on above: Performed By: #### L 500.4050, L501.4010, L100.0100 #### [facility] [address] [place], [address] Emergency Department Summary on 07-31-2020 Emergency Department Summary [facility] Medical Records Department [address] [place] [address] Emergency Department Summary 07/31/20 MR#: [id number] Acct: [id number] Name: ALEXANDER MIRANDA Rep #: [id number] : 1950 69 From: Alfie Dennis DO PCP: Dr. Judah Price MD Status:DEP ER Location: ED HPI History of Present Illness Chief Complaint: General Illness Informant: patient Onset/Context/Timing Onset: Today Context: Sudden Onset Timing: Continuous Quality: Lightheaded Location: Generalized Worsened by: Standing Relieved by: Nothing Narrative Narrative: Patient presents with dizziness that began today. Patient states he feels lightheaded. Patient states this is worse with standing. Patient states he remembered to take his blood pressure medicines approximately 1 to 2 hours prior to arrival. Patient states he normally takes them in the morning. Patient states he forgot to take them this morning. Patient states nothing seems to help with the symptoms. Patient denies any chest pain. Patient denies any shortness of breath. Patient denies any nausea or vomiting. Patient denies any headaches. PFSH PFSH Medical History Acute kidney injury Alcohol abuse Atherosclerosis of coronary artery of [place] heart without angina pectoris Colon cancer Colon polyps ( 2001) CVA (cerebral vascular accident) ( 2014) Essential hypertension Gout Hyperlipidemia NSTEMI (non-ST elevated myocardial infarction) ( 09/16/15) Raynauds disease Upper GI bleeding Home Medications atorvastatin 40 mg PO QHS 06/03/18 [History Last Taken Unknown] losartan 50 mg PO DAILY 06/03/18 [History Last Taken Unknown] sildenafil [Viagra] 25 mg PO DAILY PRN 06/03/18 [History Last Taken Unknown] Allergy/AdvReac Type Severity Reaction Status Date / Time No Known Allergies Allergy Verified 08/07/18 11:38 Family History Father , Age 67 Cancer Mother CVA (cerebral vascular accident) Surgical History History of benign colon tumor Presence of stent in coronary artery Social History Smoking Status: Former smoker how long ago did patient quit smokin alcohol intake: current alcohol intake frequency: 3 or more drinks per day Alcohol type: beer substance use type: does not use caffeine: Yes Type: coffee ROS ROS ED Constitutional Constitutional ED: Denies chills or fever(s) Eyes Eyes: Denies blurry vision or change in vision ENT ENT ED: Denies rhinorrhea or sore throat Cardiovascular Cardiovascular: Denies chest pain or palpitations Respiratory/Chest Respiratory/Chest: Denies cough or dyspnea Gastrointestinal Gastrointestinal: Denies nausea or vomiting Genitourinary Genitourinary ED: Denies dysuria or hematuria Musculoskeletal Musculoskeletal: Denies back pain or neck pain Integumentary Denies abscess or rash Neurologic Neurologic: Denies headache(s) or weakness Allergic/Immunologic Allergic/Immunologic ED: Denies mouth swelling or urticaria EXAM Physical Exam Const Vital Signs: 07/31/20 20:29 07/31/20 20:37 07/31/20 21:36 Temperature 99.4 F H Temperature Source Temporal Pulse Rate 103 H Pulse Rate [Lying] 86 Pulse Rate [Sitting] 86 Pulse Rate [Standing] 82 Respiratory Rate 20 H Respiratory Effort Normal Respiratory Pattern Normal Blood Pressure 203/103 H Blood Pressure [Lying] 190/101 H Blood Pressure [Sitting] 185/102 H Blood Pressure [Standing] 191/100 H Blood Pressure Mean 136 Blood Pressure Mean [Lying] 130 Blood Pressure Mean [Sitting] 129 Blood Pressure Mean [Standing] 130 Pulse Ox 98 Oxygen Delivery Method Room Air 07/31/20 21:37 07/31/20 22:27 07/31/20 23:21 Temperature Temperature Source Pulse Rate 86 83 78 Pulse Rate [Lying] Pulse Rate [Sitting] Pulse Rate [Standing] Respiratory Rate 20 H 15 21 H Respiratory Effort Respiratory Pattern Blood Pressure 190/100 H 180/92 H 174/95 H Blood Pressure [Lying] Blood Pressure [Sitting] Blood Pressure [Standing] Blood Pressure Mean 130 121 121 Blood Pressure Mean [Lying] Blood Pressure Mean [Sitting] Blood Pressure Mean [Standing] Pulse Ox 100 96 94 Oxygen Delivery Method Room Air Room Air Room Air 08/01/20 00:05 Temperature Temperature Source Pulse Rate 74 Pulse Rate [Lying] Pulse Rate [Sitting] Pulse Rate [Standing] Respiratory Rate 18 Respiratory Effort Respiratory Pattern Blood Pressure 178/100 H Blood Pressure [Lying] Blood Pressure [Sitting] Blood Pressure [Standing] Blood Pr (more content not included)... Normal [facility] Troponin-Ion 07-31-2020 Troponin I.cardiac [Mass/Vol] ng/mL Normal <0.[address] [facility] Comment on above: Result Comment: TROP ONIN-I EXPECTED VALUES <0.045 Negative 0.045 - 0.590 Consistent with Cardiac Damage > OR = 0.600 Critical Value Not every elevated troponin is indicative of [place]. These values should be used with clinical judgement in examining the patient's clinical picture for diagnosis. To establish a diagnosis of [place] versus myocardial injury, there must be a demonstrated rise and/or fall in the troponin values, in addition to ischemic symptoms, EKG changes, new regional wall motion abnormality, and/or angiographical evidence. PLEASE NOTE: REFERENCE RANGES EDITED 17 Performed By: #### L 500.4050, L501.4010, L100.0100 #### [facility] [address] [place], [address] Basic Panelon 10-27-2018 Creatinine [Mass/Vol] 0.96 mg/dL Normal 0.67-1.17 [facility] Comment on above: Performed By: #### C BC1 #### [facility] [address] [place], [place] [address] Urea nitrogen [Mass/Vol] 12 mg/dL Normal 7-18 [facility] Comment on above: Performed By: #### C BC1 #### [facility] [address] [place], [place] [address] Anion gap [Moles/Vol] 9 mmol/L Normal 8-16 [facility] Comment on above: Performed By: #### C BC1 #### [facility] [address] [place], [place] [address] Calcium [Mass/Vol] 8.8 mg/dL Normal 8.5-10.1 [facility] Comment on above: Performed By: #### C BC1 #### [facility] [address] [place], [place] [address] CO2 [Moles/Vol] 27 mmol/L Normal 21-32 [facility] Comment on above: Performed By: #### C BC1 #### [facility] [address] [place], [place] [address] Glucose [Mass/Vol] 108 mg/dL High 70-99 [facility] Comment on above: Performed By: #### C BC1 #### [facility] [address] [place], [place] [address] Chloride [Moles/Vol] 106 mmol/L Normal 98-107 [facility] Comment on above: Performed By: #### C BC1 #### [facility] [address] [place], [place] [address] Potassium [Moles/Vol] 4.1 mmol/L Normal 3.5-5.1 [facility] Comment on above: Performed By: #### C BC1 #### [facility] [address] [place] [address] Sodium [Moles/Vol] 138 mmol/L Normal 136-145 [facility] Comment on above: Performed By: #### C BC1 #### [facility] [address] [place] [address] Hemogram/Diffon 10-27-2018 Abs Immature Grans 0.02 thou/cmm Normal 0.00-0.05 [facility] Comment on above: Performed By: #### C BC1 #### [facility] [address] [place] [address] Abs Neut (ANC) 4.13 thou/cmm Normal 1.78-5.38 [facility] Comment on above: Performed By: #### C BC1 #### [facility] [address] [place] [address] Abs. Baso 0.03 thou/cmm Normal 0.01-0.08 [facility] Comment on above: Performed By: #### C BC1 #### [facility] [address] [place] [address] Abs. [place] 0.67 thou/cmm Normal 0.30-0.82 [facility] Comment on above: Performed By: #### C BC1 #### [facility] [address] [place] [address] Basophils/100 WBC (Bld) 0.5 % Normal [facility] Comment on above: Performed By: #### C BC1 #### [facility] [address] [place] [address] Eosinophils (Bld) [#/Vol] 0.23 thou/cmm Normal 0.04-0.54 [facility] Comment on above: Performed By: #### C BC1 #### [facility] [address] [place] [address] Eosinophils/100 WBC (Bld) 3.9 % Normal [facility] Comment on above: Performed By: #### C BC1 #### [facility] [address] [place] [address] Erythrocyte distribution width (RBC) [Ratio] 19.4 % High 11.6-14.4 [facility] Comment on above: Performed By: #### C BC1 #### [facility] [address] [place] [address] Hematocrit (Bld) [Volume fraction] 39.4 % Low 40.1-51.0 [facility] Comment on above: Performed By: #### C BC1 #### [facility] [address] [place] [address] Hemoglobin (Bld) [Mass/Vol] 11.8 g/dL Low 13.7-17.5 [facility] Comment on above: Performed By: #### C BC1 #### [facility] [address] [place] [address] Immature Grans 0.30 % Normal [facility] Comment on above: Performed By: #### C BC1 #### [facility] [address] [place] [address] Lymphocytes (Bld) [#/Vol] 0.85 thou/cmm Normal 0.84-2.85 [facility] Comment on above: Performed By: #### C BC1 #### [facility] [address] [place] [address] Lymphocytes/100 WBC (Bld) 14.3 % Normal [facility] Comment on above: Performed By: #### C BC1 #### [facility] [address] [place] [address] MCH (RBC) [Entitic mass] 25.6 pg Low 25.7-32.2 [facility] Comment on above: Performed By: #### C BC1 #### [facility] [address] [place] [address] MCHC (RBC) [Mass/Vol] 29.9 % Low 32.3-36.5 [facility] Comment on above: Performed By: #### C BC1 #### [facility] [address] [place] [address] MCV (RBC) [Entitic vol] 85.5 fL Normal 83.2-95.6 [facility] [facility] Comment on above: Performed By: #### C BC1 #### [facility] [address] [place] [address] Monocytes/100 WBC (Bld) 11.3 % Normal [facility] Comment on above: Performed By: #### C BC1 #### [facility] [address] [place] [address] Platelet mean volume (Bld) [Entitic vol] 8.3 fL Low 8.7-12.0 [facility] Comment on above: Performed By: #### C BC1 #### [facility] [address] [place] [address] Platelets (Bld) [#/Vol] 305 thou/cmm Normal 141-365 [facility] Comment on above: Performed By: #### C BC1 #### [facility] [address] [place] [address] RBC (Bld) [#/Vol] 4.61 mil/cmm Low 4.63-6.08 [facility] Comment on above: Performed By: #### C BC1 #### [facility] [address] [place] [address] RDW SD 60.4 fl High 36.1-45.8 [facility] Comment on above: Performed By: #### C BC1 #### [facility] [address] [place] [address] Seg Neutrophil 69.7 % Normal [facility] Comment on above: Performed By: #### C BC1 #### [facility] [address] [place] [id number] WBC (Bld) [#/Vol] 5.93 thou/cmm Normal 4.23-9.07 [facility] Comment on above: Performed By: #### C BC1 #### [facility] [address] [place] [id number] MDRD GFRon 10-27-2018 GFR/1.73 sq M predicted among non-blacks MDRD (S/P/Bld) [Vol rate/Area] mL/min/{1.73_m2} Normal >60mL/min/1. 73m2 [facility] Comment on above: Result Comment: If t he patient is , multiply the result by 1.210. Performed By: #### G FR #### [facility] [address] [place], [place] [address] Basic Panelon 10-26-2018 Creatinine [Mass/Vol] 0.94 mg/dL Normal 0.67-1.17 [facility] Comment on above: Performed By: #### G FR #### [facility] [address] [place], [place] [address] Anion gap [Moles/Vol] 7 mmol/L Low 8-16 [facility] Comment on above: Performed By: #### G FR #### [facility] [address] [place], [place] [address] Calcium [Mass/Vol] 8.1 mg/dL Low 8.5-10.1 [facility] Comment on above: Performed By: #### G FR #### [facility] [address] [place], [place] [address] CO2 [Moles/Vol] 26 mmol/L Normal 21-32 [facility] Comment on above: Performed By: #### G FR #### [facility] [address] [place], [place] [address] Glucose [Mass/Vol] 103 mg/dL High 70-99 [facility] Comment on above: Performed By: #### G FR #### [facility] [address] [place], [place] [address] Urea nitrogen [Mass/Vol] 10 mg/dL Normal 7-18 [facility] Comment on above: Performed By: #### G FR #### [facility] [address] [place], [place] [address] Chloride [Moles/Vol] 109 mmol/L High 98-107 [facility] Comment on above: Performed By: #### G FR #### [facility] [address] [place], [place] [address] Potassium [Moles/Vol] 4.1 mmol/L Normal 3.5-5.1 [facility] Comment on above: Performed By: #### G FR #### [facility] [address] [place] [address] Sodium [Moles/Vol] 138 mmol/L Normal 136-145 [facility] Comment on above: Performed By: #### G FR #### [facility] [address] [place] [address] Hemogram/Diffon 10-26-2018 Abs Immature Grans 0.02 thou/cmm Normal 0.00-0.05 [facility] Comment on above: Performed By: #### G FR #### [facility] [address] [place] [address] Abs Neut (ANC) 4.26 thou/cmm Normal 1.78-5.38 [facility] Comment on above: Performed By: #### G FR #### [facility] [address] [place] [address] Abs. Baso 0.02 thou/cmm Normal 0.01-0.08 [facility] Comment on above: Performed By: #### G FR #### [facility] [address] [place] [address] Abs. [place] 0.64 thou/cmm Normal 0.30-0.82 [facility] Comment on above: Performed By: #### G FR #### [facility] [address] [place] [address] Basophils/100 WBC (Bld) 0.3 % Normal [facility] Comment on above: Performed By: #### G FR #### [facility] [address] [place] [address] Eosinophils (Bld) [#/Vol] 0.08 thou/cmm Normal 0.04-0.54 [facility] Comment on above: Performed By: #### G FR #### [facility] [address] [place] [address] Eosinophils/100 WBC (Bld) 1.3 % Normal [facility] Comment on above: Performed By: #### G FR #### [facility] [address] [place] [address] Erythrocyte distribution width (RBC) [Ratio] 19.3 % High 11.6-14.4 [facility] Comment on above: Performed By: #### G FR #### [facility] [address] [place] [address] Hematocrit (Bld) [Volume fraction] 34.6 % Low 40.1-51.0 [facility] Comment on above: Performed By: #### G FR #### [facility] [address] [place] [address] Hemoglobin (Bld) [Mass/Vol] 10.4 g/dL Low 13.7-17.5 [facility] Comment on above: Performed By: #### G FR #### [facility] [address] [place] [address] Immature Grans 0.30 % Normal [facility] Comment on above: Performed By: #### G FR #### [facility] [address] [place] [address] Lymphocytes (Bld) [#/Vol] 0.97 thou/cmm Normal 0.84-2.85 [facility] Comment on above: Performed By: #### G FR #### [facility] [address] [place] [address] Lymphocytes/100 WBC (Bld) 16.2 % Normal [facility] Comment on above: Performed By: #### G FR #### [facility] [address] [place] [address] MCH (RBC) [Entitic mass] 25.4 pg Low 25.7-32.2 [facility] Comment on above: Performed By: #### G FR #### [facility] [address] [place] [address] MCHC (RBC) [Mass/Vol] 30.1 % Low 32.3-36.5 [facility] Comment on above: Performed By: #### G FR #### [facility] [address] [place] [address] MCV (RBC) [Entitic vol] 84.4 fL Normal 83.2-95.6 [facility] Comment on above: Performed By: #### G FR #### [facility] [address] [place], [place] [address] Monocytes/100 WBC (Bld) 10.7 % Normal [facility] Comment on above: Performed By: #### G FR #### [facility] [address] [place], [place] [address] Platelet mean volume (Bld) [Entitic vol] 8.6 fL Low 8.7-12.0 [facility] Comment on above: Performed By: #### G FR #### [facility] [address] [place] [address] Platelets (Bld) [#/Vol] 295 thou/cmm Normal 141-365 [facility] Comment on above: Performed By: #### G FR #### [facility] [address] [place] [address] RBC (Bld) [#/Vol] 4.10 mil/cmm Low 4.63-6.08 [facility] Comment on above: Performed By: #### G FR #### [facility] [address] [place] [address] RDW SD 59.4 fl High 36.1-45.8 [facility] Comment on above: Performed By: #### G FR #### [facility] [address] [place] [address] Seg Neutrophil 71.2 % Normal [facility] Comment on above: Performed By: #### G FR #### [facility] [address] [place] [address] WBC (Bld) [#/Vol] 5.98 thou/cmm Normal 4.23-9.07 [facility] Comment on above: Performed By: #### G FR #### [facility] [address] [place] [address] Basic Panelon 10-25-2018 Creatinine [Mass/Vol] 0.89 mg/dL Normal 0.67-1.17 [facility] Comment on above: Performed By: #### G FR #### [facility] [address] [place] [address] Anion gap [Moles/Vol] 9 mmol/L Normal 8-16 [facility] Comment on above: Performed By: #### G FR #### [facility] [address] [place], [place] [address] CO2 [Moles/Vol] 23 mmol/L Normal 21-32 [facility] Comment on above: Performed By: #### G FR #### [facility] [address] [place], [place] [address] Glucose [Mass/Vol] 128 mg/dL High 70-99 [facility] Comment on above: Performed By: #### G FR #### [facility] [address] [place], [place] [address] Urea nitrogen [Mass/Vol] 11 mg/dL Normal 7-18 [facility] Comment on above: Performed By: #### G FR #### [facility] [address] [place], [place] [address] Calcium [Mass/Vol] 8.0 mg/dL Low 8.5-10.1 [facility] Comment on above: Performed By: #### G FR #### [facility] [address] [place], [place] [address] Chloride [Moles/Vol] 112 mmol/L High 98-107 [facility] Comment on above: Performed By: #### G FR #### [place] [address] Potassium [Moles/Vol] 4.5 mmol/L Normal 3.5-5.1 [facility] Comment on above: Performed By: #### G FR #### [facility] [address] [place], [place] [address] Sodium [Moles/Vol] 139 mmol/L Normal 136-145 [facility] Comment on above: Performed By: #### G FR #### [place] [address] Hemogram/Diffon 10-25-2018 Abs Immature Grans 0.03 thou/cmm Normal 0.00-0.05 [facility] Comment on above: Performed By: #### G FR #### [place] [address] Abs Neut (ANC) 6.50 thou/cmm High 1.78-5.38 [facility] Comment on above: Performed By: #### G FR #### [facility] [address] [place] [address] Abs. Baso 0.01 thou/cmm Normal 0.01-0.08 [facility] Comment on above: Performed By: #### G FR #### [facility] [address] [place] [address] Abs. [place] 0.87 thou/cmm High 0.30-0.82 [facility] Comment on above: Performed By: #### G FR #### [facility] [address] [place] [address] Basophils/100 WBC (Bld) 0.1 % Normal [facility] Comment on above: Performed By: #### G FR #### [facility] [address] [place] [address] Eosinophils (Bld) [#/Vol] 0.00 thou/cmm Low 0.04-0.54 [facility] Comment on above: Performed By: #### G FR #### [facility] [address] [place] [address] Eosinophils/100 WBC (Bld) 0.0 % Normal [facility] Comment on above: Performed By: #### G FR #### [facility] [address] [place] [address] Erythrocyte distribution width (RBC) [Ratio] 19.1 % High 11.6-14.4 [facility] Comment on above: Performed By: #### G FR #### [facility] [address] [place] [address] Hematocrit (Bld) [Volume fraction] 33.4 % Low 40.1-51.0 [facility] Comment on above: Performed By: #### G FR #### [facility] [address] [place] [address] Hemoglobin (Bld) [Mass/Vol] 10.0 g/dL Low 13.7-17.5 [facility] Comment on above: Performed By: #### G FR #### [facility] [address] [place], [place] [address] Immature Grans 0.40 % Normal [facility] Comment on above: Performed By: #### G FR #### [facility] [address] [place], [place] [address] Lymphocytes (Bld) [#/Vol] 0.66 thou/cmm Low 0.84-2.85 [facility] Comment on above: Performed By: #### G FR #### [facility] [address] [place] [address] Lymphocytes/100 WBC (Bld) 8.2 % Normal [facility] Comment on above: Performed By: #### G FR #### [facility] [address] [place] [address] MCH (RBC) [Entitic mass] 25.3 pg Low 25.7-32.2 [facility] Comment on above: Performed By: #### G FR #### [facility] [address] [place] [address] MCHC (RBC) [Mass/Vol] 29.9 % Low 32.3-36.5 [facility] Comment on above: Performed By: #### G FR #### [facility] [address] [place] [address] MCV (RBC) [Entitic vol] 84.6 fL Normal 83.2-95.6 [facility] Comment on above: Performed By: #### G FR #### [facility] [address] [place] [address] Monocytes/100 WBC (Bld) 10.8 % Normal [facility] Comment on above: Performed By: #### G FR #### [facility] [address] [place] [address] Platelet mean volume (Bld) [Entitic vol] 8.4 fL Low 8.7-12.0 [facility] Comment on above: Performed By: #### G FR #### [facility] [address] [place] [id number] Platelets (Bld) [#/Vol] 268 thou/cmm Normal 141-365 [facility] Comment on above: Performed By: #### G FR #### [facility] [address] [place] [address] RBC (Bld) [#/Vol] 3.95 mil/cmm Low 4.63-6.08 [facility] Comment on above: Performed By: #### G FR #### [facility] [address] [place] [address] RDW SD 58.8 fl High 36.1-45.8 [facility] Comment on above: Performed By: #### G FR #### [facility] [address] [place] [address] Seg Neutrophil 80.5 % Normal [facility] Comment on above: Performed By: #### G FR #### [facility] [address] [place] [address] WBC (Bld) [#/Vol] 8.08 thou/cmm Normal 4.23-9.07 [facility] Comment on above: Performed By: #### G FR #### [facility] [address] [place] [address] ABO/Rh Confirmationon 2018 ABO group Nom (Bld) A Normal [facility] Comment on above: Performed By: #### G FR #### [facility] [address] [place] [address] RH Type Positive Normal [facility] Comment on above: Performed By: #### G FR #### [facility] [address] [place] [address] Basic Panelon 10-24-2018 Creatinine [Mass/Vol] 1.06 mg/dL Normal 0.67-1.17 [facility] Comment on above: Performed By: #### G FR #### [facility] [address] [place] [address] Glucose [Mass/Vol] 144 mg/dL High 70-99 [facility] Comment on above: Performed By: #### G FR #### [place] [address] Anion gap [Moles/Vol] 12 mmol/L Normal 8-16 [facility] Comment on above: Performed By: #### G FR #### [facility] [address] [place], [place] [address] CO2 [Moles/Vol] 22 mmol/L Normal 21-32 [facility] Comment on above: Performed By: #### G FR #### [facility] [address] [place] [address] Urea nitrogen [Mass/Vol] 14 mg/dL Normal 7-18 [facility] Comment on above: Performed By: #### G FR #### [facility] [address] [place] [address] Calcium [Mass/Vol] 8.0 mg/dL Low 8.5-10.1 [facility] Comment on above: Performed By: #### G FR #### [facility] [address] [place] [address] Chloride [Moles/Vol] 108 mmol/L High 98-107 [facility] Comment on above: Performed By: #### G FR #### [facility] [address] [place] [address] Potassium [Moles/Vol] 4.5 mmol/L Normal 3.5-5.1 [facility] Comment on above: Performed By: #### G FR #### [facility] [address] [place] [address] Sodium [Moles/Vol] 137 mmol/L Normal 136-145 [facility] Comment on above: Performed By: #### G FR #### [facility] [address] [place] [address] CKMB%on 10-24-2018 % CKMB 1.6 Normal [facility] Comment on above: Result Comment: CKMB normal range : Normal < or = 5. Back zone >5 & relative index < or = 4. AMI > 5 & relative index >4. Performed By: #### G FR #### [facility] [address] [place] [address] CK.MB [Mass/Vol] 1.5 ng/mL Normal [facility] Comment on above: Performed By: #### G FR #### [facility] [address] [place] [address] CK [Catalytic activity/Vol] 95 U/L Normal 39-308 [facility] Comment on above: Performed By: #### G FR #### [facility] [address] [place] [address] Glucose Meteron 10-24-2018 Glucose [Mass/Vol] 137 mg/dL High 70-99 [facility] Comment on above: Result Comment: WILLIAM N OTIFIED Performed By: #### G LMET #### [facility] [address] [place] [address] Hemogram/Diffon 10-24-2018 Abs Immature Grans 0.06 thou/cmm High 0.00-0.05 [facility] Comment on above: Performed By: #### G FR #### [facility] [address] [place] [address] Abs Neut (ANC) 8.88 thou/cmm High 1.78-5.38 [facility] Comment on above: Performed By: #### G FR #### [facility] [address] [place] [address] Abs. Baso 0.01 thou/cmm Normal 0.01-0.08 [facility] Comment on above: Result Comment: Smea r scanned; tech agrees with automated differential Performed By: #### G FR #### [facility] [address] [place] [address] Abs. [place] 0.21 thou/cmm Low 0.30-0.82 [facility] Comment on above: Performed By: #### G FR #### [facility] [address] [place] [address] Basophils/100 WBC (Bld) 0.1 % Normal [facility] Comment on above: Performed By: #### G FR #### [facility] [address] [place] [address] Eosinophils (Bld) [#/Vol] 0.00 thou/cmm Low 0.04-0.54 [facility] Comment on above: Performed By: #### G FR #### [facility] [address] [place], [place] [address] Eosinophils/100 WBC (Bld) 0.0 % Normal [facility] Comment on above: Performed By: #### G FR #### [facility] [address] [place], [place] [address] Immature Grans 0.60 % Normal [facility] Comment on above: Performed By: #### G FR #### [facility] [address] [place], [place] [address] Lymphocytes (Bld) [#/Vol] 0.31 thou/cmm Low 0.84-2.85 [facility] Comment on above: Performed By: #### G FR #### [facility] [address] [place], [place] [address] Lymphocytes/100 WBC (Bld) 3.3 % Normal [facility] Comment on above: Performed By: #### G FR #### [facility] [address] [place], [place] [address] Monocytes/100 WBC (Bld) 2.2 % Normal [facility] Comment on above: Performed By: #### G FR #### [facility] [address] [place], [place] [address] Seg Neutrophil 93.8 % Normal [facility] Comment on above: Performed By: #### G FR #### [facility] [address] [place], [place] [address] Erythrocyte distribution width (RBC) [Ratio] 18.8 % High 11.6-14.4 [facility] Comment on above: Performed By: #### G FR #### [facility] [address] [place], [place] [address] Hematocrit (Bld) [Volume fraction] 34.5 % Low 40.1-51.0 [facility] Comment on above: Performed By: #### G FR #### [facility] [address] [place], [place] [address] Hemoglobin (Bld) [Mass/Vol] 10.3 g/dL Low 13.7-17.5 [facility] Comment on above: Performed By: #### G FR #### [facility] [address] [place] [address] MCH (RBC) [Entitic mass] 25.2 pg Low 25.7-32.2 [facility] Comment on above: Performed By: #### G FR #### [facility] [address] [place] [address] MCHC (RBC) [Mass/Vol] 29.9 % Low 32.3-36.5 [facility] Comment on above: Performed By: #### G FR #### [facility] [address] [place] [address] MCV (RBC) [Entitic vol] 84.4 fL Normal 83.2-95.6 [facility] Comment on above: Performed By: #### G FR #### [facility] [address] [place] [address] Platelet mean volume (Bld) [Entitic vol] 7.9 fL Low 8.7-12.0 [facility] Comment on above: Performed By: #### G FR #### [facility] [address] [place] [address] Platelets (Bld) [#/Vol] 265 thou/cmm Normal 141-365 [facility] Comment on above: Performed By: #### G FR #### [facility] [address] [place] [address] RBC (Bld) [#/Vol] 4.09 mil/cmm Low 4.63-6.08 [facility] Comment on above: Performed By: #### G FR #### [facility] [address] [place] [address] RDW SD 58.1 fl High 36.1-45.8 [facility] Comment on above: Performed By: #### G FR #### [facility] [address] [place] [address] WBC (Bld) [#/Vol] 9.47 thou/cmm High 4.23-9.07 [facility] Comment on above: Performed By: #### G FR #### [facility] [address] [place] [address] Surgical Tissue Examon 10-24 Surgical Tissue Exam Test performed at [facility] [address] [place], [place] [address] NAME: ALEXANDER MIRANDA REQUESTING: KHANH KUHN M.D. FINAL DIAGNOSIS: RECTUM, LOWER ANTERIOR RESECTION - LARGE BOWEL SEGMENT WITH SURGICAL SITE CHANGES, NEGATIVE FOR RESIDUAL TUMOR (SEE NOTE). MULTIPLE NON-INFLAMED DIVERTICULA. UNREMARKABLE MARGINS OF RESECTION. TEN BENIGN LYMPH NODES (0/10). TWO UNREMARKABLE BOWEL RINGS. NOTE: The updated pathologic stage is pT1a pN0. OPERATIVE PROCEDURE: Laparoscopic low anterior resection, possible open CLINICAL INFORMATION: Rectal cancer GROSS DESCRIPTION: Low anterior bowel resection and anastomotic donuts Received in formalin labeled low anterior bowel resection and anastomotic donuts is a left colon resection including rectum measuring 38 cm in length. The proximal circumference measures 3.0 cm and the distal measures 6.0 cm. The proximal staple margin is inked blue and the distal margin staple margin is inked orange. The serosal surface appears smooth and glistening. The mesorectum is complete. The bowel is opened longitudinally to reveal a right lateral wall, shallow puckered ulceration, measuring 1 x 0.5 x 0.1 cm. The ulceration is located at the peritoneal reflection and extends within 0.5 cm of the distal line of resection; 36 cm from the proximal margin of resection; and 1.0 cm from the nearest radial margin. Next, situated approximately 3.0 cm from the distal margin is a 6.5 cm stretch of sessile irene-pink, slightly elevated polyps. The polyps range in size from 3 mm up to 6 mm and are circumferential. No submucosal invasion is seen. Next, 15 cm from the distal margin and extending to the proximal margin of resection are numerous diverticula, none of which form a perforation or abscess cavity. The wall thickness ranges from 2 mm to 3 mm. A satellite lesion is not seen. Also received in the same container are two additional rings of bowel adhered to a metallic device, each measuring 1.0 cm in length. The additional rings of bowel appear grossly unremarkable. [employer] sections are submitted starting distally and moving proximally as follows: 1 - shaved mesenteric margin and bi-valved lymph node; 2-4 - perpendicular distal margin in relationship to ulcer and overlying serosa; 5 - remainder of ulcer in relationship to distal and nearest radial margin; 6-7 - remainder of distal margin, shaved; 8 - shaved proximal margin; 9 - 5 cm from distal; 10 - 8 cm from distal margin; 11 - 10 cm from distal margin; 12 - 15 cm in area of diverticula; 13 - 20 cm in area of diverticula; 14 - office services representative section of each additional ring of bowel; 15 - three lymph nodes, nearest to ulcer; 16 - three lymph nodes, nearest to ulcer; 17-19 - one bisected lymph node (nearest to ulcer), per cassette; 20 - one lymph node furthest from ulcer; 21-25 - random sections of pericolonic fibroadipose tissue. [facility]:paris LYNN M.D.,PATHOLOGIST (Electronic signature on file) Signed out: 10/28/2018 14:21 PRINTED: 10/28/2018 Page 1 of 1 Normal [facility] Comment on above: Performed By: #### C BC1 #### [place] [address] Troponin Ion 10-24-2018 Troponin I.cardiac [Mass/Vol] ng/mL Normal 0.015-0.045 [facility] Comment on above: Performed By: #### G FR #### [place] [address] Basic Panelon 10-21-2018 Creatinine [Mass/Vol] 0.82 mg/dL Normal 0.67-1.17 [facility] Comment on above: Performed By: #### P 8 #### [address] [address] Glucose [Mass/Vol] 110 mg/dL High 70-99 [facility] Comment on above: Performed By: #### P 8 #### [address] [address] Anion gap [Moles/Vol] 11 mmol/L Normal 8-16 [facility] Comment on above: Performed By: #### P 8 #### [place] [id number] CO2 [Moles/Vol] 28 mmol/L Normal 21-32 [facility] Comment on above: Performed By: #### P 8 #### [facility] [address] [place] [address] Urea nitrogen [Mass/Vol] 17 mg/dL Normal 7-18 [facility] Comment on above: Performed By: #### P 8 #### [facility] [address] [place], [place] [address] Calcium [Mass/Vol] 9.1 mg/dL Normal 8.5-10.1 [facility] Comment on above: Performed By: #### P 8 #### [facility] [address] [place] [address] Chloride [Moles/Vol] 106 mmol/L Normal 98-107 [facility] Comment on above: Performed By: #### P 8 #### [facility] [address] [place] [address] Potassium [Moles/Vol] 5.4 mmol/L High 3.5-5.1 [facility] Comment on above: Performed By: #### P 8 #### [facility] [address] [place] [address] Sodium [Moles/Vol] 140 mmol/L Normal 136-145 [facility] Comment on above: Performed By: #### P 8 #### [facility] [address] [place] [address] Hemogramon 10-21-2018 Erythrocyte distribution width (RBC) [Ratio] 20.3 % High 11.6-14.4 [facility] Comment on above: Performed By: #### C BC1 #### [facility] [address] [place] [address] Hematocrit (Bld) [Volume fraction] 41.9 % Normal 40.1-51.0 [facility] Comment on above: Performed By: #### C BC1 #### [facility] [address] [place] [id number] Hemoglobin (Bld) [Mass/Vol] 12.5 g/dL Low 13.7-17.5 [facility] Comment on above: Performed By: #### C BC1 #### [facility] [address] [place] [address] MCH (RBC) [Entitic mass] 25.6 pg Low 25.7-32.2 [facility] Comment on above: Performed By: #### C BC1 #### [facility] [address] [place], [place] [address] MCHC (RBC) [Mass/Vol] 29.8 % Low 32.3-36.5 [facility] Comment on above: Performed By: #### C BC1 #### [facility] [address] [place], [place] [address] MCV (RBC) [Entitic vol] 85.9 fL Normal 83.2-95.6 [facility] Comment on above: Performed By: #### C BC1 #### [facility] [address] [place] [address] Platelet mean volume (Bld) [Entitic vol] 8.9 fL Normal 8.7-12.0 [facility] Comment on above: Performed By: #### C BC1 #### [facility] [address] [place] [address] Platelets (Bld) [#/Vol] 367 thou/cmm High 141-365 [facility] Comment on above: Performed By: #### C BC1 #### [facility] [address] [place] [address] RBC (Bld) [#/Vol] 4.88 mil/cmm Normal 4.63-6.08 [facility] Comment on above: Performed By: #### C BC1 #### [facility] [address] [place] [address] RDW SD 62.7 fl High 36.1-45.8 [facility] Comment on above: Performed By: #### C BC1 #### [facility] [address] [place], [place] [address] WBC (Bld) [#/Vol] 6.11 thou/cmm Normal 4.23-9.07 [facility] Comment on above: Performed By: #### C BC1 #### [facility] [address] [place], [place] [address] MDRD GFRon 10-21-2018 GFR/1.73 sq M predicted among non-blacks MDRD (S/P/Bld) [Vol rate/Area] mL/min/{1.73_m2} Normal >60mL/min/1. 73m2 [facility] Comment on above: Result Comment: If t he patient is , multiply the result by 1.210. Performed By: #### G FR #### [facility] [address] [place] [address] PROGRESSon 10-21-2018 PROGRESS HNO ID: [id number] Author: Eliza Valenzuela Service: ? Author Type: Nurse Practitioner Type: Progress Notes Filed: 10/21/2018 3:23 PM Note Text: Tumor Board 10/18/2018 Patient Name: Alexander Miranda : 1950 Presenter: Khanh Kuhn MD Specialty: Surgery Pertinent History: Transanal excision of a rectal polyp in the mid-rectum and was found on pathologic evaluation to have a T1 rectal cancer with a 0.8 mm margin. Past medical history of stroke in 2011 with no residual deficit. Family history includes unknown cancer in father. Primary Site: Rectum Date of Biopsy: 06/04/2018 Rectal mass biopsy Biopsy Result: Fragments of tubular adenoma with multifocal high grade dysplasia / carcinoma in situ. Negative for invasive carcinoma. Date of Biopsy: 08/08/2018 Transanal midrectal excision Biopsy Result: Invasive well differentiated adenocarcinoma arising in association with a villotubular adenoma. 10/15/2018 CEA = 1.7 Clinical Staging: AJCC 8th Ed. Stage pT1 pNx Date of Surgery: PENDING ---> 10/24/2018 Surgical Procedure: Laparoscopic low anterior resection, possible open Adjuvant therapy recommended: Yes Clinical trial candidate: No Primary reason for case presentation: Case review and treatment planning. After review and discussion related to patient presentation, the following recommendations were made: *Laparoscopic low anterior resection (possible open) planned secondary to insufficient margin and concern of possible lymphatic This is the summary of the general discussion provided at tumor board conference. The final recommendations will be made by the primary health care team and the patient after discussing the benefits, risks and alternatives to the various treatment options. Eliza Valenzuela, CREDIT COLLECTIONS ANALYST, MACHINIST APPRENTICE WOOD, [facility] [phone] [facility] Type and Screenon 10-21-2018 ABO group Nom (Bld) A Normal [facility] Comment on above: Performed By: #### T &S #### [facility] [address] [place] [address] Comment PAT specimen Normal [facility] Comment on above: Performed By: #### T &S #### [facility] [address] [place] [address] RH Type Positive Normal [facility] Comment on above: Performed By: #### T &S #### [facility] [address] [place] [address] CEAon 10-16-2018 CEA 1.7 ng/mL Normal 0.0-3.0 [facility] Comment on above: Result Comment: The reference range shown is for adult non-smokers. The range for smokers is 0-5.0 Testing performed by Chemiluminescence LOCI. Performed By: #### C EA #### [facility] [address] [place] [address] Basic Panelon 08-08-2018 Creatinine [Mass/Vol] 0.91 mg/dL Normal 0.67-1.17 [facility] Comment on above: Performed By: #### P 8 #### [facility] [address] [place] [address] Urea nitrogen [Mass/Vol] 15 mg/dL Normal 7-18 [facility] Comment on above: Performed By: #### P 8 #### [facility] [address] [place] [address] Anion gap [Moles/Vol] 8 mmol/L Normal 8-16 [facility] Comment on above: Performed By: #### P 8 #### [facility] [address] [place] [address] Calcium [Mass/Vol] 8.7 mg/dL Normal 8.5-10.1 [facility] Comment on above: Performed By: #### P 8 #### [facility] [address] [place] [address] CO2 [Moles/Vol] 25 mmol/L Normal 21-32 [facility] Comment on above: Performed By: #### P 8 #### [facility] [address] [place] [address] Glucose [Mass/Vol] 110 mg/dL High 70-99 [facility] Comment on above: Performed By: #### P 8 #### [facility] [address] [place] [address] Chloride [Moles/Vol] 106 mmol/L Normal 98-107 [facility] Comment on above: Performed By: #### P 8 #### [facility] [address] [place] [address] Potassium [Moles/Vol] 4.3 mmol/L Normal 3.5-5.1 [facility] Comment on above: Performed By: #### P 8 #### [facility] [address] [place] [address] Sodium [Moles/Vol] 135 mmol/L Low 136-145 [facility] Comment on above: Performed By: #### P 8 #### [facility] [address] [place] [address] Hemogramon 08-08-2018 Erythrocyte distribution width (RBC) [Ratio] 15.8 % High 11.6-14.4 [facility] Comment on above: Performed By: #### C BC1 #### [facility] [address] [place] [address] Hematocrit (Bld) [Volume fraction] 34.2 % Low 40.1-51.0 [facility] Comment on above: Performed By: #### C BC1 #### [facility] [address] [place] [address] Hemoglobin (Bld) [Mass/Vol] 10.2 g/dL Low 13.7-17.5 [facility] Comment on above: Performed By: #### C BC1 #### [facility] [address] [place] [address] MCH (RBC) [Entitic mass] 25.8 pg Normal 25.7-32.2 [facility] Comment on above: Performed By: #### C BC1 #### [facility] [address] [place] [address] MCHC (RBC) [Mass/Vol] 29.8 % Low 32.3-36.5 [facility] Comment on above: Performed By: #### C BC1 #### [facility] [address] [place], [place] [address] MCV (RBC) [Entitic vol] 86.4 fL Normal 83.2-95.6 [facility] Comment on above: Performed By: #### C BC1 #### [facility] [address] [place], [place] [address] Platelet mean volume (Bld) [Entitic vol] 9.0 fL Normal 8.7-12.0 [facility] Comment on above: Performed By: #### C BC1 #### [facility] [address] [place], [place] [address] Platelets (Bld) [#/Vol] 314 thou/cmm Normal 141-365 [facility] Comment on above: Performed By: #### C BC1 #### [facility] [address] [place], [place] [address] RBC (Bld) [#/Vol] 3.96 mil/cmm Low 4.63-6.08 [facility] Comment on above: Performed By: #### C BC1 #### [facility] [address] [place], [place] [address] RDW SD 50.1 fl High 36.1-45.8 [facility] Comment on above: Performed By: #### C BC1 #### [facility] [address] [place], [place] [address] WBC (Bld) [#/Vol] 6.20 thou/cmm Normal 4.23-9.07 [facility] Comment on above: Performed By: #### C BC1 #### [facility] [address] [place], [place] [address] MDRD GFRon 08-08-2018 GFR/1.73 sq M predicted among non-blacks MDRD (S/P/Bld) [Vol rate/Area] mL/min/{1.73_m2} Normal >60mL/min/1. 73m2 [facility] Comment on above: Result Comment: If t he patient is , multiply the result by 1.210. Performed By: #### G FR #### [place] [address] Surgical Tissue Examon 08-08 Surgical Tissue Exam Test performed at [place] [address] NAME: ALEXANDER MIRANDA REQUESTING: KHANH KUHN M.D. COPY TO: TUMOR REGISTRY; CERTIFIED NEURODIAGNOSTIC TECHNOLOGIST FINAL DIAGNOSIS: TRANSANAL MIDRECTAL EXCISION - INVASIVE WELL DIFFERENTIATED ADENOCARCINOMA ARISING IN ASSOCIATION WITH A VILLOTUBULAR ADENOMA. TUMOR INVADES INTO THE SUBMUCOSA. RESECTION MARGINS ARE FREE OF INVOLVEMENT BY INVASIVE ADENOCARCINOMA OR VILLOTUBULAR ADENOMA (SEE COMMENT). COMMENT: No involvement of the mucosal margins by invasive adenocarcinoma or villotubular adenocarcinoma is identified. Invasive adenocarcinoma, however, is 0.8 mm from the inked deep resection margin. Invasive adenocarcinoma is at least 2mm from the mucosal margins. This case was discussed with Dr. Kuhn on 08/13/18. It was also reviewed by Dr. Darren Lynn who agrees with the diagnosis. Colon and Rectum Cancer Case Summary Procedure: Transanal disk excision. Tumor site: Mid rectum. Tumor size: 6 mm (as measured on the microscopic slide). Histologic type: Adenocarcinoma. Histologic grade: Grade1: well differentiated. Microscopic tumor extension: Tumor invades submucosa. Margins: Mucosal and deep resection margins are negative (see comment). Treatment effect: Not identified. Lymphovascular invasion: Not identified. Perineural invasion: Not identified. Pathologic stage: pT1 pNX. OPERATIVE PROCEDURE: Transanal excision of rectal polyp CLINICAL INFORMATION: Rectal polyp [K62.1] GROSS DESCRIPTION: Mid-rectal polyp Received in formalin and oriented by the surgeon is an oriented 2.8 x 2.5 x 0.3 cm trans-anal excision. The right side is inked blue, left side orange, proximal - green and distal - red. The distal margin is inked black. The mucosal surface demonstrates a 2.5 x 1.0 x 0.5 cm polypoid irene-brown raised lesion which occupies approximately 60% of the mucosal surface and is located 1 mm left side; 1 mm proximal; 5 mm distal and grossly appears to abut the right side. In addition, the mass is 1 mm from the deep surface. The specimen is entirely submitted as follows: 1 - perpendicular proximal right side; 2 - perpendicular proximal left side; 3 - perpendicular distal; 4-9 - remainder of specimen consisting of lesion in relationship to left to right and deep margins moving distally. [facility]:paris SCHROEDER M.D. (Electronic signature on file) Signed out: 08/13/2018 17:00 PRINTED: 08/13/2018 Page 1 of 1 [facility] Comment on above: Performed By: #### S URG #### [place] [address] Vital Signs Date Time Vital Sign Value Performing Clinician Facility 09-29-2024 17:22-0400 Body temperature 98.2 [degF] Dr. Andrew Cruz MD Work Phone: 4([phone])[phone] [place] [address] 09-29-2024 17:22-0400 Diastolic blood pressure 79 mm[Hg] Dr. Andrew Cruz MD Work Phone: 2(996)[phone] [place] [address] 09-29-2024 17:22-0400 Heart rate 89 /min Dr. Andrew Cruz MD Work Phone: 3(736)[phone] [place] [address] 09-29-2024 17:22-0400 Respiratory rate 15 /min Dr. Andrew Cruz MD Work Phone: 2(508)[phone] [place] [address] 09-29-2024 17:22-0400 SaO2% (BldA) [Mass fraction] 97 % Dr. Andrew Cruz MD Work Phone: 5([phone])[phone] [place] [address] 09-29-2024 17:22-0400 Systolic blood pressure 156 mm[Hg] Dr. Andrew Cruz MD Work Phone: 8(464)881-825546 [place] [address] 09-29-2024 15:14-0400 Body height 172.[address] Andrew Cruz MD Work Phone: 3(649)[phone] [place] [address] 09-29-2024 15:14-0400 Body mass index (BMI) [Ratio] 25.9 kg/m2 Dr. Andrew Cruz MD Work Phone: 3(215)[phone] [place] [address] 09-29-2024 15:14-0400 Body weight 77.[address] Andrew Cruz MD Work Phone: [facility] 07-02-2023 11:42-0400 Diastolic Blood Pressure Non-Invasive 91 mm[Hg] DR JUDAH RUBIO MD [facility] 07-02-2023 11:42-0400 Heart rate 78 /min DR JUDAH RUBIO MD [facility] 07-02-2023 11:42-0400 Respiratory rate 19 /min DR JUDAH RUBIO MD [facility] 07-02-2023 11:42-0400 Systolic Blood Pressure Non-Invasive 143 mm[Hg] DR JUDAH RUBIO MD [facility] 07-02-2023 11:36-0400 Diastolic Blood Pressure Non-Invasive 78 mm[Hg] DR JUDAH RUBIO MD [facility] 07-02-2023 11:36-0400 Heart rate 72 /min DR JUDAH RUBIO MD [facility] 07-02-2023 11:36-0400 Respiratory rate 14 /min DR JUDAH RUBIO MD [facility] 07-02-2023 11:36-0400 Systolic Blood Pressure Non-Invasive 124 mm[Hg] DR JUDAH RUBIO MD [facility] 07-02-2023 11:32-0400 Diastolic Blood Pressure Non-Invasive 65 mm[Hg] DR JUDAH RUBIO MD [facility] 07-02-2023 11:32-0400 Heart rate 70 /min DR JUDAH RUBIO MD [facility] 07-02-2023 11:32-0400 Respiratory rate 15 /min DR JUDAH RUBIO MD [facility] 07-02-2023 11:32-0400 Systolic Blood Pressure Non-Invasive 106 mm[Hg] DR JUDAH RUBIO MD [facility] 07-02-2023 11:15-0400 Respiratory Rate - Anes 20 br/min DR JUDAH RUBIO MD [facility] 07-02-2023 11:13-0400 Respiratory Rate - Anes 20 br/min DR JUDAH RUBIO MD [facility] 07-02-2023 11:12-0400 Respiratory Rate - Anes 20 br/min DR JUDAH RUBIO MD [facility] 07-02-2023 10:49-0400 Body height [address] JUDAH RUBIO MD [facility] 07-02-2023 10:35-[address] JUDAH RUBIO MD [facility] 07-02-2023 10:35-0400 Body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 for dry eyes as needed for dry eyes Unchanged pantoprazole (pantoprazole 40 mg oral enteric coated tablet) 1 tab(s) by mouth Once a day before a meal Unchanged sildenafil (sildenafil 20 mg oral tablet) See instructions 1 to 5 days daily as needed for erectile dysfunction Unchanged triamcinolone topical (triamcinolone 0.1% topical cream) 1 application Topical Two (2) times a day Psoriasis of scalp Duration: 14 Days apply thin film to affected area. MAX 14 days, then 7 days break Please take this list to your next doctor s visit. Bring all medications you take, including over the counter medications, herbals and other supplements with you to your doctor s visit. Patients and families are reminded to discard old lists and to update any records with all medication providers or retail pharmacies. Education Materials Near-Fainting with Uncertain Cause Fainting (syncope) is a temporary loss of consciousness (passing out). This happens when blood flowto the brain is reduced. Near-fainting (near-syncope) is like fainting, but you do not fully pass out. Instead, you feel like you are going to pass out, but do not actually lose consciousness. Signs and symptoms The following are symptoms of near-fainting: Feeling lightheaded or like you are going to faint Weak pulse Nausea Sweating Blurred vision or feeling like your vision is fading Palpitations Chest pain Hard time breathing Feeling cool and clammy Causes This happens when your blood pressure suddenly drops, and not enough blood flows to your brain. Common minor causes include: Sudden emotional stress such as fear, pain, panic, or the sight of blood Straining or overexertion, such as straining while using the toilet, coughing, or sneezing Standing up too quickly, or standing up for too long a time More serious causes include: Very slow, fast, or irregular heart rate (arrhythmia) Dehydration Significant blood loss Medicines, or a recent change in medicines. Medicines that can cause fainting include blood pressure or heart medicines. Heart attack Heart valve problems Remember, even minor causes can become serious if you fall and injure yourself, or are driving. Youmay need more tests. It is very important that you follow up with your doctor as advised. Home care The following guidelines will help you care for yourself at home: Rest today. Resume your normal activities as soon as you are feeling back to normal. If you become lightheaded or dizzy, lie down right away or sit with your head between your knees. Drink plenty of fluids and don't skip meals. Because the exact cause of your near fainting spell is not known, another spell could occur withoutwarning. To stay safe, do not drive a car or use dangerous equipment. Do not take a bath alone. Usea shower instead. Do not swim alone. You can resume these activities when your healthcare provider says that you are no longer in danger of having a near-fainting spell. Follow-up care Follow up with your healthcare provider, or as advised. Call 911 Call 911 if any of the following occur: Another near-fainting or full fainting spell occurs, and it is not explained by the common causes listed above Chest, arm, neck, jaw, back or abdominal pain Shortness of breath Weakness, tingling, or numbness in one side of the face, or in one arm or leg Slurred speech, confusion, trouble walking or seeing Seizure When to seek medical advice Call your healthcare provider right away if any of these occur: Changes in your medicines Occasional mild lightheadedness, especially when standing up too quickly or straining [phone] [facility]. [address] [place] [address]. All rights reserved. This information is not intended as a substitute for professional medical care. Always follow yourhealthcare professional's instructions. Additional Information VACCINATE! IT SAVES LIVES! Members of the community who have not yet received the COVID-19 vaccine and would like to receive it can visit one of [facility] vaccine clinics. There are many vaccine clinic locations within the [facility]. For locations and available times, please visit www.gettheshot.coronavirus.[place].gov/. It is important to note that some COVID mobile vaccine clinics are held outdoors and may be canceled in rainy or stormy conditions. To learn more about pediatric vaccinations (ages 5-11), we invite you to visit the [facility] webpage. [email or web address].[email or web address]/pages/[email or web address]-[email or web address]-Dkviy-[email or web address] stions.htmlTo learn more about the COVID-19 vaccine, we invite you to visit the CDC website for a list of frequently asked questions. https://www.cdc.gov/coronavirus/2019-ncov/vaccines/faq.html [facility] Patient Portal Access Instructions: Stay connected with your healthcare team and access your personal medical information anytime with the [facility] Patient Portal. If you would like a full copy of your medical records please contact the [facility] Medical Records Department Sunday through Sunday between 8a.m. and 4:30p.m. Please follow the directions below to access the portal: 1.Access the email account you provided upon registration to the [facility].2.Look for an invitation email from [facility].3.Open the email and access the invitation link: Accept Invitation to [facility]4.Fill in the required calvert to create your account. Sign into [email or web address] with your username and password that you created in the above steps to stay up to date. You can then view a summary of results, a summary of your visits, and the ability to download your summaries to your computer or send the information securely to a physician. Remember that your healthcare information is confidential, so carefully consider who you will allow to register on the [facility] Patient Portal for access to your information. You can also access the [facility] Patient Portal on the [employer] daniel. Simply click on Health Records under [employer] and then click on the [employer] logo. HOW TO SAFELY DISPOSE OF PRESCRIPTION MEDICATIONS Please use one of the following methods to safely dispose of your unused medications. 1.Use a drug disposal kit: the drug disposal pouch allows you to safely discard your old and unuseddrugs. Ask your nurse to give you one when you are discharged.2.Visit a local take-back location: Many local pharmacies and police departments have programs that collect old and unwanted prescriptiondrugs. Call your local pharmacy or go to http://bit.ly/9R3To3r to find one close to you.3.Make use of household items: Use cat litter or old coffee grounds to dispose medications if other options arenot available. Mix your drugs with these household products, seal them in an airtight container andthrow it into the garbage. Call [facility]: [phone] to be sure your drugs can be disposed of in this way. Some medicines may require a different approach.4.Never flush your medications down the toilet. IF YOU HAVE BEEN PRESCRIBED AN OPIOIDS FOR PAIN If you have been prescribed an opioid (such as hydrocodone, oxycodone or morphine), it is critical to understand the possible side effects and risks of opioid pain medications. Even when taken as directed, opioids can have several side effects including: Tolerance, meaning you might need to take more of a medication for the same pain relief. Nausea, vomiting and/or constipation. Sleepiness, dizziness, dry mouth, confusion, depression or itching. Physical dependence, meaning you have withdrawal symptoms when a medication is stopped ? this can develop within a few days. KNOW YOUR RESPONSIBILITIES It is important to know exactly how much and how often to take the opioid pain medications you are prescribed. Never take opioids in higher amounts or more often than prescribed. Do not combine opioids with alcohol or other drugs that cause drowsiness, such as benzodiazepines, also known as benzos,including diazepam and alprazolam, muscle relaxants or sleep aids. Never sell or share prescriptionopioids. This is illegal. Store opioids in a secure place and out of reach of others (including children, family, friends and visitors). The last page(s) of this document has been signed and retained as a CHART COPY Signatures Patient Education Materials Near Syncope, Unknown Medication Leaflets My discharge plan and instructions have been reviewed and explained to me and IRUBEN CHARLES M understand my current condition and have read and understand these discharge instructions. I have received a written copy of the plan/instructions. If I have questions, I am aware that I should contact my doctor. 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 There is no overt edema. No focal consolidation. No pleural effusion or pneumothorax. Multiple healed right-sided rib fracture deformities. Healed right mid clavicle fracture deformity. IMPRESSION: No acute cardiopulmonary process. Interpreted by: Grabiel Jaramillo Preliminary Report By: Grabiel Jaramillo Electronically signed By Grabiel Jaramillo Dictated Date: 07/08/2024 1:26:56 PM Prelim Date: 07/08/2024 1:35:35 PM Sign Date: 07/08/2024 1:35:35 PM Ordering Provider: DEREK QUINTERO [facility]05-27-2025 Note* Exam Date Time Procedure Performing Provider Status 07/08/24 1:[address] Head or Brain w/o Contrast LUZ MARINA PINZON MD; Auth (Verified) [id number] ORIGINAL EXAMINATION: CT HEAD TECHNIQUE: Axial CT images from skull base to vertex without IV contrast. This exam was performed according to our departmental dose optimization program, and includes the following measures where applicable: automated exposure control, adjustment of the mAs and/or kVp according to patient size and/or exam, and an iterative reconstruction algorithm. COMPARISON: None HISTORY: ORDERING SYSTEM PROVIDED HISTORY: Reason for Exam: lightheaded FINDINGS: Parenchyma: No acute intracranial hemorrhage, midline shift, mass effect or acute ischemic infarct is demonstrated. The back-white matter junctions are preserved. No space occupying intra-axial masses or extra-axial fluid collections are seen. A remote transcortical infarct of the right inferior cerebellum is noted. Remote infarcts also involve the left basal ganglia. Mild parenchymal volume loss is noted. Scattered areas of decreased attenuation are identified in the subcortical, periventricular, and deep white matter statistically reflect mild chronic microvascular white matter ischemic disease. Ventricles: Enlarged 4th ventricle secondary to adjacent encephalomalacia. The rest of the ventricles are proportionally prominent to the sulci on the basis of parenchymal volume loss. Vessels: Atherosclerotic calcifications of the bilateral ICA siphons. Orbits: Unremarkable. Calvarium: Unremarkable. Paranasal sinuses: Completely opacified right maxillary sinus. Mastoid sinuses: Clear. IMPRESSION: 1. No acute intracranial pathology. 2. 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 3. Remote infarcts of the left basal ganglia. 4. Mild parenchymal volume loss and chronic microvascular white matter ischemic disease. 5. Completely opacified right maxillary sinus. Interpreted by: Luz Marina Pinzon MD Preliminary Report By: Luz Marina Pinzon MD Electronically signed By Luz Marina Pinzon MD Dictated Date: 07/08/2024 1:19:30 PM Prelim Date: 07/08/2024 1:22:00 PM Sign Date: 07/08/2024 1:22:00 PM Ordering Provider: DEREK QUINTERO [facility]05-27-2025 Note* Exam Date Time Procedure Performing Provider Status 07/08/24 12:34 PM EKG [ED AOH] - CV TOM LUCAS DO; [facility] (Verified) ECG Final Report Sinus rhythm Multiform ventricular premature complexes Prolonged [place] interval Borderline right axis deviation Borderline low voltage, extremity leads Probable anteroseptal infarct, old Baseline wander in lead(s) V3 Electronic Signature: TOM LUCAS DO 07/08/2024 12:40:51 [facility]08-26-2024 Note ORIGINAL EXAMINATION: BONE DENSITOMETRY 10/08/2023 2:30 pm TECHNIQUE: A bone density dual x-ray absorptiometry (DEXA) scan was performed of the axial (e.g. hips, spine) and/or appendicular (e.g. radius) skeleton as appropriate. COMPARISON: None available HISTORY: ORDERING SYSTEM PROVIDED HISTORY: Reason for Exam: Osteoporosis Screening FINDINGS: BMD (g/cm2) Lumbar Spine: 0.921. T Score Lumbar Spine: -1.5 BMD (g/cm2) Left Femoral Neck: 0.683. T Score Left Femoral Neck: -1.8 BMD (g/cm2) Left Hip: 0.745. T Score Left Hip: -1.9 FRAX: 10 year fracture risk assessment Major osteoporotic fracture: 7.8% Hip fracture: 2.6% IMPRESSION: Osteopenia by WHO criteria. World Health Organization criteria: (Comparing with young normal sex matched population) - Normal: T-score at or above -1 SD (standard deviation) - Osteopenia: T-score between -1 and -2.5 SD - Osteoporosis: T-score at or below -2.5 SD The NOF recommends that FDA-approved medical therapies be considered in post-menopausal women and men age >/= 50 years with a: * Hip or vertebral fracture, or * T-score of /= 20% for major osteoporotic fractures or * >/= 3% for hip fractures All treatment decisions require clinical judgement and consideration of individual patient factors, including patient preferences, comorbidities, previous drug use, risk factors not captured in the FRAX registered model (e.g., frailty, falls, vitamin D deficiency, increased bone turnover, interval significant decline in bone density) and possible under- or over-estimation of fracture risk by FRAX. I have personally reviewed the images of this examination and agree with the resident's findings and interpretation. Interpreted by: Blaise Bautista DO Preliminary Report By: Kristopher Orta Electronically signed By Blaise Bautista DO Dictated Date: 10/08/2023 3:17:46 PM Prelim Date: 10/08/2023 3:26:35 PM Sign Date: 10/08/2023 3:26:35 PM Ordering Provider: [facility]05-20-2024 Evaluation + Plan noteExtracted from: Title:History and Physical Author:ZITA RUBIO MD Date:07/02/23 Orders: Lactated Ringers Infusion 1,000 mL, 1000 mL, Intravenous Communication Order (scheduled), 07/02/23 10:50:00 EDT, Once, 07/02/23 10:50:00 EDT, Urine test or waiver for women of child bearing age Communication Order (scheduled), 07/02/23 10:50:00 EDT, Once, 07/02/23 10:50:00 EDT, Fasting Blood Sugar prior to procedur if patient is diabetic Communication Order (scheduled), 07/02/23 10:50:00 EDT, Once, 07/02/23 10:50:00 EDT, Pathology Tissue Request Consult to Anesthesia, 07/02/23 10:50:00 EDT, *Other (specify in special instructions), Provide Anesthesia during Procedure Sign Consent, 07/02/23 10:50:00 EDT, Once, For Colonoscopy 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 Consent conference held. Future Appointments Appointment Date:08/31/2023 09:30:00 AM Scheduled Provider: Location:[place] Appointment Type:PC Nurse Lab Appointment Date:09/07/2023 01:30:00 PM Scheduled Provider:AVILA HWANG DO Location:[place] Appointment Type:PC OV Future Scheduled Tests Laboratory* LDL Cholesterol (Direct) 06/06/23 * Basic Metabolic Panel 06/06/23 * Ferritin 06/06/23 * Folate Level 06/06/23 * A1C Hemoglobin 06/06/23 * Lipid Profile 06/06/23 * Iron Studies 06/06/23 * Albumin/Creatinine Ratio, Random Urine 07/11/22 * Vitamin D Level 06/06/23 [facility] 05-20-2024 Hospital Discharge instructions Patient Education 07/02/2023 11:44:52 Nausea and Vomiting, Adult Nausea and Vomiting, Adult Nausea is the feeling that you have an upset stomach or that you are about to vomit. Vomiting is when stomach contents are thrown up and out of the mouth as a result of nausea. Vomiting can make you feel weak and cause you to become dehydrated. Dehydration can make you feel tired and thirsty, cause you to have a dry mouth, and decrease how often you urinate. Older adults and people with other diseases or a weak disease-fighting system (immune system) are at higher risk for dehydration. It is important to treat your nausea and vomiting as told by your health care provider. Follow these instructions at home: Watch your symptoms for any changes. Tell your health care provider about them. Follow these instructions to care for yourself at home. Eating and drinking Take an oral rehydration solution (ORS). This is a drink that is sold at pharmacies and retail stores. Drink clear fluids slowly and in small amounts as you are able. Clear fluids include water, ice chips, low-calorie sports drinks, and fruit juice that has water added (diluted fruit juice). Eat bland, rshx-xv-veqrjj foods in small amounts as you are able. These foods include bananas, applesauce, rice, lean meats, toast, and crackers. Avoid fluids that contain a lot of sugar or caffeine, such as energy drinks, sports drinks, and soda. Avoid alcohol. Avoid spicy or fatty foods. General instructions Take vvty-hzb-xiaaymn and prescription medicines only as told by your health care provider. Drink enough fluid to keep your urine pale yellow. Wash your hands often using soap and water. If soap and water are not available, use hand community relations manager. Make sure that all people in your household wash their hands well and often. Rest at home while you recover. Watch your condition for any changes. Breathe slowly and deeply when you feel nauseated. Keep all follow-up visits as told by your health care provider. This is important. Contact a health care provider if: Your symptoms get worse. You have new symptoms. You have a fever. You cannot drink fluids without vomiting. Your nausea does not go away after 2 days. You feel light-headed or dizzy. You have a headache. You have muscle cramps. You have a rash. You have pain while urinating. Get help right away if: You have pain in your chest, neck, arm, or jaw. You feel extremely weak or you faint. You have persistent vomiting. You have vomit that is bright red or looks like black coffee grounds. You have bloody or black stools or stools that look like tar. You have a severe headache, a stiff neck, or both. You have severe pain, cramping, or bloating in your abdomen. You have difficulty breathing, or you are breathing very quickly. Your heart is beating very quickly. Your skin feels cold and clammy. You feel confused. You have signs of dehydration, such as: ?Dark urine, very little urine, or no urine. ?Cracked lips. ?Dry mouth. ?Sunken eyes. ?Sleepiness. ?Weakness. These symptoms may represent a serious problem that is an emergency. Do not wait to see if the symptoms will go away. Get medical help right away. Call your local emergency services (911 in the [place] Do not drive yourself to the hospital. Summary Nausea is the feeling that you have an upset stomach or that you are about to vomit. As nausea getsworse, it can lead to vomiting. Vomiting can make you feel weak and cause you to become dehydrated. Follow instructions from your health care provider about eating and drinking to prevent dehydration. Take fhia-rbx-pxmjumt and prescription medicines only as told by your health care provider. Contact your health care provider if your symptoms get worse, or you have new symptoms. Keep all follow-up visits as told by your health care provider. This is important. This information is not intended to replace advice given to you by your health care provider. Make sure you discuss any questions you have with your health care provider. Document Released: 01/29/2006 Document Revised: 05/23/2019 Document Reviewed: 07/09/2018 [employer] Patient Education 2020 [employer]. 07/02/2023 11:44:36 Monitored Anesthesia Care, Care After Monitored Anesthesia Care, Care After These instructions provide you with information about caring for yourself after your procedure. Your health care provider may also give you more specific instructions. Your treatment has been plannedaccording to current medical practices, but problems sometimes occur. Call your health care provider if you have any problems or questions after your procedure. What can I expect after the procedure? After your procedure, you may: Feel sleepy for several hours. Feel clumsy and have poor balance for several hours. Feel forgetful about what happened after the procedure. Have poor judgment for several hours. Feel nauseous or vomit. Have a sore throat if you had a breathing tube during the procedure. Follow these instructions at home: For at least 24 hours after the procedure: Have a responsible adult stay with you. It is important to have someone help care for you until youare awake and alert. Rest as needed. Do not: ?Participate in activities in which you could fall or become injured. ?Drive. ?Use heavy machinery. ?Drink alcohol. ?Take sleeping pills or medicines that cause drowsiness. ?Make important decisions or sign legal documents. ?Take care of children on your own. Eating and drinking Follow the diet that is recommended by your health care provider. If you vomit, drink water, juice, or soup when you can drink without vomiting. Make sure you have little or no nausea before eating solid foods. General instructions Take eiar-cqe-kjrgaoi and prescription medicines only as told by your health care provider. If you have sleep apnea, surgery and certain medicines can increase your risk for breathing problems. Follow instructions from your health care provider about wearing your sleep device: ?Anytime you are sleeping, including during daytime naps. ?While taking prescription pain medicines, sleeping medicines, or medicines that make you drowsy. If you smoke, do not smoke without supervision. Keep all follow-up visits as told by your health care provider. This is important. Contact a health care provider if: You keep feeling nauseous or you keep vomiting. You feel light-headed. You develop a rash. You have a fever. Get help right away if: You have trouble breathing. Summary For several hours after your procedure, you may feel sleepy and have poor judgment. Have a responsible adult stay with you for at least 24 hours or until you are awake and alert. This information is not intended to replace advice given to you by your health care provider. Make sure you discuss any questions you have with your health care provider. Document Released: 05/21/2016 Document Revised: 04/29/2018 Document Reviewed: 05/21/2016 [employer] Patient Education 2020 Social Tools. 07/02/2023 11:44:33 Colonoscopy, Adult, Care After Colonoscopy, Adult, Care After This sheet gives you information about how to care for yourself after your procedure. Your health care provider may also give you more specific instructions. If you have problems or questions, contact your health care provider. What can I expect after the procedure? After the procedure, it is common to have: A small amount of blood in your stool for 24 hours after the procedure. Some gas. Mild abdominal cramping or bloating. Follow these instructions at home: General instructions For the first 24 hours after the procedure: ?Do not drive or use machinery. ?Do not sign important documents. ?Do not drink alcohol. ?Do your regular daily activities at a slower pace than normal. ?Eat soft, ugea-pw-ntovxs foods. Take klfr-uua-bkrzgxr or prescription medicines only as told by your health care provider. Relieving cramping and bloating Try walking around when you have cramps or feel bloated. Apply heat to your abdomen as told by your health care provider. Use a heat source that your healthcare provider recommends, such as a moist heat pack or a heating pad. ?Place a towel between your skin and the heat source. ?Leave the heat on for 20 30 minutes. ?Remove the heat if your skin turns bright red. This is especially important if you are unable to feel pain, heat, or cold. You may have a greater risk of getting burned. Eating and drinking Drink enough fluid to keep your urine pale yellow. Resume your normal diet as instructed by your health care provider. Avoid heavy or fried foods thatare hard to digest. Avoid drinking alcohol for as long as instructed by your health care provider. Contact a health care provider if: You have blood in your stool 2 3 days after the procedure. Get help right away if: You have more than a small spotting of blood in your stool. You pass large blood clots in your stool. Your abdomen is swollen. You have nausea or vomiting. You have a fever. You have increasing abdominal pain that is not relieved with medicine. Summary After the procedure, it is common to have a small amount of blood in your stool. You may also have mild abdominal cramping and bloating. For the first 24 hours after the procedure, do not drive or use machinery, sign important documents, or drink alcohol. Contact your health care provider if you have a lot of blood in your stool, nausea or vomiting, a fever, or increased abdominal pain. This information is not intended to replace advice given to you by your health care provider. Make sure you discuss any questions you have with your health care provider. Document Released: 09/12/2004 Document Revised: 11/21/2017 Document Reviewed: 04/11/2016 [employer] Patient Education 2020 Social Tools. Follow Up Care 05/16/2023 07:43:25 With:CHRISTIAN MCHUGH MD Address: [address] [address]- [phone] When: only if needed [facility] 05-20-2024 Summary of episode note Discharge Instructions Thank you for allowing [facility] to assist you with your healthcare needs. The following is importantdischarge information regarding your hospital visit. Your Care Team AVILA HWANG DO What to do next Scheduled Follow-Up Appointments Appointment Type When With Where Contact Information StatusPC Nurse Lab 08/31/2023 09:30 AM EDT [address] [phone] Confirmed PC OV 09/07/2023 01:30 PM EDT AVILA HWANG DO [address] [phone] Confirmed Follow Up Appointments Follow Up with CHRISTIAN MCHUGH MD When: When:Only if needed Where:[address] [place] [address] [phone] The Following Activity and Diet Have Been Ordered for You Discharge Activity - Ordered -- Other, Follow the post-operative/post-procedure activity instructions provided by your physician's office., 07/02/23 11:16:00 EDT Discharge Diet - Ordered -- Follow the post-operative/post-procedure diet instructions provided by your physician's office.,07/02/23 11:16:00 EDT Allergies NKA Medications Please ask your primary doctor or pharmacist before taking any other medication not listed, including over the counter drugs, herbal medications, vitamins and or supplements as they may interact withyour home medications. What How Much When Why Instructions Last Dose Unchanged amLODIPine (amLODIPine 10 mg oral tablet) 1 tab(s) by mouth Once a day Unchanged aspirin 81 Milligram by mouth Once a day with a meal Unchanged atorvastatin (atorvastatin 40 mg oral tablet) 1 tab(s) by mouth Once a day Unchanged dapagliflozin (Farxiga 5 mg oral tablet) 1 tab(s) by mouth Once a day Chronic kidney disease, stage 3b Unchanged dexamethasone/ neomycin/ polymyxin B ophthalmic (dexamethasone/ neomycin/ polymyxin B 1 mg-3.5 mg-10,000 units/ g ophthalmic ointment) Unchanged losartan (losartan 50 mg oral tablet) 2 tab(s) by mouth Once a day Unchanged Misc Medication allergy pill, doesn't know the name Unchanged pantoprazole (pantoprazole 40 mg oral enteric coated tablet) 1 tab(s) by mouth Once a day before a meal Unchanged sildenafil (sildenafil 20 mg oral tablet) See instructions 1 to 5 days daily as needed for erectile dysfunction Unchanged triamcinolone topical (triamcinolone 0.1% topical cream) 1 application Topical Two (2) times a day Psoriasis of scalp Duration: 14 Days apply thin film to affected area. MAX 14 days, then 7 days break Please take this list to your next doctor s visit. Bring all medications you take, including over the counter medications, herbals and other supplements with you to your doctor s visit. Patients and families are reminded to discard old lists and to update any records with all medication providers or retail pharmacies. Education Materials Nausea and Vomiting, Adult Nausea is the feeling that you have an upset stomach or that you are about to vomit. Vomiting is when stomach contents are thrown up and out of the mouth as a result of nausea. Vomiting can make you feel weak and cause you to become dehydrated. Dehydration can make you feel tired and thirsty, cause you to have a dry mouth, and decrease how often you urinate. Older adults and people with other diseases or a weak disease-fighting system (immune system) are at higher risk for dehydration. It is important to treat your nausea and vomiting as told by your health care provider. Follow these instructions at home: Watch your symptoms for any changes. Tell your health care provider about them. Follow these instructions to care for yourself at home. Eating and drinking Take an oral rehydration solution (ORS). This is a drink that is sold at pharmacies and retail stores. Drink clear fluids slowly and in small amounts as you are able. Clear fluids include water, ice chips, low-calorie sports drinks, and fruit juice that has water added (diluted fruit juice). Eat bland, eori-sd-vzzlxx foods in small amounts as you are able. These foods include bananas, applesauce, rice, lean meats, toast, and crackers. Avoid fluids that contain a lot of sugar or caffeine, such as energy drinks, sports drinks, and soda. Avoid alcohol. Avoid spicy or fatty foods. General instructions Take oxty-vbg-acvibdg and prescription medicines only as told by your health care provider. Drink enough fluid to keep your urine pale yellow. Wash your hands often using soap and water. If soap and water are not available, use hand community relations manager. Make sure that all people in your household wash their hands well and often. Rest at home while you recover. Watch your condition for any changes. Breathe slowly and deeply when you feel nauseated. Keep all follow-up visits as told by your health care provider. This is important. Contact a health care provider if: Your symptoms get worse. You have new symptoms. You have a fever. You cannot drink fluids without vomiting. Your nausea does not go away after 2 days. You feel light-headed or dizzy. You have a headache. You have muscle cramps. You have a rash. You have pain while urinating. Get help right away if: You have pain in your chest, neck, arm, or jaw. You feel extremely weak or you faint. You have persistent vomiting. You have vomit that is bright red or looks like black coffee grounds. You have bloody or black stools or stools that look like tar. You have a severe headache, a stiff neck, or both. You have severe pain, cramping, or bloating in your abdomen. You have difficulty breathing, or you are breathing very quickly. Your heart is beating very quickly. Your skin feels cold and clammy. You feel confused. You have signs of dehydration, such as: ? Dark urine, very little urine, or no urine. ? Cracked lips. ? Dry mouth. ? Sunken eyes. ? Sleepiness. ? Weakness. These symptoms may represent a serious problem that is an emergency. Do not wait to see if the symptoms will go away. Get medical help right away. Call your local emergency services (911 in the [place] Do not drive yourself to the hospital. Summary Nausea is the feeling that you have an upset stomach or that you are about to vomit. As nausea getsworse, it can lead to vomiting. Vomiting can make you feel weak and cause you to become dehydrated. Follow instructions from your health care provider about eating and drinking to prevent dehydration. Take uxra-cle-mbvaqsy and prescription medicines only as told by your health care provider. Contact your health care provider if your symptoms get worse, or you have new symptoms. Keep all follow-up visits as told by your health care provider. This is important. This information is not intended to replace advice given to you by your health care provider. Make sure you discuss any questions you have with your health care provider. Document Released: 01/29/2006 Document Revised: 05/23/2019 Document Reviewed: 07/09/2018 [employer] Patient Education 2020 [employer] Monitored Anesthesia Care, Care After These instructions provide you with information about caring for yourself after your procedure. Your health care provider may also give you more specific instructions. Your treatment has been plannedaccording to current medical practices, but problems sometimes occur. Call your health care provider if you have any problems or questions after your procedure. What can I expect after the procedure? After your procedure, you may: Feel sleepy for several hours. Feel clumsy and have poor balance for several hours. Feel forgetful about what happened after the procedure. Have poor judgment for several hours. Feel nauseous or vomit. Have a sore throat if you had a breathing tube during the procedure. Follow these instructions at home: For at least 24 hours after the procedure: Have a responsible adult stay with you. It is important to have someone help care for you until youare awake and alert. Rest as needed. Do not: ? Participate in activities in which you could fall or become injured. ? Drive. ? Use heavy machinery. ? Drink alcohol. ? Take sleeping pills or medicines that cause drowsiness. ? Make important decisions or sign legal documents. ? Take care of children on your own. Eating and drinking Follow the diet that is recommended by your health care provider. If you vomit, drink water, juice, or soup when you can drink without vomiting. Make sure you have little or no nausea before eating solid foods. General instructions Take jcoi-rfy-gpizccz and prescription medicines only as told by your health care provider. If you have sleep apnea, surgery and certain medicines can increase your risk for breathing problems. Follow instructions from your health care provider about wearing your sleep device: ? Anytime you are sleeping, including during daytime naps. ? While taking prescription pain medicines, sleeping medicines, or medicines that make you drowsy. If you smoke, do not smoke without supervision. Keep all follow-up visits as told by your health care provider. This is important. Contact a health care provider if: You keep feeling nauseous or you keep vomiting. You feel light-headed. You develop a rash. You have a fever. Get help right away if: You have trouble breathing. Summary For several hours after your procedure, you may feel sleepy and have poor judgment. Have a responsible adult stay with you for at least 24 hours or until you are awake and alert. This information is not intended to replace advice given to you by your health care provider. Make sure you discuss any questions you have with your health care provider. Document Released: 05/21/2016 Document Revised: 04/29/2018 Document Reviewed: 05/21/2016 [employer] Patient Education 2020 [employer] Colonoscopy, Adult, Care After This sheet gives you information about how to care for yourself after your procedure. Your health care provider may also give you more specific instructions. If you have problems or questions, contact your health care provider. What can I expect after the procedure? After the procedure, it is common to have: A small amount of blood in your stool for 24 hours after the procedure. Some gas. Mild abdominal cramping or bloating. Follow these instructions at home: General instructions For the first 24 hours after the procedure: ? Do not drive or use machinery. ? Do not sign important documents. ? Do not drink alcohol. ? Do your regular daily activities at a slower pace than normal. ? Eat soft, hpoz-ci-bvyxjo foods. Take adyl-fto-zlhbwxj or prescription medicines only as told by your health care provider. Relieving cramping and bloating Try walking around when you have cramps or feel bloated. Apply heat to your abdomen as told by your health care provider. Use a heat source that your healthcare provider recommends, such as a moist heat pack or a heating pad. ? Place a towel between your skin and the heat source. ? Leave the heat on for 20 30 minutes. ? Remove the heat if your skin turns bright red. This is especially important if you are unable to feel pain, heat, or cold. You may have a greater risk of getting burned. Eating and drinking Drink enough fluid to keep your urine pale yellow. Resume your normal diet as instructed by your health care provider. Avoid heavy or fried foods thatare hard to digest. Avoid drinking alcohol for as long as instructed by your health care provider. Contact a health care provider if: You have blood in your stool 2 3 days after the procedure. Get help right away if: You have more than a small spotting of blood in your stool. You pass large blood clots in your stool. Your abdomen is swollen. You have nausea or vomiting. You have a fever. You have increasing abdominal pain that is not relieved with medicine. Summary After the procedure, it is common to have a small amount of blood in your stool. You may also have mild abdominal cramping and bloating. For the first 24 hours after the procedure, do not drive or use machinery, sign important documents, or drink alcohol. Contact your health care provider if you have a lot of blood in your stool, nausea or vomiting, a fever, or increased abdominal pain. This information is not intended to replace advice given to you by your health care provider. Make sure you discuss any questions you have with your health care provider. Document Released: 09/12/2004 Document Revised: 11/21/2017 Document Reviewed: 04/11/2016 Elsevier Patient Education 2020 [employer] Additional Information VACCINATE! IT SAVES LIVES! Members of the community who have not yet received the COVID-19 vaccine and would like to receive it can visit one of [facility] vaccine clinics. There are many vaccine clinic locations within the [facility]. For locations and available times, please visit https://[email or web address].[place].gov/. It is important to note that some COVID mobile vaccine clinics are held outdoors and may be canceled in rainy or stormy conditions. To learn more about pediatric vaccinations (ages 5-11), we invite you to visit the [facility] webpage. https://www.[facility].org/[email or web address] stions.htmlTo learn more about the COVID-19 vaccine, we invite you to visit the CDC website for a list of frequently asked questions.https://www.cdc.gov/coronavirus/2019-ncov/vaccines/faq.html [facility] Patient Portal Access Instructions: Stay connected with your healthcare team and access your personal medical information anytime with the [facility] Patient Portal. Please follow the directions below to create your [facility] account: 1.Access the email account you provided upon registration to the hospital/physician office.2.Look for an invitation email from [facility].3.Open the email and access the invitation link: AcceptInvitation to [facility].4.Fill in the required calvert to create your account. To access your account, visit [email or web address]. Click the blue button labeled Access Patient Portal and then log in with the username and password that you created in the steps above. You will be able to view your test results, lab results, a summary of your visits, upcoming appointments and more. There is also a convenient messaging option where you can send secure messages to your p rovider. In addition, you will have the ability to download any documents or summaries to your computer and/or send the information securely to a physician. Remember that your healthcare information is confidential, so carefully consider who you will allowto register on the [facility] Patient Portal for access to your information. You can also access the [facility] Patient Portal on the [facility] [place] [facility] daniel. Simply click on Patient Portal and then log into your account. If you would like to receive a full copy of your medical records, please contact the [facility] Medical Records Department by calling [phone], Sunday through Sunday between 8 a.m. and 4:30 p.m. HOW TO SAFELY DISPOSE OF PRESCRIPTION MEDICATIONS Please use one of the following methods to safely dispose of your unused medications. 1.Use a drug disposal kit: the drug disposal pouch allows you to safely discard your old and unuseddrugs. Ask your nurse to give you one when you are discharged.2.Visit a local take-back location: Many local pharmacies and police departments have programs that collect old and unwanted prescriptiondrugs. Call your local pharmacy or go to http://[employer]5V5Cb8s to find one close to you.3.Make use of household items: Use cat litter or old coffee grounds to dispose medications if other options arenot available. Mix your drugs with these household products, seal them in an airtight container andthrow it into the garbage. Call [facility]: [phone] to be sure your drugs can be disposed of in this way. Some medicines may require a different approach.4.Never flush your medications down the toilet. IF YOU HAVE BEEN PRESCRIBED AN OPIOID FOR PAIN If you have been prescribed an opioid (such as hydrocodone, oxycodone or morphine), it is critical to understand the possible side effects and risks of opioid pain medications. Even when taken as directed, opioids can have several side effects including: Tolerance, meaning you might need to take more of a medication for the same pain relief. Nausea, vomiting and/or constipation. Sleepiness, dizziness, dry mouth, confusion, depression or itching. Physical dependence, meaning you have withdrawal symptoms when a medication is stopped, can develop within a few days. KNOW YOUR RESPONSIBILITIES It is important to know exactly how much and how often to take the opioid pain medications you are prescribed. Never take opioids in higher amounts or more often than prescribed. Do not combine opioids with alcohol or other drugs that cause drowsiness, such as benzodiazepines, also known as benzos, including diazepam and alprazolam, muscle relaxants or sleep aids. Never sell or share prescription opioids. This is illegal. Store opioids in a secure place and out of reach of others (including children, family, friends and visitors). The last page of this document has been signed and retained as a CHART COPY. Signatures Patient Education Materials Nausea and Vomiting, Adult Monitored Anesthesia Care, Care After Colonoscopy, Adult, Care After Medication Leaflets My discharge plan and instructions have been reviewed and explained to me and IALEXANDER MIRANDA understand my current condition and have read and understand these discharge instructions. I have received a written copy of the plan/instructions. If I have questions, I am aware that I should contact my doctor. 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 Please see associated history and physical Consent: An Informed consent conference was held all questions were addressed and the patient agreed to proceed. We discussed the potential risks including but not limited to respiratory depression, infection, bleeding, perforation, potential need for surgery, and even . Medications: SEE ANESTHESIA RECORD Technique and findings: The Olympus video colonoscope was insinuated through the anus and advanced to the cecum without difficulty. The preparation was good. Simethicone was utilized. Retroflexion inthe ascending colon showed no pathology except for scattered diverticuli. He did have scattered diverticuli throughout the transverse colon also. On a careful fold by fold examination no polyps or masses were identified. There is mild mucosal hyperemia in the rectum. Multiple examinations there showed no masses or evidence of recurrent neoplasm. Digital rectal exam revealed no masses. Retroflexion in the rectum was performed. After decompressing the colon the endoscope was withdrawn. There were no additional findings and there were no apparent complications. Diagnoses and plan: He has diverticulosis coli. No neoplasia was identified. Based on his prior history, follow-up colonoscopy is appropriate in 5 years dependent upon his health. 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 Assessment Postanesthesia assessment Vitals: Vital signs from flowsheet : Vital Signs 07/02/2023 11:15 EDT Heart Rate Monitored 79 bpm bpm Respiratory Rate - Anes 20 br/min br/min 07/02/2023 11:13 EDT Heart Rate Monitored 88 bpm bpm Respiratory Rate - Anes 20 br/min br/min 07/02/2023 11:12 EDT Heart Rate Monitored 88 bpm bpm Respiratory Rate - Anes 20 br/min br/min 07/02/2023 11:11 EDT Heart Rate Monitored 88 bpm bpm Respiratory Rate - Anes 20 br/min br/min 07/02/2023 11:10 EDT Heart Rate Monitored 85 bpm bpm Respiratory Rate - Anes 20 br/min br/min Systolic Blood Pressure Non-Invasive 87 mmHg mmHg Diastolic Blood Pressure Non-Invasive 56 mmHg mmHg 07/02/2023 11:05 EDT Heart Rate Monitored 87 bpm bpm Respiratory Rate - Anes 19 br/min br/min Systolic Blood Pressure Non-Invasive 100 mmHg mmHg Diastolic Blood Pressure Non-Invasive 63 mmHg mmHg 07/02/2023 11:04 EDT Heart Rate Monitored 87 bpm bpm Respiratory Rate - Anes 19 br/min br/min 07/02/2023 11:03 EDT Heart Rate Monitored 88 bpm bpm Respiratory Rate - Anes 19 br/min br/min 07/02/2023 11:02 EDT Heart Rate Monitored 87 bpm bpm Respiratory Rate - Anes 19 br/min br/min Systolic Blood Pressure Non-Invasive 153 mmHg mmHg Diastolic Blood Pressure Non-Invasive 80 mmHg mmHg 07/02/2023 11:01 EDT Systolic Blood Pressure Non-Invasive 111 mmHg mmHg Diastolic Blood Pressure Non-Invasive 66 mmHg mmHg 07/02/2023 10:35 EDT Temperature Oral 37.2 DegC Peripheral Pulse Rate 90 bpm Respiratory Rate 20 br/min Systolic Blood Pressure Non-Invasive 142 mmHg HI Diastolic Blood Pressure Non-Invasive 79 mmHg Blood Pressure Location Left arm . Mental status: alert & oriented x 4. Respiratory function: lungs are clear to auscultation. Respiratory support: none. CV function: Normal rate. Cardiovascular support: none. Pain. Nausea status: see nursing documentation of medications. Postoperative hydration status: within normal limits. Digitally Signed by KARISHMA GARCIA on 07/02/2023 11:18 AM [facility]05-20-2024 Anesthesiology Consult note Patient: ALEXANDER MIRANDA Age: 72 years Sex: Male : 1950 Associated Diagnoses: None Author: KARISHMA GARCIA Preoperative Information Time of last food or liquid consumption: 07/01/2023 23:59:00 Anesthesia history Patient's history: negative. Family's history: negative. Review of Systems Ear/Nose/Mouth/Throat: Negative except as documented in history of present illness. Respiratory: Negative except as documented in history of present illness. Cardiovascular: Negative except as documented in history of present illness. Gastrointestinal: Negative except as documented in history of present illness. Genitourinary: Negative except as documented in history of present illness. Endocrine: Negative except as documented in history of present illness. Musculoskeletal: Negative except as documented in history of present illness. Integumentary: Negative except as documented in history of present illness. Neurologic: Negative except as documented in history of present illness. Health Status Allergies: Allergic Reactions (Selected) NKA, Allergies (1) ActiveReaction NKANone Documented Current medications: (Selected) Inpatient Medications Ordered Lactated Ringers Infusion 1,000 mL: 20 mL/hr, Intravenous Prescriptions Prescribed Farxiga 5 mg oral tablet: 5 mg, 1 tab(s), Oral, qDay, 100 tab(s), 0 Refill(s) amLODIPine 10 mg oral tablet: 10 mg, 1 tab(s), Oral, qDay, 100 tab(s), 0 Refill(s) atorvastatin 40 mg oral tablet: 40 mg, 1 tab(s), Oral, qDay, 100 tab(s), 0 Refill(s) losartan 50 mg oral tablet: 100 mg, 2 tab(s), Oral, qDay, 200 tab(s), 1 Refill(s) pantoprazole 40 mg oral enteric coated tablet: 40 mg, 1 tab(s), Oral, qDayAC, 90 tab(s), 3 Refill(s) sildenafil 20 mg oral tablet: See Instructions, 1 to 5 days daily as needed for erectile dysfunction, 90 tab(s), 2 Refill(s) triamcinolone 0.1% topical cream: 1 daniel, Topical, BID, for 14 day(s), apply thin film to affected area. MAX 14 days, then 7 days break, 15 gram(s), 0 Refill(s) Documented Medications Documented Misc Medication: allergy pill, doesn't know the name, 0 Refill(s) aspirin: 81 mg, Oral, qDayM, 0 Refill(s) dexamethasone/neomycin/polymyxin B 1 mg-3.5 mg-10,000 units/g ophthalmic ointment: 0 Refill(s), Medications (1) Active Scheduled: (0) Continuous: (1) Lactated Ringers 1,000 mL 1,000 mL, Intravenous, 20 mL/hr PRN: (0) Problem list: Medical Alcohol intake above recommended sensible limits / SNOMED CT 097489199 / Confirmed Chronic kidney disease, stage 3b / SNOMED CT 8602822627 / Confirmed CAD (coronary artery disease) / SNOMED CT 68742780 / Confirmed Sleep difficulties / SNOMED CT 214452571 / Confirmed Essential hypertension / SNOMED CT 57024678 / Confirmed Gritty eye / SNOMED CT 2217739958 / Confirmed GERD (gastroesophageal reflux disease) / SNOMED CT 875217007 / Confirmed Gout / SNOMED CT 051531925 / Confirmed History of cerebrovascular accident 2014 / SNOMED CT 3624378919 / Confirmed Personal history of colon cancer / SNOMED CT 0963409762 / Confirmed History of rectal cancer / SNOMED CT 0813804770 / Confirmed History of non-ST elevation myocardial infarction (NSTEMI) / SNOMED CT 7318150096 / Confirmed Exercise intolerance / SNOMED CT 614350197 / Confirmed Insomnia / SNOMED CT 129477354 / Confirmed Long-term current use of proton pump inhibitor therapy / SNOMED CT 1331183836 / Confirmed Mixed hyperlipidemia / SNOMED CT 439583024 / Confirmed Prediabetes / SNOMED CT 6998667332 / Confirmed Psoriasis of scalp / SNOMED CT 8903921415 / Confirmed PSA elevation / SNOMED CT 0779498115 / Confirmed History of tobacco use / SNOMED CT 666479834 / Confirmed Canceled: Non-ST elevation (NSTEMI) myocardial infarction / SNOMED CT 6318610567 Canceled: ALCOHOL ABUSE / SNOMED CT 18116538 Canceled: HYPERTENSION, BENIGN ESSENTIAL / SNOMED CT 9572615 Canceled: CVA (cerebral vascular accident) / SNOMED CT 538786096 Canceled: CVA (CEREBRAL VASCULAR ACCIDENT) / SNOMED CT 568754800 Canceled: Chronic airway disease / SNOMED CT 720482904 Canceled: CAD IN ASSINIBOINE AND [place] TRIBES ARTERY / SNOMED CT 8129219534 Canceled: DYSLIPIDEMIA / SNOMED CT 0302781367 Canceled: Grade A3 albuminuria / SNOMED CT 1875258822 Canceled: History of colon cancer / SNOMED CT 8574514870 Canceled: Hypercholesterolemia / SNOMED CT 64337222 Canceled: Hypertension / SNOMED CT 1152969695, Active Problems (20) Alcohol intake above recommended sensible limits CAD (coronary artery disease) Chronic kidney disease, stage 3b Essential hypertension Exercise intolerance GERD (gastroesophageal reflux disease) Gout Gritty eye History of cerebrovascular accident 2015 History of non-ST elevation myocardial infarction (NSTEMI) History of rectal cancer History of tobacco use Insomnia Long-term current use of proton pump inhibitor therapy Mixed hyperlipidemia Personal history of colon cancer Prediabetes PSA elevation Psoriasis of scalp Sleep difficulties Histories Past Medical History: Active Gout ([id number]) Family History: Stroke Mother (Mahi Emery, ) Cancer Father (Alexander Miranda, ) Procedure history: Cardiovascular stress testing ([id number]) on 07/09/2020 at 69 Years. Comments: 09/28/2020 10:41 Prachi Martinez MA (ABR-OE) Exercise treadmill stress test- No evidence of exercise-induced ischemia EKG criteria. The sensitivity of this test is low due to limited exercse time of only 3 minutes. Poor functional capacity for age and gender. Good chronotropic response, good blood pressure response and good heart rate recovery. Snell treamill score is 3, which represents intermediate risk for cardiac events. Colectomy, partial; with skin level cecostomy or colostomy (51811) on 10/24/2018 at 68 Years. Comments: 10/30/2018 15:54 WILLIAM Tavarez General Coronary stent patent ([id number]) on 09/17/2015 at 64 Years. Comments: 09/28/2020 10:45 Prachi Martinez MA (ABR-OE) Percutaneous intervention on the 90% stenosis in the mid LAD> Balloon angioplasty. Stent placement. Balloon angioplasty. Echocardiogram ([id number]) on 09/16/2015 at 64 Years. Comments: 09/28/2020 10:48 Prachi Martinez MA (ABR-OE) EF 65-70% Cataract extraction ([id number]) in the month of 10/2013 at 63 Years. Comments: 10/30/2018 10:49 Shayy Crandall RN Right Colon ([id number]). Proctosigmoidectomy (70257779). 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 He lives in [place] He lives there year-round. He has been there since 1986. He has a girlfriend, Celeste. He does talk to some of his children. Nutrition/Health 06/06/2023 Caffeine intake amount: occasionally Physical Examination Vital Signs 07/02/2023 10:35 EDT Temperature Oral 37.2 DegC Peripheral Pulse Rate 90 bpm Respiratory Rate 20 br/min Systolic Blood Pressure Non-Invasive 142 mmHg HI Diastolic Blood Pressure Non-Invasive 79 mmHg Blood Pressure Location Left arm Vital Signs(last 24 hrs) Last Charted Temp Oral37.2 DegC (JULY 01 10:35) SBPH 142mmHg (JULY 01 10:35) DBP79 mmHg (JULY 01 10:35) Measurements from flowsheet : Measurements 07/02/2023 10:49 EDT Height 172 cm [place] Body Weight 67.75 kg General: Alert and oriented. Airway: Normal neck range of motion. Mallampati classification: II (soft palate, fauces, uvula visible). Head: Normocephalic. Dentition Evaluation: Intact, Own teeth. Neck: Full range of motion. Respiratory: Lungs are clear to auscultation. Cardiovascular: Normal rate. Heart Sounds: Normal. Gastrointestinal: Soft. Musculoskeletal Normal range of motion. Integumentary: Intact, Warm, Dry. Neurologic: Alert, Oriented. Review / Management Results review: No qualifying data available , Lab results 07/02/2023 11:07 EDT SN - OH - Medication simethicone 40 mg/0.6 mL Liquid 30mL SN - OH - Route of Administration Endoscopic SN - OH - By (Single) SN - OH - By (Single) SN - OH - Time Administered 07/02/2023 11:07 07/02/2023 11:05 EDT SN - Proc - EBL 0 mL 07/02/2023 11:05 EDT SN - Proc - Anesthesia Type MAC SN - Proc - Actual Procedure COLONOSCOPY 07/02/2023 11:02 EDT SN - PP - Body Position Lateral Right Side-up Standard Intra-op 07/02/2023 11:01 EDT SN - GCD - Post-operative Diagnosis SCREENING SN - GCD - Case Level OPD Level 3 07/02/2023 11:01 EDT SN - CAt - Case Attendee SN - CAt - Case Attendee SN - CAt - Case Attendee SN - CAt - Case Attendee SN - CAt - Case Attendee SN - CAt - Case Attendee SN - CAt - Case Attendee SN - CAt - Case Attendee SN - CAt - Role Performed Primary Surgeon SN - CAt - Role Performed Proof Technician Helper 1 SN - CAt - Role Performed Designer And Patternmaker SN - CAt - Role Performed CONTROL ENGINEER 07/02/2023 11:00 EDT Marilla Pre-Surgical History & Physical History and Physical 07/02/2023 10:52 EDT Lactated Ringers Injection Begin Bag 1,000 mL mL 07/02/2023 10:49 EDT Designated Person #1 We May Share PHI Darren Designated Person #1 Relationship Son Designated Person #2 We May Share PHI Eliza Henning Designated Person #2 Relationship Other: daughter in law Additional Designated Person Share PHI Emily Tristanian - sister Height 172 cm [place] Body Weight 67.75 kg Status N/A Sensory Deficits None Infectious Disease Symptoms Patient states no symptoms Infectious Disease Recent Exposure No Alcohol and Drug Use No Employee of Institutional Living No Health Care Employee No History of Exposure to TB No History of Positive Chest X-Ray for TB No History of Positive TB Skin Test No Homeless No Known Immunosuppression No Recent Immigrant No Resident of Institutional Living No Bloody Sputum No Fatigue No Fever No Loss of Appetite No Night Sweats No Persistent Cough > 3 Weeks No Weight Loss No Barriers to Learning None evident Teaching Method Explanation, Printed materials Preferred Spoken Language Filipino Preferred Written Language Filipino Information Given by Patient Patient's Current Physicians Dr. Powers Discharge To, Anticipated Home independently Prev Test Positive/Diagnosis w/COVID-19 No Current Quarantine/Isolated any Illness No Any Contact with Sick Animals/Birds No Traveled Anywhere in Last 30 Days No N/A Personal Devices, Patient Valuables Glasses Admission Note-Nursing Procedure/Therapy Intake 07/02/2023 10:43 EDT Hand Right 07/02/2023 22 gauge Peripheral IV Activity: Insert new site Peripheral IV Dressing Condition: Clean, Dry, Intact Peripheral IV Dressing Activity: Transparent dressing Peripheral IV Line Status/Patency: Flushes easily, Continuous infusion Peripheral IV Site Condition: No complications Peripheral IV Number of Attempts: 1 07/02/2023 10:35 EDT Temperature Oral 37.2 DegC Peripheral Pulse Rate 90 bpm Respiratory Rate 20 br/min Systolic Blood Pressure Non-Invasive 142 mmHg HI Diastolic Blood Pressure Non-Invasive 79 mmHg Blood Pressure Location Left arm Respirations Unlabored Respiratory Pattern Regular Oxygen Therapy Room air Oxygen Saturation 94 % Abdomen Description Non-distended, Symmetric, Soft Skin Temperature Warm Skin Description Normal for ethnicity Skin Integrity Intact Mucous Membrane Color [place] Neurological Symptoms Patient denies Characteristics of Speech Clear Level of Consciousness Alert Strength All Extremities Strong Orientation Oriented x 4 Per Motor (2) Moves 4 extremities voluntarily or on command Per Respirations (2) Spontaneous respiration without support, RR > 10 Per Blood Pressure (2) BP 20% above or below preanesthetic level Per Pulse (2) Pulse 20% above or below preanesthetic level Per Oxygen Saturation (2) 94% or more Per Level of Consciousness (2) Fully awake Per III Score 12 Activity Status ADL Awake Standard Safety ID band on, Call device within reach, Bed in low position, Wheels locked, personal items within reach . Assessment and Plan [place] [employer] Anesthesiologists (ASA) physical status classification: Class III. Anesthetic Preoperative Plan Premedication: intravenous. Anesthetic technique: MAC. Induction: intravenously. Maintenance airway: Mask. Risks discussed: nausea, vomiting, headache, sore throat, dental injury, hypotension, allergic reaction, serious complications. Informed consent: signed by patient. Digitally Signed by KARISHMA GARCIA on 07/02/2023 11:09 AM [facility]05-20-2024 Note Date of Service July 02, 2023 Chief Complaint History of previous rectal tumor with transanal resection and then lymph node exploration laparoscopically. See note below. History of Present Illness This is a preprocedural/presurgical H&P. The patient was originally evaluated by Deborah Zimmerman, the PA. Please refer to her note also. I independently and personally performed a history and physical examination with this patient and repeated the bennett components of the exam/history. I have reviewed her note. The patient was scheduled for endoscopy based on that visit and was evaluated by me prior to it. Voice recognition software was utilized for this document and may contain recognition errors inherent in that process. This is a 72-year-old referred for colonoscopy. He apparently had laparoscopic than open surgery for a colon and rectal mass. Please see the associated physician office clerk assistant report. Review of consult record by Dr. 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 Follow-up proctoscopic examination March 2015 no lesions seen. Physical Exam Vitals and Measurements T: 37.2 C (Oral) HR: 90 RR: 20 BP: 142/79 SpO2: 94% HT: 172 cm No qualifying data available. General appearance: The patient is alert and oriented and in no apparent distress. Vital signs werereviewed. HEENT: Hearing is appropriate. Sclera are clear and nonicteric. Nares normal. Chest: No supraclavicular lymphadenopathy. Lungs: Lungs are clear bilaterally. No rales or wheezing. Cardiac: Regular rhythm. Abdomen: Bowel sounds are present. The abdomen is soft, nontender. No palpable masses. No organomegaly. No inguinal lymphadenopathy. Rectal examination is deferred. Extremities: No cyanosis or clubbing. Neurology: No gross focal neurologic deficits. Integument: No telangiectasias or petechiae are seen. Lymphatic: No supraclavicular cervical inguinal adenopathy found Psychiatric examination: The patient is alert and oriented. Cognition seems appropriate. Recent andremote memory intact. Affect is appropriate. Lab Results No 36 Hour Lab Data Assessment/Plan Orders: Lactated Ringers Infusion 1,000 mL, 1000 mL, Intravenous Communication Order (scheduled), 07/02/23 10:50:00 EDT, Once, 07/02/23 10:50:00 EDT, Urine test or waiver for women of child bearing age Communication Order (scheduled), 07/02/23 10:50:00 EDT, Once, 07/02/23 10:50:00 EDT, Fasting Blood Sugar prior to procedur if patient is diabetic Communication Order (scheduled), 07/02/23 10:50:00 EDT, Once, 07/02/23 10:50:00 EDT, Pathology Tissue Request Consult to Anesthesia, 07/02/23 10:50:00 EDT, *Other (specify in special instructions), Provide Anesthesia during Procedure Sign Consent, 07/02/23 10:50:00 EDT, Once, For Colonoscopy 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 Consent conference held. Problem List/Past Medical History Ongoing Alcohol intake above recommended sensible limits CAD (coronary artery disease) Chronic kidney disease, stage 3b Essential hypertension Exercise intolerance GERD (gastroesophageal reflux disease) Gout Gritty eye History of cerebrovascular accident 2014 History of non-ST elevation myocardial infarction (NSTEMI) History of rectal cancer History of tobacco use Insomnia Long-term current use of proton pump inhibitor therapy Mixed hyperlipidemia Personal history of colon cancer Prediabetes PSA elevation Psoriasis of scalp Sleep difficulties Procedure/Surgical History Cardiovascular stress testin07/09/20 Colectomy, partial; with skin level cecostomy or colostomy: 10/24/18 Coronary stent patent: 09/17/15 Echocardiogram: 09/16/15 Cataract extraction: 10/2013 Proctosigmoidectomy Colon Medications Home Medications (10) Active amLODIPine 10 mg oral tablet 10 mg = 1 tab(s), Oral, qDay aspirin 81 mg, Oral, qDayM atorvastatin 40 mg oral tablet 40 mg = 1 tab(s), Oral, qDay dexamethasone/neomycin/polymyxin B 1 mg-3.5 mg-10,000 units/g ophthalmic ointment Farxiga 5 mg oral tablet 5 mg = 1 tab(s), Oral, qDay losartan 50 mg oral tablet 100 mg = 2 tab(s), Oral, qDay Misc Medication pantoprazole 40 mg oral enteric coated tablet 40 mg = 1 tab(s), Oral, qDayAC sildenafil 20 mg oral tablet See Instructions triamcinolone 0.1% topical cream 1 daniel, Topical, BID Allergies NKA Social History Smoking Status - 09/08/2016 Former smoker Alcohol - Denies Alcohol Use, 09/08/2016 Type: Beer. Frequency: 3-5 times per week., 01/22/2023 Employment/School Status: Unemployed. 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 He lives in a camper [place]. He lives there year-round. He has been there since 1986. He has a girlfriend, Celeste. He does talk to some of his children.., 03/16/2021 Nutrition/Health Caffeine intake amount: occasionally., 10/30/2018 Substance Abuse - Denies Substance Abuse, 09/08/2016 Use: Never., 10/30/2018 Tobacco Tobacco Use: Former smoker, quit more than 30 days ago., 10/30/2018 Family History Cancer: Father. Stroke: Mother. Health Status Family Member(s) Family Member(s) Relationship: Mother, Name: Mahi Emery, Age: 66 Years, Cause: Stroke Relationship: Father, Name: Alexander Miranda, Age: 67 Years, Cause: cancer with metastasis Immunizations pneumococcal 13-valent conjugate vaccine: 0 unknown unit (12/20/15) pneumococcal 23-valent vaccine(Pneumovax: 0.5 mL (10/05/21) SARS-CoV-2 (COVID-19) mRNA-1273 vaccine: 50 mcg (12/20/20) SARS-CoV-2 (COVID-19) mRNA-1273 vaccine: 100 mcg (05/13/20) SARS-CoV-2 (COVID-19) mRNA-1273 vaccine: 100 mcg (04/15/20) Code Status No qualifying data available. Digitally Signed by JUDAH RUBIO MD on 07/02/2023 11:02 AM [facility]ments Appointment Date:06/29/2021 04:00:00 PM Scheduled Provider:JUDAH PRICE MD Location:[place] Appointment Type:PC OV Future Scheduled Tests Laboratory* Lipid Profile 12/01/20 [facility] Evaluation + Plan note Future Appointments Appointment Date:11/30/2021 10:30:00 AM Scheduled Provider:AVILA HWANG DO Location:[place] Appointment Type:PC OV Appointment Date:12/06/2021 09:00:00 AM Scheduled Provider:AVILA HWANG DO Location:[place] Appointment Type:PC Wellness Medicare Future Scheduled Tests Laboratory* Lipid Profile 12/01/20 [facility] Evaluation + Plan note Future Appointments Appointment Date:05/29/2022 11:00:00 AM Scheduled Provider:AVILA HWANG DO Location:[place] Appointment Type:PC OV Future Scheduled Tests Laboratory* Microalbumin Level Urine 02/08/22 Radiology* BD Bone Density DEXA Axial Skeleton 02/08/22 * US Abdomen and Aorta 02/08/22 [facility] Evaluation + Plan note Future Appointments Appointment Date:01/22/2023 11:30:00 AM Scheduled Provider:AVILA HWANG DO Location:[place] Appointment Type:PC OV Future Scheduled Tests Laboratory* Albumin/Creatinine Ratio, Random Urine 07/11/22 * Microalbumin Level Urine 02/08/22 Radiology* BD Bone Density DEXA Axial Skeleton 02/08/22 * US Abdomen and Aorta 02/08/22 [facility] evaluation + Plan note Future Appointments Appointment Date:06/06/2023 01:00:00 PM Scheduled Provider:AVILA HWANG DO Location:[place] Appointment Type:PC OV Follow Up Future Scheduled Tests Laboratory* Albumin/Creatinine Ratio, Random Urine 07/11/22 [facility] evaluation + Plan note Future Appointments Appointment Date:09/07/2023 01:30:00 PM Scheduled Provider:AVILA HWANG DO Location:[place] Appointment Type: OV [facility] evaluation + Plan note Future Appointments Appointment Date:12/28/2023 01:30:00 PM Scheduled Provider:AVILA HWANG DO Location:[place] Appointment Type:PC OV Future Scheduled Tests Laboratory* Basic Metabolic Panel 09/07/23 * A1C Hemoglobin 09/07/23 * Lipid Profile 09/07/23 [facility] evaluation + Plan note Future Appointments Appointment Date:12/28/2023 01:30:00 PM Scheduled Provider:AVILA HWANG DO Location:[place] Appointment Type:PC OV [facility] Evaluation + Plan note Future Appointments Appointment Date:08/27/2024 09:00:00 AM Scheduled Provider:AVILA HWANG DO Location:[place] Appointment Type:PC Wellness Medicare with Labs Future Scheduled Tests Laboratory* Lipoprotein (a) 05/23/24 * Apolipoprotein B 05/23/24 * Basic Metabolic Panel 05/23/24 * Uric Acid 05/23/24 * A1C Hemoglobin 05/23/24 * Lipid Profile 05/23/24 [facility] evaluation noteNo assessment information available [facility] Work Phone: Hospital course Narrative No data available for this section [facility] Hospital Discharge instructions No data available for this section [facility] Progress note No data available for this section [facility] Reason for referral (narrative)No reason for referral information availableWMer[facility] Work Phone: Summary Purpose Family History Relationship Condition Age at Onset Recorded Date/T frank father Malignant neoplasm Unknown mother Cerebrovascular accident (CVA) Unknown Advance Directives Advance Directive Response Recorded Date/ Time Do you have a Healthcare Power of Youth Development Professional? No September 29, 2024 3:25pm Advance Directives No October 7:09am Chief Complaint and Reason for Visit Chief Complaint Admit Date OPEN LEFT ANKLE FRACTURE September 29 5:06pm Additional Source Comments (unrecognized sect ion and content) No Status Records FoundNo Status Records FoundNo Status Records FoundNo Status Records FoundNo Status Records Found INFORMATION SOURCE (unrecogn ized section and content) DATE CREATED AUTHOR 10/21/2018 [facility] DATE CREATED AUTHOR AUTHOR'S ORGANIZ ATION 11/16/2018 [facility] DATE CREATED AUTHOR AUTHOR'S ORGANIZ ATION 04/02/2021 [facility] DATE CREATED AUTHOR AUTHOR'S ORGANIZ ATION 10/12/2023 [facility] ([place]) DATE CREATED AUTHOR AUTHOR'S ORGANIZ ATION 07/11/2024 [facility] Care Team (unrecognized sect ion and content) Care Team Personnel Name: AVILA HAWNG DO Position: P4 Physician - Primary Care Member Role: Primary Care Physician Address: Address: [address] [place] [address]- [place] Care Team Related Persons Name: RUBEN DARREN Name: STANKINZA DARREN Name: JAPANESE, FELICITAS Name: NONE, Patient Care team informatio n (unrecognized section and content) Team Status: Active Member Role/Relationship Status Dates Dr. Avila Hwang DO Primary Care Provider Active Team Status: Active Member Role/Relationship Status Dates Dr. Andrew Cruz MD Emergency Provider Active Sta rt: September 29, 2024 Dr. Avila Hwang DO Primary Care Provider Active Start: September 29, 2024 Dr. Maurisio Mukherjee MD Attending Provider Active Start: September 29, 2024 Goals (unrecognized section and content) Goals may be documented in a n alternate section FOR RECORDS PERTAINING TO PATIENTS WHO ARE OR HAVE BEEN ENROLLED IN A CHEMICAL DEPENDENCY/SUBSTANCEABUSE PROGRAM, SOME INFORMATION MAY BE OMITTED. This clinical summary was aggregated from multiple sources. Caution should be exercised in using it in the provision of clinical care. This summary normalizes information from multiple sources, and as a consequence, information in this document may materially change the coding, format and clinical context of patient data. In addition, data may be omitted in some cases. CLINICAL DECISIONS SHOULD BE BASED ON THE PRIMARY CLINICAL RECORDS. [email or web address]. provides no warranty or guarantee of the accuracy or completeness of information in this document.
[2024-09-30 01:01] VITALS: BP 138/68; PULSE 84; RESP 18; TEMP 36.6; O2SAT 92
[2024-09-30] MEDS: Cefazolin 1 GM/50 ML BAG IV ×2 (01:10→10:38)
[2024-09-30 03:54] VITALS: BP 132/58; PULSE 77; RESP 16; TEMP 36.6; O2SAT 94
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
[2024-09-30 10:23] VITALS: BP 135/75; PULSE 78; RESP 16; TEMP 37; O2SAT 98
[2024-09-30] MEDS: Lactated Ringers 1,000 ML 100 ML IV (10:34)
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
[2024-09-30 16:27] VITALS: BP 149/81; PULSE 98; RESP 16; TEMP 36.9; O2SAT 99
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
--- NOTE | 2024-09-30 18:09 | PCM.DC ---
Discharge Instructions DC O2, CPAP, BIPAP needs Home O2 Discharge instructions: No Dressing / Incision Discharge Activity: Use Walker (Nonweightbearing on operative leg.) Weight Bearing Status: No weight bearing (Nonweightbearing with walker on operative side.) Keep extremity elevated above heart level: Left Leg (Ice and elevate operative leg.) Dressing / Incision Call your doctor if your incision/area has: Continuous Slow Oozing, Sudden Increased Bleeding, Increased Pain/ Swelling, Increased Redness, Foul Smelling Discharge and Swelling at the incision site Call your doctor if you observe: Fever of 101 or Higher, Coldness, Increased Pain, Numbness or Tingling, Change in Color, Inability to urinate, Inability to have a bowel movement, Shortness of breath, Dizziness, Fainting spells, Swelling in the ankles, Chest pain, Increased palpitations (irregular heartbeat), Calf discomfort and Uncontrolled pain Remove Dressing in: do not remove dressing (Do not remove splint at this time. Keep splint clean and dry.) Cleanse incision/area with: Keep Dressing Clean & Dry (Keep splint clean and dry.) Additional Dressing/Incision Instructions:: Patient was educated to keep splint clean and dry at all times. Take aspirin 81 mg twice daily for 4 weeks postoperatively. Patient received 24 hours postoperative antibiotics. OARRS report was checked and reviewed by myself today. Follow Up Care Test Results: Test results from this visit will be discussed in further detail at your follow-up appointment, if applicable. Discharge Plan Admission Admit Date/Time: 09/29/24 21:23 Attending Provider: Maurisio Mukherjee Primary Care Provider: Avila Perea [employer] Providers: Vel Still Robert; Shannon Duval Discharge Orders/Prescriptions Prescriptions: New acetaminophen 500 mg Tablet 1,000 mg PO Q8 Qty: 30 0RF Rx Instructions: Take Tylenol 1000 mg every 8 hours. aspirin 81 mg capsule 81 mg PO BIDCM 7 Days Qty: 14 0RF Rx Instructions: Take aspirin 81 mg twice daily for 4 weeks postoperatively. oxycodone 5 mg Tablet 5 mg PO Q4H PRN PRN (Reason: As needed for pain) 7 Days Qty: 28 0RF Continued losartan 50 MG tablet 100 mg PO DAILY atorvastatin 40 MG tablet 40 mg PO QHS sildenafil [Viagra] 25 MG tablet 25 mg PO DAILY PRN (Reason: ERECTILE) amlodipine 10 mg tablet 10 mg PO DAILY pantoprazole 40 mg tablet,delayed release (DR/EC) 40 mg PO DAILY ezetimibe 10 mg tablet 10 mg PO DAILY hydrochlorothiazide 12.5 mg capsule 12.5 mg PO QODAY dapagliflozin propanediol [Farxiga] 5 mg tablet 5 mg PO DAILY Held aspirin [Adult Aspirin Regimen] 81 mg tablet,delayed release (DR/EC) 81 mg PO DAILY Hold Instructions: Resume on 10/21/24. Hold while taking aspirin 81 mg twice daily for 4 weeks postoperatively. Referrals / Follow Up: [facility] [Outside] Kwaku Price MD [Non-Staff] - Disposition Disposition (needs filled in before D/C Order can be placed): Home, Self Care
== END 2024-09-30 20:04 | disposition home or self-care (01) ==
LOC: ED 16:09 → SDC 17:07 → ACINP 17:08 → SDC 22:31 → ACINP 22:31 → MS3 22:43
PROVIDERS: Admitting Provider Specialist; Emergency Provider Emergency Medicine; Visit Provider Specialist
PROC: (CPT 27814; principal; 2024-09-29 19:00)
DX: S82.842B Displaced bimalleolar fracture of left lower leg, initial encounter for open fracture type I or II (principal); I13.0 Hypertensive heart and chronic kidney disease with heart failure and stage 1 through stage 4 chronic kidney disease, or unspecified chronic kidney disease; I50.9 Heart failure, unspecified; N18.30 Chronic kidney disease, stage 3 unspecified; E78.5 Hyperlipidemia, unspecified; I25.10 Atherosclerotic heart disease of native coronary artery without angina pectoris; Z87.891 Personal history of nicotine dependence; Z79.82 Long term (current) use of aspirin; K21.9 Gastro-esophageal reflux disease without esophagitis; V23.49XA Other motorcycle driver injured in collision with car, pick-up truck or van in traffic accident, initial encounter; Y93.89 Activity, other specified; Y92.89 Other specified places as the place of occurrence of the external cause; Z23 Encounter for immunization; Z79.899 Other long term (current) drug therapy; R94.31 Abnormal electrocardiogram [ECG] [EKG]; I44.0 Atrioventricular block, first degree; S51.811A Laceration without foreign body of right forearm, initial encounter; F10.10 Alcohol abuse, uncomplicated
CPT/HCPCS: 27814; 11012; 27829; 01480; 71045; 73600; 73610; 76000; 80048; 85025; 90715; 93005; 96361; 96365; 96366; 96375; 96376; 97162; 99221; 99285; C1713; A4216; G0378; J2405